=== PATIENT | female | born 1940 | race Caucasian/White ===

== ENCOUNTER → 2016-12-01 | Outpatient (CLI) | payer OTHER ==
[~2016-12-01] MED LIST: AMAN100T PO; ASPI81TA28 PO; CALC600T; CALCTAB5 PO; CARB25TA12 PO; CLON2TAB3 PO; DTR5 PO; ENTA200T PO; GABA-113 PO; MIRT30TA5 PO; OXYB5TAB74 PO; QUET1TAB30 PO; SENNTAB23 PO; ZNTT/150 PO; [UNRECOGNIZED DRUG - CODE] TOP
--- NOTE | 2016-12-01 10:13 | DIAGNOSTIC IMAGING REPORT ---
(BARIUM SWALLOW) ESOPHAGUS CLINICAL HISTORY: G20 Parkinson's [id number] Dysphagia COMPARISON STUDY: None FLUOROSCOPY TIME: 4.1 minutes. FINDINGS: Somewhat diminished oral motility. Trace penetration with no evidence for laith aspiration. Generalized esophageal dysmotility throughout. Moderate generalized esophageal spasm and is mid to distal aspect. Mild gastroesophageal reflux. IMPRESSION: Generalized esophageal dysmotility with spasm of the mid to distal aspect of the esophagus. Mild gastroesophageal reflux. Trace penetration with no evidence for laith aspiration Electronically signed by: Poncho Silverman M.D. 12/01/2016 10:12 AM Dictated Date/Time: 12/01/2016 10:10 AM
== END | disposition home or self-care (01) ==
LOC: C.RAD 09:28
PROVIDERS: ATTEND Nurse Practitioner
DX: R13.10 Dysphagia, unspecified (principal); G20 Parkinson's disease; K22.4 Dyskinesia of esophagus; K21.9 Gastro-esophageal reflux disease without esophagitis

== ENCOUNTER 2017-02-12 10:39 | Inpatient (IN) | payer OTHER ==
[~2017-02-12] VITALS: Ht 160 cm; Wt 57.3 kg
[~2017-02-12 10:39] MED LIST changes: -CALC600T; -OXYB5TAB74 PO; -ZNTT/150 PO
--- NOTE | 2017-02-12 11:00 | EMERGENCY ROOM VISIT NOTE ---
History Report prepared by Logan: Barbara Ortiz Under the Supervision of: Dr. Ubaldo Collins M.D. First contact with patient: 10:50 Chief Complaint: WEAKNESS Stated Complaint: WEAK, HEAD AND LEGS FEEL HEAVY, NO SPEAKING CORREC History of Present Illness The patient is a 76 year old female who presents to the Emergency Room with complaints of a sudden change in mental status that occurred this morning. Per the patient's daughter, the patient has a history of Parkinson's disease. She states that the patient was increasingly confused today. The patient's daughter notes that the patient was weak today as well. She states that is abnormal for the patient, stating that she is typically able to care for herself. The patient's daughter notes that the patient fell the other day and bumped her nose, but denies being evaluated after the fall. She states that the patient has had a normal appetite. The patient's daughter denies the patient having any recent medication change. She denies the patient having any significant history of UTIs. Source of History: family (daughter) Onset: this morning Position: other (global) Quality: other (change in mental status) Timing: other (sudden) Associated Symptoms: + weakness Note: Associated Symptoms: increasingly confused Review of Systems See HPI for pertinent positives & negatives. A total of 10 systems reviewed and were otherwise negative. Past Medical & Surgical Medical Problems: (1) Constipation (2) Parkinson's disease Surgical Problems: (1) Hx of appendectomy (2) Hx of cholecystectomy Family History Patient reports no known family medical history. Social History Smoking Status: Never Smoker Alcohol Use: none Drug Use: none Marital Status: Housing Status: lives with family Occupation Status: disabled Current/Historical Medications Scheduled Amantadine Hcl (Symmetrel), 1 TAB PO BID Aspirin (Aspirin Ec), 81 MG PO DAILY Carbidopa/Levodopa (Sinemet 25MG/100MG), 1 TAB PO QID Clonazepam (Klonopin), 2 MG PO HS Entacapone (Comtan), 200 MG PO QID Gabapentin (Neurontin), 300 MG PO BID Mirtazapine (Mirtazapine Odt), 30 MG PO HS Oxybutynin Chloride (Ditropan), 1 TAB PO BID Quetiapine Fumarate (Seroquel), 25 MG PO HS Ranitidine (Zantac), 1 TAB PO BID Rotigotine (Neupro), 1 MG TOP Q24H Sennosides-Docusate Sodium (Stool Softener), 1 TAB PO QD Miscellaneous Medications Calcium Carbonate (Calcium 600) Allergies Coded Allergies: Flu Virus Vaccine (Unverified Allergy, Mild, UNSURE, 02/12/17) Physical Exam Vital Signs Date Time Temp Pulse Resp B/P Pulse Ox O2 Delivery O2 Flow Rate FiO2 02/12/17 12:45 94 Room Air 02/12/17 12:19 36.5 67 16 98/61 94 Room Air 02/12/17 10:44 36.3 84 20 117/68 96 Room Air Physical Exam GENERAL: Patient is chronically unwell appearing, altered, making nonspecific movements of arms periodically, moves legs periodically, moans, nonverbal. HEENT: No acute trauma, normocephalic atraumatic, mucous membranes moist, no nasal congestion, no scleral icterus. NECK: No stridor, no adenopathy, no meningismus, trachea is midline. LUNGS: No dyspnea. Clear to auscultation and equal bilaterally. No wheeze, no rhonchi. HEART: Regular rate and rhythm. No murmurs, rubs, gallops appreciated. ABDOMEN: Vague suprapubic tenderness to palpation. Soft, bowel sounds positive , no masses appreciated, no peritonitis. BACK: No midline tenderness, no CVA tenderness EXTREMITIES: Normal motion all extremities, no cyanosis, no edema. NEUROLOGIC: Altered, moans, nonverbal, moves arms an legs periodically. SKIN: No rash, no jaundice, no diaphoresis. Medical Decision & Procedures ER Provider Diagnostic Interpretation: Radiology results and stated below per my review and radiologist interpretation: HEAD CT NONCONTRAST CT DOSE: 1326.81 mGy.cm HISTORY: Mental status change AMS TECHNIQUE: Multiaxial CT images of the head were performed without the use of intravenous contrast. Comparison: 09/17/2015 Findings: The paranasal sinuses and mastoid air cells are clear. The calvarium and skull base are intact. The ventricles and sulci are within normal limits. There is no mass, hematoma, midline shift, or acute infarct. Small left-sided subdural hygroma unaltered from the prior exam. No midline shift. Impression: Chronic and age-related change. No acute process. Electronically signed by: Poncho Silverman M.D. 02/12/2017 11:18 AM Dictated Date/Time: 02/12/2017 11:15 AM CHEST ONE VIEW PORTABLE CLINICAL HISTORY: Acute change in mental status. Difficulty speaking. COMPARISON STUDY: No previous studies for comparison. FINDINGS: The heart is normal in size. There is a suboptimal inspiration. There are increased basilar markings, likely on a hypoventilatory basis. There is no lobar consolidation. There is no overt failure. There are no pleural effusions.[ IMPRESSION: Increased basilar markings, likely on a hypoventilatory basis. No evidence of lobar consolidation Electronically signed by: Patrick Herrera M.D. 02/12/2017 11:16 AM Dictated Date/Time: 02/12/2017 11:15 AM Laboratory Results 02/12/17 11:00 Red Blood Count 4.91, Mean Corpuscular Volume 90.4, Mean Corpuscular Hemoglobin 31.4, Mean Corpuscular Hemoglobin Concent 34.7, Mean Platelet Volume 9.4, Neutrophils (%) (Auto) 84.6, Lymphocytes (%) (Auto) 10.6, Monocytes (%) (Auto) 4.1, Eosinophils (%) (Auto) 0.3, Basophils (%) (Auto) 0.3, Neutrophils # (Auto) 6.32, Lymphocytes # (Auto) 0.79, Monocytes # (Auto) 0.31, Eosinophils # (Auto) 0.02, Basophils # (Auto) 0.02 02/12/17 11:00 Test 02/12/17 10:55 02/12/17 11:00 02/12/17 11:15 Bedside Glucose 111 mg/dl (70-90) White Blood Count 7.47 K/uL (4.8-10.8) Red Blood Count 4.91 M/uL (4.2-5.4) Hemoglobin 15.4 g/dL (12.0-16.0) Hematocrit 44.4 % (37-47) Mean Corpuscular Volume 90.4 fL (80-100) Mean Corpuscular Hemoglobin 31.4 pg (25-34) Mean Corpuscular Hemoglobin Concent 34.7 g/dl (32-36) Platelet Count 210 K/uL (130-400) Mean Platelet Volume 9.4 fL (7.4-10.4) Neutrophils (%) (Auto) 84.6 % Lymphocytes (%) (Auto) 10.6 % Monocytes (%) (Auto) 4.1 % Eosinophils (%) (Auto) 0.3 % Basophils (%) (Auto) 0.3 % Neutrophils # (Auto) 6.32 K/uL (1.4-6.5) Lymphocytes # (Auto) 0.79 K/uL (1.2-3.4) Monocytes # (Auto) 0.31 K/uL (0.11-0.59) Eosinophils # (Auto) 0.02 K/uL (0-0.5) Basophils # (Auto) 0.02 K/uL (0-0.2) RDW Standard Deviation 43.4 fL (36.4-46.3) RDW Coefficient of Variation 13.2 % (11.5-14.5) Immature Granulocyte % (Auto) 0.1 % Immature Granulocyte # (Auto) 0.01 K/uL (0.00-0.02) Prothrombin Time 10.9 SECONDS (9.0-12.0) Prothromb Time International Ratio 1.0 (0.9-1.1) Activated Partial Thromboplast Time 29.2 SECONDS (21.0-31.0) Partial Thromboplastin Ratio 1.1 Anion Gap 4.0 mmol/L (3-11) Estimated GFR () 79.4 Estimated GFR (Non- 68.5 BUN/Creatinine Ratio 24.6 (10-20) Calcium Level 8.5 mg/dl (8.5-10.1) Total Bilirubin 0.8 mg/dl (0.2-1) Direct Bilirubin 0.2 mg/dl (0-0.2) Aspartate Amino Transf (AST/SGOT) 9 U/L (15-37) Alanine Aminotransferase (ALT/SGPT) 9 U/L (12-78) Alkaline Phosphatase 119 U/L (45-117) Troponin I < 0.015 ng/ml (0-0.045) Total Protein 6.8 gm/dl (6.4-8.2) Albumin 4.1 gm/dl (3.4-5.0) Urine Color ORANGE Urine Appearance C (CLEAR) Urine pH (4.5-7.5) Urine Specific [place] (1.000-1.030) Urine Protein NEG (NEG) Urine Glucose (UA) (NEG) Urine Ketones (NEG) Urine Occult Blood (NEG) Urine Nitrite (NEG) Urine Bilirubin (NEG) Urine Urobilinogen (NEG) Urine Leukocyte Esterase (NEG) Urine RBC 10-30 /hpf (0-4) Urine WBC >30 /hpf (0-5) Urine Epithelial Cells 0-5 /lpf (0-5) Urine Bacteria 1+ (NEG) Laboratory results as reviewed by me. Medications Administered Medications (Trade) Dose Ordered Sig/Shreyas Route Start Time Stop Time Status Last Admin Dose Admin Ceftriaxone Sodium (Rocephin Inj) 1 gm NOW STAT IV 02/12/17 12:21 02/12/17 12:22 DC 02/12/17 12:27 1 GM ECG Indication: altered mental status Rate (beats per minute): 69 Rhythm: normal sinus Findings: PVC, no acute ischemic change, other (no STEMI) ED Course 1050: The patient was evaluated in room C9. A complete history and physical exam was performed. 1221: Ordered Rocephin Inj 1 gm IV. 1225: I reevaluated the patient and she is stable. I discussed the exam findings with her and her family and I discussed the treatment plan. They verbalized complete understanding and agreement. The patient will be evaluated for further treatment. 1229: I discussed the patients case with SHANE Vieyra. He is going to evaluate the patient for further treatment. Medical Decision Differential: Toxicological, Infectious, Stroke, SAH, Trauma, Electrolyte Abnormality, Hypoglycemia, Alcohol Intoxication, Drug Intoxication, Cardiac Abnormality, Sepsis, Meningitis/Encephalitis, Trauma, Excited Delirium, Serotonin Syndrome, Psychiatric, amongst other pathologies entertained. 76 yr old female with parkinson's disease who arrives for worsening mental status over last 24 hours with confusion. She is not at her baseline per family. She has urine with possible UTI. She does not appear meningitic. No other clear evidence of infection. Suspect UTI causing AMS. Will give rocephin and bring in as family notes they are unable to care for her like this. Not septic appearing. Consults Time Called: 1225 Consulting Physician: SHANE Vieyra Returned Call: 1229 I discussed the patients case with SHANE Vieyra. He is going to evaluate the patient for further treatment. Impression Primary Impression: UTI (urinary tract infection) Additional Impression: Altered mental status Scribe Attestation The scribe's documentation has been prepared under my direction and personally reviewed by me in its entirety. I confirm that the note above accurately reflects all work, treatment, procedures, and medical decision making performed by me. Departure Information Dispostion Being Evaluated By Hospitalist Christine Christianson C.R.N.P. (PCP) Problem Qualifiers Primary Impression: UTI (urinary tract infection) Urinary tract infection type: acute cystitis Hematuria presence: without hematuria Qualified Codes: N30.00 - Acute cystitis without hematuria Additional Impression: Altered mental status Altered mental status type: disorientation Qualified Codes: R41.0 - Disorientation, unspecified
[2017-02-12 11:14] LABS: BASO % 0.3 %; BASO ABS # 0.02 K/uL (0-0.2); COMPLETE YES; EOS % 0.3 %; HEMATOCRIT 44.4 % (37-47); IG% 0.1 %; LYMPH % 10.6 %; LYMPH ABS # 0.79 K/uL (1.2-3.4); MEAN CELL VOLUME 90.4 fL (80-100); MEAN CORPUSCULAR HEMOGLOBIN 31.4 pg (25-34); MEAN CORPUSCULAR HGB CONC 34.7 g/dl (32-36); MEAN PLATELET VOLUME 9.4 fL (7.4-10.4); MONO % 4.1 %; NEUT % 84.6 %; PLATELET COUNT 210 K/uL (130-400); RED BLOOD COUNT 4.91 M/uL (4.2-5.4); WHITE BLOOD COUNT 7.47 K/uL (4.8-10.8)
--- NOTE | 2017-02-12 11:18 | DIAGNOSTIC IMAGING REPORT ---
CHEST ONE VIEW PORTABLE CLINICAL HISTORY: Acute change in mental status. Difficulty speaking. COMPARISON STUDY: No previous studies for comparison. FINDINGS: The heart is normal in size. There is a suboptimal inspiration. There are increased basilar markings, likely on a hypoventilatory basis. There is no lobar consolidation. There is no overt failure. There are no pleural effusions.[ IMPRESSION: Increased basilar markings, likely on a hypoventilatory basis. No evidence of lobar consolidation Electronically signed by: Patrick Herrera M.D. 02/12/2017 11:16 AM Dictated Date/Time: 02/12/2017 11:15 AM
--- NOTE | 2017-02-12 11:20 | DIAGNOSTIC IMAGING REPORT ---
HEAD CT NONCONTRAST CT DOSE: 1326.81 mGy.cm HISTORY: Mental status change AMS TECHNIQUE: Multiaxial CT images of the head were performed without the use of intravenous contrast. Comparison: 09/17/2015 Findings: The paranasal sinuses and mastoid air cells are clear. The calvarium and skull base are intact. The ventricles and sulci are within normal limits. There is no mass, hematoma, midline shift, or acute infarct. Small left-sided subdural hygroma unaltered from the prior exam. No midline shift. Impression: Chronic and age-related change. No acute process. Electronically signed by: Poncho Silverman M.D. 02/12/2017 11:18 AM Dictated Date/Time: 02/12/2017 11:15 AM
[2017-02-12 11:23] LABS: PARTIAL THROMBOPLASTIN RATIO 1.1; PROTHROMBIN TIME (PATIENT) 10.9 SECONDS (9.0-12.0)
[2017-02-12 11:28] LABS: ALT/SGPT 9 U/L (12-78); BLOOD UREA NITROGEN 20 mg/dl (7-18); BUN/CREATININE RATIO 24.6 (10-20); CALCIUM 8.5 mg/dl (8.5-10.1); CARBON DIOXIDE 29 mmol/L (21-32); CHLORIDE 112 mmol/L (98-107); CREATININE 0.82 mg/dl (0.60-1.20); GLUCOSE 113 mg/dl (70-99); POTASSIUM 3.7 mmol/L (3.5-5.1); SODIUM 145 mmol/L (136-145)
[2017-02-12 11:30] LABS: MANUAL MICROSCOPIC REQUIRED? YES; REVIEW REQ? NO; URINE APPEARANCE C (CLEAR); URINE COLOR ORANGE
[2017-02-12 11:34] LABS: ALKALINE PHOSPHATASE 119 U/L (45-117); AST/SGOT 9 U/L (15-37)
[2017-02-12 11:35] LABS: SULFASALICYLIC ACID NEG (NEG)
[2017-02-12 11:50] LABS: URINE WBC >30 /hpf (0-5)
[2017-02-12 11:58] LABS: ZZURINE CULT IF INDIC CATH YES
[2017-02-12 11:59] LABS: URINE BACTERIA 1+ (NEG)
[2017-02-12] MEDS ORDERED: DTR/5 PO (12:12)
[2017-02-12] MEDS ORDERED: ZNTT/150 PO (12:12)
[2017-02-12] MEDS ORDERED: CALC600T PO (12:12)
[2017-02-12] MEDS ORDERED: CEFTRIAXONE SOD INJ 1 GM ADDVIAL IV STA (12:21)
[2017-02-12 12:45] VITALS: O2SAT 94
[2017-02-12] MEDS ORDERED: ONDANSETRON INJ 2 MG/ML 2 ML VIAL IV PRN (13:15)
--- NOTE | 2017-02-12 13:31 | History and Physical ---
History & Physical Date & Time of Service: Feb 12, 2017 at 13:09 Chief Complaint: Weak, Head And Legs Feel Heavy, No Speaking [facility] Primary Care Physician: Christine Her C.R.N.P. 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 The patient is present with her [id number]. The patient has akathisia throughout the exam, but is overall able to tell me history. She has some difficulty saying what she wants to say, and speaks in a very soft tone. Pt reports dysuria and increased urinary frequency x 2-3 days. It has been discolored, orange, but has been like this for a long time. She denies gross hematuria. Today she developed lethargy, difficulty with ambulation, and weakness. She denies headache, slurred speech, or unilateral motor changes or weakness. She normally is able to dress and feed herself, but this morning required assistance. Pt has been able to eat and drink without difficulty although was recently seen for episode of dysphagia a few months ago. Her last BM was yesterday and was soft and brown. She lives at home with her son, the daughter in law who is present, and grandson who help care for her. She does not require supplemental O2, and typically ambulates without assistance. In the ED the pt UA appears dirty, with +RBCs, >30 WBC and 1+ bacteruria, nitrate and esterase were not able to be evaulated in the lab. Her labs are essentially unremarkable without leukocytosis. VSS. CT head obtained and is negative for acute findings. CXR is clear. Past Medical/Surgical History Medical Problems: (1) Constipation Status: Resolved (2) Parkinson's disease Status: Chronic Family History Patient reports no known family medical history. Social History Smoking Status: Never Smoker Smokeless Tobacco Use: No Alcohol Use: none Drug Use: none Marital Status: Housing status: lives with family Occupational Status: disabled Multi-Drug Resistant Organisms History of MDRO: No Allergies Coded Allergies: Flu Virus Vaccine (Unverified Allergy, Mild, UNSURE, 02/12/17) Home Medications Scheduled Amantadine Hcl (Symmetrel), 1 TAB PO BID Aspirin (Aspirin Ec), 81 MG PO DAILY Carbidopa/Levodopa (Sinemet 25MG/100MG), 1 TAB PO QID Clonazepam (Klonopin), 2 MG PO HS Entacapone (Comtan), 200 MG PO QID Gabapentin (Neurontin), 300 MG PO BID Mirtazapine (Mirtazapine Odt), 30 MG PO HS Oxybutynin Chloride (Ditropan), 1 TAB PO BID Quetiapine Fumarate (Seroquel), 25 MG PO HS Ranitidine (Zantac), 1 TAB PO BID Rotigotine (Neupro), 1 MG TOP Q24H Sennosides-Docusate Sodium (Stool Softener), 1 TAB PO QD Miscellaneous Medications Calcium Carbonate (Calcium 600) Review of Systems Constitutional: + fatigue, + weakness, No chills, No fever, No sweats Eyes: No diplopia, No worsening of vision ENT: No sore throat, No trouble swallowing Respiratory: No cough, No shortness of breath, No wheezing Cardiovascular: No chest pain, No palpitations Abdomen: No constipation, No diarrhea, No nausea, No pain, No vomiting Musculoskeletal: No calf pain, No joint pain, No swelling Genitourinary - Female: + dysuria, + urinary frequency, No hematuria Neurologic: + problem reported (Parkinsons disease with akathesia), No numbness /tingling Endocrine: + fatigue Integumentary: No itch, No rash Physical Exam Vital Signs Date Time Temp Pulse Resp B/P Pulse Ox O2 Delivery O2 Flow Rate FiO2 02/12/17 12:45 94 Room Air 02/12/17 12:19 36.5 67 16 98/61 94 Room Air 02/12/17 10:44 36.3 84 20 117/68 96 Room Air General Appearance: WD/WN, + mild distress, + pertinent finding (continuous akathesia during interview and exam, does not appear uncomfortable) Head: normocephalic, atraumatic Eyes: PERRL, EOMI ENT: hearing grossly normal, pharynx normal, + pertinent finding (upper dentures) Neck: supple, no JVD Respiratory/Chest: lungs clear, normal breath sounds, no respiratory distress, no accessory muscle use Cardiovascular: regular rate, rhythm, no JVD, no murmur, normal peripheral pulses Abdomen/GI: normal bowel sounds, non tender, soft Extremities/Musculoskelatal: normal inspection, no calf tenderness, no pedal edema Neurologic/Psych: alert, oriented x 3, + pertinent finding (+akasthesia involving upper extremities, tongue, and facial grimacing. ) Skin: normal color, warm/dry Diagnostics Laboratory Results Results Past 24 Hours Test 02/12/17 10:55 02/12/17 11:00 02/12/17 11:15 Range/Units Bedside Glucose 111 70-90 mg/dl White Blood Count 7.47 4.8-10.8 K/uL Red Blood Count 4.91 4.2-5.4 M/uL Hemoglobin 15.4 12.0-16.0 g/dL Hematocrit 44.4 37-47 % Mean Corpuscular Volume 90.4 80-100 fL Mean Corpuscular Hemoglobin 31.4 25-34 pg Mean Corpuscular Hemoglobin Concent 34.7 32-36 g/dl Platelet Count 210 130-400 K/uL Mean Platelet Volume 9.4 7.4-10.4 fL Neutrophils (%) (Auto) 84.6 % Lymphocytes (%) (Auto) 10.6 % Monocytes (%) (Auto) 4.1 % Eosinophils (%) (Auto) 0.3 % Basophils (%) (Auto) 0.3 % Neutrophils # (Auto) 6.32 1.4-6.5 K/uL Lymphocytes # (Auto) 0.79 1.2-3.4 K/uL Monocytes # (Auto) 0.31 0.11-0.59 K/uL Eosinophils # (Auto) 0.02 0-0.5 K/uL Basophils # (Auto) 0.02 0-0.2 K/uL RDW Standard Deviation 43.4 36.4-46.3 fL RDW Coefficient of Variation 13.2 11.5-14.5 % Immature Granulocyte % (Auto) 0.1 % Immature Granulocyte # (Auto) 0.01 0.00-0.02 K/uL Prothrombin Time 10.9 9.0-12.0 SECONDS Prothromb Time International Ratio 1.0 0.9-1.1 Activated Partial Thromboplast Time 29.2 21.0-31.0 SECONDS Partial Thromboplastin Ratio 1.1 Sodium Level 145 136-145 mmol/L Potassium Level 3.7 3.5-5.1 mmol/L Chloride Level 112 98-107 mmol/L Carbon Dioxide Level 29 21-32 mmol/L Anion Gap 4.0 3-11 mmol/L Blood Urea Nitrogen 20 7-18 mg/dl Creatinine 0.82 0.60-1.20 mg/dl Estimated GFR () 79.4 Estimated GFR (Non- 68.5 BUN/Creatinine Ratio 24.6 10-20 Random Glucose 113 70-99 mg/dl Calcium Level 8.5 8.5-10.1 mg/dl Total Bilirubin 0.8 0.2-1 mg/dl Direct Bilirubin 0.2 0-0.2 mg/dl Aspartate Amino Transf (AST/SGOT) 9 15-37 U/L Alanine Aminotransferase (ALT/SGPT) 9 12-78 U/L Alkaline Phosphatase 119 45-117 U/L Troponin I < 0.015 0-0.045 ng/ml Total Protein 6.8 6.4-8.2 gm/dl Albumin 4.1 3.4-5.0 gm/dl Urine Color ORANGE Urine Appearance C CLEAR Urine pH 4.5-7.5 Urine Specific [place] 1.000-1.030 Urine Protein NEG NEG Urine Glucose (UA) NEG Urine Ketones NEG Urine Occult Blood NEG Urine Nitrite NEG Urine Bilirubin NEG Urine Urobilinogen NEG Urine Leukocyte Esterase NEG Urine RBC 10-30 0-4 /hpf Urine WBC >30 0-5 /hpf Urine Epithelial Cells 0-5 0-5 /lpf Urine Bacteria 1+ NEG Microbiology Results 02/12/17 Urine Culture, Received Pending Diagnostic Radiology HEAD CT NONCONTRAST CT DOSE: 1326.81 mGy.cm HISTORY: Mental status change AMS TECHNIQUE: Multiaxial CT images of the head were performed without the use of intravenous contrast. Comparison: 09/17/2015 Findings: The paranasal sinuses and mastoid air cells are clear. The calvarium and skull base are intact. The ventricles and sulci are within normal limits. There is no mass, hematoma, midline shift, or acute infarct. Small left-sided subdural hygroma unaltered from the prior exam. No midline shift. Impression: Chronic and age-related change. No acute process. Electronically signed by: Poncho Silverman M.D. 02/12/2017 11:18 AM Dictated Date/Time: 02/12/2017 11:15 AM The status of this report is Signed. CHEST ONE VIEW PORTABLE CLINICAL HISTORY: Acute change in mental status. Difficulty speaking. COMPARISON STUDY: No previous studies for comparison. FINDINGS: The heart is normal in size. There is a suboptimal inspiration. There are increased basilar markings, likely on a hypoventilatory basis. There is no lobar consolidation. There is no overt failure. There are no pleural effusions.[ IMPRESSION: Increased basilar markings, likely on a hypoventilatory basis. No evidence of lobar consolidation Electronically signed by: Patrick Herrera M.D. 02/12/2017 11:16 AM Dictated Date/Time: 02/12/2017 11:15 AM The status of this report is Signed. CXR normal EKG Vent. rate 69 BPM TX interval 150 ms QRS duration 82 ms QT/QTc 390/417 ms P-R-T axes 39 -2 0 NSR. T wave inversion in the inferior leads. 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 UTI - Admit to med surg - UA appears dirty, with +RBCs, >30 WBC and 1+ bacteruria, nitrate and esterase were not able to be evaulated in the lab. - Started on ceftriaxone IV in the ED, will continue - UA appears dirty, follow UCx results and sensitivities - Other infectious sources ruled out, CXR appears clear. No leukocytosis, afebrile. - CBC and PRP QOD. - Cont oxybutinin for now - Will order pyridium for pain for now - PT/OT Parkinsons disease - CT head obtained to rule out acute infarct, no new or acute changes seen. - Will continue the patient on her [employer] meds including: Sinemet 50-200 mg five times daily, Neurpro transdermal patch 2mg daily, and entacpone 200 mg five times daily with Sinemet. Insomnia - Will continue seroquel 25 mg QHS - Hold mirtazapine as pt daughter reports she has not been using this at home due to worsening visual hallucinations with mirtazapine and seroquel together. She states visual hallucinations have not been present since eliminating mirtazapine. Do not continue this on discharge. GERD - Cont ranitidine 150 mg daily DVT ppx: lovenox sq, teds, scds CODE STATUS: FULL CODE; discussion help with [id number] and son, Jayy, over the phone. Pt stated she would not want be a full code, and was stating no CPR/ventilation. Due to mental status being off from baseline, will order Full code as son is POA and this is his wish. I have asked them to discuss this in detail w/ pt when her status has improved. Disposition: From home, PT/OT evals, discharge when medically stable Level of Care Med/Surg Advanced Directives Existing Living Will: Yes Existing Power of Trim Setter Helper: Yes (JAYY SON ) Resuscitation Status FULL RESUSCITATION VTE Prophylaxis VTE Risk Assessment Done? Y/N: Yes Risk Level: Low Given or contraindicated: Enoxaparin (Lovenox)SQ, T.E.D. Stockings, SCD's
[2017-02-12] MEDS ORDERED: POLYETHYLENE (MIRALAX) 17 GM PACK PO PRN (14:00)
[2017-02-12 14:31] VITALS: BP 127/81; TEMP 36.4; O2SAT 95
[2017-02-12 16:00] VITALS: O2SAT 95
[2017-02-12 16:18] VITALS: PULSE 56; TEMP 36.3; O2SAT 92
[2017-02-12] MEDS: CARBIDOPA/LEVODOPA 25/100MG TAB PO SCH ×2 (16:37→20:00)
[2017-02-12] MEDS: ENTACAPONE 200 MG TAB PO SCH ×2 (16:37→20:00)
[2017-02-12] MEDS ORDERED: ENTACAPONE 200 MG TAB PO SCH (17:00)
[2017-02-12 17:12] VITALS: BP 141/84
[2017-02-12] MEDS: PATIENT'S HEIGHT AND/OR WEIGHT NEEDED SCH ×2 (17:36→18:11)
[2017-02-12] MEDS: ACETAMINOPHEN 325 MG TAB PO PRN (17:40)
[2017-02-12 18:10] VITALS: Ht 160 cm; Wt 57.3 kg
[2017-02-12] MEDS: PHENAZOPYRIDINE HCL 100 MG TAB PO SCH (20:00)
[2017-02-12] MEDS: RANITIDINE HCL 150 MG TAB PO SCH (20:00)
[2017-02-12] MEDS: OXYBUTYNIN CHLORIDE 5 MG TAB PO SCH (20:00)
[2017-02-12] MEDS: AMANTADINE HCL 100 MG CAP PO SCH (20:00)
[2017-02-12] MEDS: GABAPENTIN 300 MG CAP PO SCH (20:00)
[2017-02-12] MEDS: ENOXAPARIN 30 MG/0.3 ML SYR SQ SCH (20:44)
[2017-02-12] MEDS: CLONAZEPAM 1 MG TAB PO SCH (21:00)
[2017-02-12] MEDS: QUETIAPINE FUMARATE 25 MG TAB PO SCH (21:00)
[2017-02-13 00:26] VITALS: BP 150/75; PULSE 79; TEMP 36.8; O2SAT 94
[2017-02-13 08:00] VITALS: O2SAT 94
[2017-02-13] MEDS: RANITIDINE HCL 150 MG TAB PO SCH ×2 (08:57→21:43)
[2017-02-13] MEDS: AMANTADINE HCL 100 MG CAP PO SCH ×2 (08:57→21:43)
[2017-02-13] MEDS: DOCUSATE SODIUM/SENNA 50/8.6MG TAB PO SCH (08:57)
[2017-02-13] MEDS: PHENAZOPYRIDINE HCL 100 MG TAB PO SCH ×3 (08:57→21:43)
[2017-02-13] MEDS: ENTACAPONE 200 MG TAB PO SCH ×4 (08:57→21:42)
[2017-02-13] MEDS: GABAPENTIN 300 MG CAP PO SCH ×2 (08:58→21:43)
[2017-02-13] MEDS: OXYBUTYNIN CHLORIDE 5 MG TAB PO SCH ×2 (08:58→21:43)
[2017-02-13] MEDS: ASPIRIN 81 MG ECTAB PO SCH (08:58)
[2017-02-13] MEDS: CARBIDOPA/LEVODOPA 25/100MG TAB PO SCH ×4 (08:58→21:43)
[2017-02-13] MEDS: ENOXAPARIN 30 MG/0.3 ML SYR SQ SCH ×3 (08:59→21:44)
--- NOTE | 2017-02-13 10:38 | Hospitalist Progress Note ---
Hospitalist Progress Note Date of Service Feb 13, 2017. (Naty Lim ., ROSY) Subjective Pt evaluation today including: conversation w/ patient, conversation w/ family ([id number] ), physical exam, chart review, lab review, review of studies, review of inpatient medication list ROS limited to mental status; patient denies any CP, SOB, abdominal pain, urinary symptoms, or significant pain. Daughter-in -law present- patient still appears confused with no improvement in her symptoms. At baseline, patient is usually talkative, ambulates on her own, and cares for herself. (Naty Lim ., SANDERC) Medications Current Inpatient Medications Medications (Trade) Dose Ordered Sig/Shreyas Route Start Time Stop Time Status Last Admin Dose Admin Enoxaparin Sodium (Lovenox Inj) 30 mg Q12 SQ 02/12/17 21:00 03/14/17 20:59 02/13/17 08:59 30 MG Acetaminophen (Tylenol Tab) 650 mg Q4H PRN PO 02/12/17 13:15 03/14/17 13:14 02/12/17 17:40 650 MG Polyethylene (Miralax Powder Packet) 17 gm DAILY PRN PO 02/12/17 14:00 03/14/17 13:59 Ondansetron HCl (Zofran Inj) 4 mg Q6H PRN IV 02/12/17 13:15 03/14/17 13:14 Amantadine HCl (Symmetrel Cap) 100 mg BID PO 02/12/17 20:00 03/14/17 20:59 02/13/17 08:57 100 MG Aspirin (Ecotrin Tab) 81 mg DAILY PO 02/13/17 08:00 03/15/17 08:59 02/13/17 08:58 81 MG Carbidopa/Levodopa (Sinemet 25/ 100MG Tab) 1 tab QID PO 02/12/17 17:00 03/14/17 16:59 02/13/17 08:58 1 TAB Clonazepam (Klonopin Tab) 2 mg HS PO 02/12/17 21:00 03/14/17 20:59 Gabapentin (Neurontin Cap) 300 mg BID PO 02/12/17 20:00 03/14/17 20:59 02/13/17 08:58 300 MG Oxybutynin Chloride (Ditropan Tab) 5 mg BID PO 02/12/17 20:00 03/14/17 20:59 02/13/17 08:58 5 MG Quetiapine Fumarate (seroQUEL TAB) 25 mg HS PO 02/12/17 21:00 03/14/17 20:59 Ranitidine HCl (zANTac TAB) 150 mg BID PO 02/12/17 20:00 03/14/17 20:59 02/13/17 08:57 150 MG Senna/Docusate Sodium (Senokot S Tab) 1 tab DAILY PO 02/13/17 08:00 03/15/17 07:59 02/13/17 08:57 1 TAB Miscellaneous Information 1 ea 1 ea QS N/A 02/12/17 16:00 03/14/17 15:59 Ceftriaxone Sodium/Dextrose (Rocephin Inj/ Dextrose Add-[place] 50ML) 50 ml @ 100 mls/hr DAILY@1200 IV 02/13/17 12:00 02/22/17 11:59 Phenazopyridine HCl (Pyridium Tab) 100 mg TID PO 02/12/17 20:00 03/14/17 19:59 02/13/17 08:57 100 MG Entacapone (Comtan) 200 mg QID PO 02/12/17 17:00 03/14/17 16:59 02/13/17 08:57 200 MG (Naty Lim, PA-C) Objective Vital Signs Date Time Temp Pulse Resp B/P Pulse Ox O2 Delivery O2 Flow Rate FiO2 02/13/17 08:00 94 Room Air 02/13/17 00:26 36.8 79 16 150/75 94 Room Air 02/12/17 23:30 Room Air 02/12/17 17:12 141/84 02/12/17 16:18 36.3 56 18 92 Room Air 02/12/17 16:00 95 Room Air 02/12/17 14:31 36.4 16 127/81 95 Room Air 02/12/17 14:05 36.5 60 16 103/62 93 02/12/17 13:37 60 16 103/62 93 Room Air 02/12/17 12:45 94 Room Air 02/12/17 12:19 36.5 67 16 98/61 94 Room Air 02/12/17 10:44 36.3 84 20 117/68 96 Room Air (Naty Lim, PA-C) Physical Exam General Appearance: no apparent distress Eyes: normal inspection, PERRL ENT: hearing grossly normal Neck: supple Respiratory/Chest: lungs clear, no respiratory distress, no accessory muscle use Cardiovascular: regular rate, rhythm Abdomen: normal bowel sounds, non tender, soft Extremities: no pedal edema, no calf tenderness Neurologic/Psychiatric: alert, + motor weakness (bilateral upper/lower extremities ), + disoriented Skin: normal color, warm/dry, no rash (Naty Lim, KODI-C) Laboratory Results Last 24 Hours Test 02/12/17 10:55 02/12/17 11:00 02/12/17 11:15 Bedside Glucose 111 mg/dl White Blood Count 7.47 K/uL Red Blood Count 4.91 M/uL Hemoglobin 15.4 g/dL Hematocrit 44.4 % Mean Corpuscular Volume 90.4 fL Mean Corpuscular Hemoglobin 31.4 pg Mean Corpuscular Hemoglobin Concent 34.7 g/dl Platelet Count 210 K/uL Mean Platelet Volume 9.4 fL Neutrophils (%) (Auto) 84.6 % Lymphocytes (%) (Auto) 10.6 % Monocytes (%) (Auto) 4.1 % Eosinophils (%) (Auto) 0.3 % Basophils (%) (Auto) 0.3 % Neutrophils # (Auto) 6.32 K/uL Lymphocytes # (Auto) 0.79 K/uL Monocytes # (Auto) 0.31 K/uL Eosinophils # (Auto) 0.02 K/uL Basophils # (Auto) 0.02 K/uL RDW Standard Deviation 43.4 fL RDW Coefficient of Variation 13.2 % Immature Granulocyte % (Auto) 0.1 % Immature Granulocyte # (Auto) 0.01 K/uL Prothrombin Time 10.9 SECONDS Prothromb Time International Ratio 1.0 Activated Partial Thromboplast Time 29.2 SECONDS Partial Thromboplastin Ratio 1.1 Sodium Level 145 mmol/L Potassium Level 3.7 mmol/L Chloride Level 112 mmol/L Carbon Dioxide Level 29 mmol/L Anion Gap 4.0 mmol/L Blood Urea Nitrogen 20 mg/dl Creatinine 0.82 mg/dl Estimated GFR () 79.4 Estimated GFR (Non- 68.5 BUN/Creatinine Ratio 24.6 Random Glucose 113 mg/dl Calcium Level 8.5 mg/dl Total Bilirubin 0.8 mg/dl Direct Bilirubin 0.2 mg/dl Aspartate Amino Transf (AST/SGOT) 9 U/L Alanine Aminotransferase (ALT/SGPT) 9 U/L Alkaline Phosphatase 119 U/L Troponin I < 0.015 ng/ml Total Protein 6.8 gm/dl Albumin 4.1 gm/dl Urine Color ORANGE Urine Appearance C Urine pH Urine Specific [place] Urine Protein NEG Urine Glucose (UA) Urine Ketones Urine Occult Blood Urine Nitrite Urine Bilirubin Urine Urobilinogen Urine Leukocyte Esterase Urine RBC 10-30 /hpf Urine WBC >30 /hpf Urine Epithelial Cells 0-5 /lpf Urine Bacteria 1+ (Naty Lim, PA-C) Assessment and Plan This is a 76 yo F with PMHx of 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 UTI: - Admit to med surg - UA dirty, UCx pending - Continue Ceftriaxone IV pending UCx - Cont Oxybutinin BID - Pyridium for pain control - PT/OT Parkinson's disease: - CT head obtained to rule out acute infarct, no new or acute changes seen - Continue Sinemet 50-200 mg five times daily, Neurpro transdermal patch 2mg daily, and Entacpone 200 mg five times daily with Sinemet. Insomnia: - Will continue Seroquel 25 mg QHS - Hold mirtazapine as pt daughter reports she has not been using this at home due to worsening visual hallucinations with mirtazapine and seroquel together. She states visual hallucinations have not been present since eliminating mirtazapine. Do not continue this on discharge. GERD: Continue Ranitidine 150 mg daily GI Prophylaxis: Zantac, IV Zofran PRN, MiraLAX DVT ppx: lovenox sq, teds, scds CODE STATUS: LEVEL I, FULL CODE; discussion help with [id number] and son, Jayy, over the phone. -- Pt stated she would not want be a full code, and was stating no CPR/ ventilation. Due to mental status being off from baseline, will order full code as son is POA and this is his wish. Re-discuss w// pt when her mental status has improved. Disposition: From home, PT/OT evals, discharge when medically stable (Naty Lim ., PA-C) PA Physician Supervision Note: I interviewed and examined the patient. Discussed with Naty COLLINS and agree with findings and plan as documented in the note. 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 Metabolic encephalopathy, uti poa, Ceftriaxone IV pending UCx - Oxybutinin BID - Pyridium for pain control Parkinson's disease:- CT head no acute infarct, no new or acute changes seen - Continue Sinemet 50-200 mg five times daily, Neurpro transdermal patch 2mg daily, and Entacpone 200 mg five times daily with Sinemet. despite office notes my concern is some underlying parkinsons dementia Insomnia:Seroquel 25 mg QHS - Hold mirtazapine as pt daughter reports pt experienced visual hallucinations with mirtazapine resolving after stopping med DVT ppx: lovenox sq, teds, scds CODE STATUS: LEVEL I, FULL CODE; as son is POA and this is his wish. Documented By: Antonio Rosas (Antonio Rosas M.D.)
[2017-02-13] MEDS: CEFTRIAXONE SOD INJ 1 GM in DEXTROSE 5% ADD-VANTAGE 50ML 50 ML IV SCH (11:54)
[2017-02-13] MEDS: ACETAMINOPHEN 325 MG TAB PO PRN (14:06)
[2017-02-13 16:00] VITALS: O2SAT 95
[2017-02-13 16:07] VITALS: BP 167/90; PULSE 78; TEMP 36.5; O2SAT 94
[2017-02-13 16:31] VITALS: BP 157/80
[2017-02-13] MEDS ORDERED: HALOPERIDOL LACTATE 5 MG/ML 1 ML VIAL IM ONE (19:45)
[2017-02-13] MEDS ORDERED: HALOPERIDOL LACTATE 5 MG/ML 1 ML VIAL IV ONE (19:45)
[2017-02-13] MEDS ORDERED: NURSING VERBAL MED ORDER ONE (19:45)
[2017-02-13] MEDS: QUETIAPINE FUMARATE 25 MG TAB PO SCH (21:44)
[2017-02-13] MEDS: CLONAZEPAM 1 MG TAB PO SCH (21:44)
[2017-02-13 22:38] VITALS: BP 137/70; PULSE 74; TEMP 36.5; O2SAT 96
[2017-02-14 08:03] LABS: BASO % 0.3 %; BASO ABS # 0.03 K/uL (0-0.2); COMPLETE YES; EOS % 0.6 %; HEMATOCRIT 45.8 % (37-47); IG% 0.2 %; LYMPH % 12.6 %; MEAN CELL VOLUME 90.3 fL (80-100); MEAN CORPUSCULAR HEMOGLOBIN 31.6 pg (25-34); MEAN CORPUSCULAR HGB CONC 34.9 g/dl (32-36); MEAN PLATELET VOLUME 9.6 fL (7.4-10.4); MONO % 7.4 %; NEUT % 78.9 %; PLATELET COUNT 206 K/uL (130-400); RED BLOOD COUNT 5.07 M/uL (4.2-5.4); WHITE BLOOD COUNT 8.74 K/uL (4.8-10.8)
[2017-02-14 08:10] VITALS: BP 134/80; PULSE 72; TEMP 36.8; O2SAT 94
[2017-02-14 08:50] VITALS: O2SAT 94
[2017-02-14] MEDS: OXYBUTYNIN CHLORIDE 5 MG TAB PO SCH (10:57)
[2017-02-14] MEDS: GABAPENTIN 300 MG CAP PO SCH ×2 (10:57→18:05)
[2017-02-14] MEDS: PHENAZOPYRIDINE HCL 100 MG TAB PO SCH ×2 (10:57→13:36)
[2017-02-14] MEDS: RANITIDINE HCL 150 MG TAB PO SCH ×2 (10:58→18:05)
[2017-02-14] MEDS: CARBIDOPA/LEVODOPA 25/100MG TAB PO SCH ×4 (10:58→21:09)
[2017-02-14] MEDS: AMANTADINE HCL 100 MG CAP PO SCH ×2 (10:58→18:05)
[2017-02-14] MEDS: ENTACAPONE 200 MG TAB PO SCH ×4 (10:58→21:09)
[2017-02-14] MEDS: DOCUSATE SODIUM/SENNA 50/8.6MG TAB PO SCH (10:59)
[2017-02-14] MEDS: ASPIRIN 81 MG ECTAB PO SCH (11:00)
[2017-02-14] MEDS: ENOXAPARIN 30 MG/0.3 ML SYR SQ SCH ×2 (11:01→21:07)
[2017-02-14] MEDS: CEFTRIAXONE SOD INJ 1 GM in DEXTROSE 5% ADD-VANTAGE 50ML 50 ML IV SCH (11:48)
[2017-02-14 14:14] LABS: BLOOD UREA NITROGEN 17 mg/dl (7-18); BUN/CREATININE RATIO 19.1 (10-20); CALCIUM 8.1 mg/dl (8.5-10.1); CARBON DIOXIDE 21 mmol/L (21-32); CHLORIDE 111 mmol/L (98-107); CREATININE 0.88 mg/dl (0.60-1.20); GLUCOSE 211 mg/dl (70-99); SODIUM 143 mmol/L (136-145)
[2017-02-14 14:55] VITALS: BP 117/73; PULSE 66; TEMP 36.6; O2SAT 95
--- NOTE | 2017-02-14 15:39 | Progress Note ---
Subjective Date of Service: Feb 14, 2017. Problem List Medical Problems: (1) Altered mental status Status: Acute (2) Right rib fracture Status: Acute (3) UTI (urinary tract infection) Status: Acute Objective Vital Signs Date Time Temp Pulse Resp B/P Pulse Ox O2 Delivery O2 Flow Rate FiO2 02/14/17 14:55 36.6 66 18 117/73 95 Room Air 02/14/17 08:50 94 Room Air 02/14/17 08:10 36.8 72 18 134/80 94 Room Air 02/14/17 00:03 Room Air 02/13/17 22:38 36.5 74 16 137/70 96 Room Air 02/13/17 20:45 Room Air 02/13/17 16:31 157/80 02/13/17 16:07 36.5 78 17 167/90 94 Room Air 02/13/17 16:00 95 Room Air Laboratory Results Last 24 Hours Test 02/14/17 07:34 02/14/17 13:22 02/14/17 14:22 White Blood Count 8.74 K/uL Red Blood Count 5.07 M/uL Hemoglobin 16.0 g/dL Hematocrit 45.8 % Mean Corpuscular Volume 90.3 fL Mean Corpuscular Hemoglobin 31.6 pg Mean Corpuscular Hemoglobin Concent 34.9 g/dl Platelet Count 206 K/uL Mean Platelet Volume 9.6 fL Neutrophils (%) (Auto) 78.9 % Lymphocytes (%) (Auto) 12.6 % Monocytes (%) (Auto) 7.4 % Eosinophils (%) (Auto) 0.6 % Basophils (%) (Auto) 0.3 % Neutrophils # (Auto) 6.89 K/uL Lymphocytes # (Auto) 1.10 K/uL Monocytes # (Auto) 0.65 K/uL Eosinophils # (Auto) 0.05 K/uL Basophils # (Auto) 0.03 K/uL RDW Standard Deviation 44.9 fL RDW Coefficient of Variation 13.6 % Immature Granulocyte % (Auto) 0.2 % Immature Granulocyte # (Auto) 0.02 K/uL Sodium Level 143 mmol/L Potassium Level mmol/L 3.6 mmol/L Chloride Level 111 mmol/L Carbon Dioxide Level 21 mmol/L Anion Gap 11.0 mmol/L Blood Urea Nitrogen 17 mg/dl Creatinine 0.88 mg/dl Est Creatinine Clear Calc Drug Dose 43.6 ml/min Estimated GFR () 72.9 Estimated GFR (Non- 62.9 BUN/Creatinine Ratio 19.1 Random Glucose 211 mg/dl Calcium Level 8.1 mg/dl Assessment and Plan This is a 76 yo F with PMHx of 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 INitially thought may have UTI but culture does not support this will have MRI and likely neurology eval to discuss is the is progression of disease or medication affects encephalopathy not uti by culture, will perform MRI and hold Oxybutinin Parkinson's disease:- CT head no acute infarct, no new or acute changes seen, pending mri - Continue Sinemet 50-200 mg five times daily, Neurpro transdermal patch 2mg daily, and Entacpone 200 mg five times daily with Sinemet. neurology consult once MRI resulted Insomnia:Seroquel 25 mg QHS - Hold mirtazapine as pt daughter reports pt experienced visual hallucinations with mirtazapine resolving after stopping med DVT ppx: lovenox sq, teds, scds CODE STATUS: LEVEL I, FULL CODE; as son is POA and this is his wish. Documented By: Antonio Rosas
[2017-02-14] MEDS ORDERED: LORAZEPAM 2 MG/ML 1 ML VIAL IV PRN (15:45)
[2017-02-14] MEDS ORDERED: NURSING VERBAL MED ORDER ONE (16:30)
--- NOTE | 2017-02-14 17:48 | DIAGNOSTIC IMAGING REPORT ---
MRI OF THE BRAIN WITHOUT CONTRAST CLINICAL HISTORY: Persistent delirium. Trauma. COMPARISON STUDY: Head CT dated 02/12/2017, 09/17/2015 FINDINGS: Sagittal T1, axial diffusion, proton density and T2 weighted axial, coronal FLAIR, and axial T1-weighted images were acquired. No intra or extra-axial mass lesions are visualized Axial diffusion-weighted images reveal no evidence of acute or subacute infarction. There is no evidence of ventricular dilatation. Proton density T2-weighted and FLAIR images reveal no significant intraparenchymal signal abnormalities. There is asymmetric CSF along the left convexity, unchanged from the head CT performed in 2014 There are no abnormal flow voids. There is mild hyperostosis involving the left right calvarium IMPRESSION: 1. No acute intracranial findings 2. No evidence of intracranial mass 3. No evidence of acute or subacute infarction Electronically signed by: Patrick Herrera M.D. 02/14/2017 5:46 PM Dictated Date/Time: 02/14/2017 5:43 PM
[2017-02-14] MEDS: CLONAZEPAM 1 MG TAB PO SCH (18:05)
[2017-02-14] MEDS: QUETIAPINE FUMARATE 25 MG TAB PO SCH (18:06)
[2017-02-15 07:52] VITALS: BP 156/84; PULSE 67; TEMP 36.7; O2SAT 97
[2017-02-15] MEDS: ENTACAPONE 200 MG TAB PO SCH ×4 (09:04→21:40)
[2017-02-15] MEDS: ASPIRIN 81 MG ECTAB PO SCH (09:04)
[2017-02-15] MEDS: GABAPENTIN 300 MG CAP PO SCH ×2 (09:05→21:40)
[2017-02-15] MEDS: CARBIDOPA/LEVODOPA 25/100MG TAB PO SCH ×4 (09:06→21:40)
[2017-02-15] MEDS: DOCUSATE SODIUM/SENNA 50/8.6MG TAB PO SCH (09:06)
[2017-02-15] MEDS: RANITIDINE HCL 150 MG TAB PO SCH ×2 (09:07→21:41)
[2017-02-15] MEDS: AMANTADINE HCL 100 MG CAP PO SCH ×2 (09:07→21:41)
[2017-02-15] MEDS: ENOXAPARIN 30 MG/0.3 ML SYR SQ SCH ×2 (09:08→21:47)
[2017-02-15] MEDS: NEUPRO 2 MG/24 HR EXT SCH (09:23)
--- NOTE | 2017-02-15 10:31 | Neurology Consultation ---
Neurology Consultation Date of Consultation: Feb 15, 2017. Attending Physician: Antonio Rosas M.D. Primary Care Physician: Christine Her C.R.N.P. Reason for Consultation: Patient is a 76-year-old, who was asked to see at the request of Dr. Rosas, for neurologic consultation regarding acute mental status change and Parkinson' s disease. History of Present Illness Source: patient, family, caregiver, clinic records, hospital records This patient has had Parkinson's disease for at least 10 years. I can find records back to [address] Escobar who has been seeing her for most of the time she has had Parkinson's to area he last saw her in December 2016. She was having visual hallucinations and mirtazapine was discontinued. This helped or visual hallucinations considerably. According to her [id number], who is present in the room, the patient had been showering, dressing, walking with a walker, and taking care of herself fairly well prior to admission. Prior to admission she was on amantadine 100 mg twice a day, Sinemet 25/100, 14 times a day taken with Comtan 200 mg each time, also 4 times a day. She is on Neupro patch 2 mg a day. She also takes oxybutynin twice a day as well as Seroquel 25 mg at bedtime, clonazepam 2 mg at bedtime, gabapentin 300 mg twice a day. She has a history of lumbar radiculopathy and chronic pain. Her usual Sinemet/ Comtan doses are 6 AM, 10 AM, 2 PM, and 6 PM. Apparently, on February 12, she had the onset of confusion and generalized weakness. She fell once. She arrived at the emergency room at 1044 hours on February 12 with a temperature 36.3, pulse 84 and regular, respiratory rate 20 and comfortable, blood pressure 117/68, and O2 saturation 96%. CT scan of the head was unremarkable. Chest x-ray was unremarkable. She was found to have a urinary tract infection was treated with antibiotics. CBC and chem profile were otherwise unremarkable. An MRI of the brain was obtained and showed no acute stroke. There was some mild old small vessel ischemic changes. Today the patient is very slow and stiff with some generalized feeling of weakness. She has no pain or headache, dizziness, new vision problems, or numbness. She has no significant depression. Past Medical/Surgical History Medical Problems: (1) Altered mental status Status: Acute (2) Right rib fracture Status: Acute (3) UTI (urinary tract infection) Status: Acute Parkinson's disease Lumbar radiculopathy Post appendectomy, cholecystectomy, tubal ligation Family History Father age 76 with competitions of diabetes. Mother age 94 and had heart issues Social History Patient has never smoked cigarettes and only rarely had a drink of alcohol in the past. 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 Smoking Status: Never smoker Smokeless Tobacco Use: No Alcohol Use: none Drug Use: none Marital Status: Housing Status: lives with family Occupation Status: disabled Allergies Coded Allergies: Flu Virus Vaccine (Unverified Allergy, Mild, UNSURE, 02/12/17) Current Inpatient Medications Current Inpatient Medications Medications (Trade) Dose Ordered Sig/Shreyas Route Start Time Stop Time Status Last Admin Dose Admin Enoxaparin Sodium (Lovenox Inj) 30 mg Q12 SQ 02/12/17 21:00 03/14/17 20:59 02/15/17 09:08 30 MG Acetaminophen (Tylenol Tab) 650 mg Q4H PRN PO 02/12/17 13:15 03/14/17 13:14 02/13/17 14:06 650 MG Polyethylene (Miralax Powder Packet) 17 gm DAILY PRN PO 02/12/17 14:00 03/14/17 13:59 Ondansetron HCl (Zofran Inj) 4 mg Q6H PRN IV 02/12/17 13:15 03/14/17 13:14 Amantadine HCl (Symmetrel Cap) 100 mg BID PO 02/12/17 20:00 03/14/17 20:59 02/15/17 09:07 100 MG Aspirin (Ecotrin Tab) 81 mg DAILY PO 02/13/17 08:00 03/15/17 08:59 02/15/17 09:04 81 MG Carbidopa/Levodopa (Sinemet 25/ 100MG Tab) 1 tab QID PO 02/12/17 17:00 03/14/17 16:59 02/15/17 09:06 1 TAB Clonazepam (Klonopin Tab) 2 mg HS PO 02/12/17 21:00 03/14/17 20:59 02/14/17 18:05 2 MG Gabapentin (Neurontin Cap) 300 mg BID PO 02/12/17 20:00 03/14/17 20:59 02/15/17 09:05 300 MG Quetiapine Fumarate (seroQUEL TAB) 25 mg HS PO 02/12/17 21:00 03/14/17 20:59 02/14/17 18:06 25 MG Ranitidine HCl (zANTac TAB) 150 mg BID PO 02/12/17 20:00 03/14/17 20:59 02/15/17 09:07 150 MG Senna/Docusate Sodium 1 tab 1 tab DAILY PO 02/13/17 08:00 03/15/17 07:59 02/15/17 09:06 1 TAB Ceftriaxone Sodium/Dextrose (Rocephin Inj/ Dextrose Add-[place] 50ML) 50 ml @ 100 mls/hr DAILY@1200 IV 02/13/17 12:00 02/22/17 11:59 02/14/17 11:48 100 MLS/HR Entacapone (Comtan) 200 mg QID PO 02/12/17 17:00 03/14/17 16:59 02/15/17 09:04 200 MG Non-Formulary Medication (Non-Formulary Patient'S Own Med) 1 ea DAILY EXT 02/15/17 08:00 03/17/17 07:59 02/15/17 09:23 1 EA Review of Systems Constitutional: + fatigue, + weakness Eyes: No diplopia, No worsening of vision ENT: No tinnitus, No trouble swallowing Respiratory: No cough, No shortness of breath Cardiovascular: No chest pain, No palpitations Abdomen: No nausea, No pain Musculoskeletal: No joint pain, No muscle pain Genitourinary - Female: No dysuria, No urinary incontinence Neurologic: + balance problems, + weakness, No memory loss, No numbness/ tingling, No vertigo Psychiatric: No anxiety, No depression symptoms Endocrine: + fatigue Hematologic / Lymphatic: No abnormal bleeding/bruising Integumentary: No rash Allergic / Immunologic: No hives Physical Exam Vital Signs (Past 24 Hrs): Date Time Temp Pulse Resp B/P Pulse Ox O2 Delivery O2 Flow Rate FiO2 02/15/17 07:52 36.7 67 18 156/84 97 Room Air 02/15/17 00:10 Room Air 02/14/17 16:00 Room Air 02/14/17 14:55 36.6 66 18 117/73 95 Room Air Patient is right-handed. The patient is awake and alert. Speech is very soft and mumbles. She does not have any obvious aphasia. Mentation and thought processes are slow but she tends to be fairly intact without significant dementia present. Mood is reasonable and affect is flat but she has a masklike face with decreased blink rate and considerable generalized bradykinesia. The discs are sharp with positive venous pulsations. There are no exudates, hemorrhages, or blood vessel changes seen. Pupils are 3mm bilaterally and reactive to light. Extraocular eye muscles are intact without nystagmus. Visual acuity and visual gutierrez seem normal grossly to confrontation. There are no deficits to sensation of the face bilaterally. Corneal reflexes are positive bilaterally. Facial strength and symmetry is normal bilaterally. Hearing seems intact grossly to voice and finger rub. Palate moves well without asymmetry. There is normal sternocleidomastoid and trapezius strength bilaterally. Tongue is midline with good strength bilaterally. Neck has a reasonable range of motion without discomfort. There are no cervical bruits. There are no cranial or ocular bruits. Heart is without murmur. Cervical, thoracic, and lumbar spine are nontender to palpation. Gait is narrow based and slow/deliberate. She shuffles with turns and turns en bloc. She has decreased arm swing and some left greater than right resting tremor. With outstretched arms there is no drift. There are no postural or action tremors. She does have mild bilateral resting tremor intermittently. There is no ataxia with [id number] testing. There is decreased facility in the hands. There are no abnormal involuntary movements noted. Motor strength is 5/5 diffusely in the arms bilaterally including deltoids, biceps, brachioradialis, wrist flexors and extensors, leg breaker, and intrinsic hand muscles. Motor strength is 5/5 diffusely in the legs bilaterally including hip flexors, quadriceps, hamstring, gastrocnemius, tibialis anterior, tibialis posterior, and peroneii muscles bilaterally. Toe extensors are normal and there is good bulk in the extensor digitorum brevis muscle bilaterally. The limbs have mild to moderate rigidity in the legs and mild rigidity the arms. Sensory examination is intact to pin and touch throughout all four limbs. Reflexes are 1/4 in the biceps, triceps, brachioradialis, quadriceps, and Achilles tendons bilaterally. Toes are downgoing with plantar stimulation bilaterally. Peripheral pulses are present and of normal quality distally in all four limbs. There is no peripheral edema noted. Laboratory Results Past 24 Hours: 02/14/17 13:22 02/14/17 14:22 Test 02/14/17 13:22 Anion Gap 11.0 mmol/L (3-11) Est Creatinine Clear Calc Drug Dose 43.6 ml/min Estimated GFR () 72.9 Estimated GFR (Non- 62.9 BUN/Creatinine Ratio 19.1 (10-20) Calcium Level 8.1 mg/dl (8.5-10.1) Imaging MRI OF THE BRAIN WITHOUT CONTRAST CLINICAL HISTORY: Persistent delirium. Trauma. COMPARISON STUDY: Head CT dated 02/12/2017, 09/17/2015 FINDINGS: Sagittal T1, axial diffusion, proton density and T2 weighted axial, coronal FLAIR, and axial T1-weighted images were acquired. No intra or extra-axial mass lesions are visualized Axial diffusion-weighted images reveal no evidence of acute or subacute infarction. There is no evidence of ventricular dilatation. Proton density T2-weighted and FLAIR images reveal no significant intraparenchymal signal abnormalities. There is asymmetric CSF along the left convexity, unchanged from the head CT performed in 2014 There are no abnormal flow voids. There is mild hyperostosis involving the left right calvarium IMPRESSION: 1. No acute intracranial findings 2. No evidence of intracranial mass 3. No evidence of acute or subacute infarction Electronically signed by: Patrick Herrera M.D. 02/14/2017 5:46 PM Impression 1. Advanced Parkinson's disease She has significant bradykinesia, [id number]-[id number] rigidity, mild resting tremor , and gait instability. She is on multiple medications. She did have some visual hallucinations which could be due to Parkinson medications but they actually cleared when she stopped mirtazapine recently. 2. Acute encephalopathy. This seems to be largely cleared although I cannot exclude a very mild underlying dementia. She is following commands well and does not appear overly confused. 3. History of depression. She denies significant depression currently. Plan 1. I would recommend increasing carbidopa/levodopa to 1-1/2 tablets 4 times a day 2. Increase Neupro patch to 4 mg daily 3. Increase activity with physical and occupational therapy, as well as speech therapy. Consider inpatient stay at [facility] once medically stable. In addition, she would be an excellent candidate for the "[facility]" outpatient Parkinson's program at [facility]. I spoke with Dr. Rosas regarding this case, including treatment options and differential diagnosis. The patient should follow-up with Dr. Escobar as an outpatient once stable.
[2017-02-15 10:40] VITALS: O2SAT 97
[2017-02-15] MEDS: CEFTRIAXONE SOD INJ 1 GM in DEXTROSE 5% ADD-VANTAGE 50ML 50 ML IV SCH (12:15)
--- NOTE | 2017-02-15 15:34 | Progress Note ---
Subjective Date of Service: Feb 15, 2017. Subjective pt is more alert and oriented today, still not herself according to family Problem List Medical Problems: (1) Altered mental status Status: Acute (2) Right rib fracture Status: Acute (3) UTI (urinary tract infection) Status: Acute Review of Systems Constitutional: No chills, No fever Respiratory: No cough, No sputum Cardiac: No chest pain, No orthopnea Abdomen: No nausea, No pain Neurologic: + balance problems, + memory loss, + weakness Psychiatric: + depression symptoms Objective Vital Signs Date Time Temp Pulse Resp B/P Pulse Ox O2 Delivery O2 Flow Rate FiO2 02/15/17 10:40 97 Room Air 02/15/17 07:52 36.7 67 18 156/84 97 Room Air 02/15/17 00:10 Room Air 02/14/17 16:00 Room Air Physical Exam General Appearance: + mild distress, + thin Eyes: PERRL, EOMI Respiratory/Chest: chest non-tender, lungs clear, normal breath sounds Cardiovascular: regular rate, rhythm, no murmur Abdomen: normal bowel sounds, non tender, soft Extremities: no pedal edema Neurologic/Psychiatric: 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 Documented By: Antonio Rosas
[2017-02-15] MEDS ORDERED: LORAZEPAM 2 MG/ML 1 ML VIAL IV PRN (15:45)
[2017-02-15 16:03] VITALS: BP 120/73; PULSE 67; TEMP 36.9; O2SAT 95
[2017-02-15] MEDS ORDERED: LORAZEPAM INJ 0.5 MG in SYRINGE 0.75 ML IV PRN (16:30)
[2017-02-15] MEDS: CLONAZEPAM 1 MG TAB PO SCH (21:41)
[2017-02-15 22:41] VITALS: BP 145/80; PULSE 65; TEMP 36.6; O2SAT 94
[2017-02-16 07:35] VITALS: BP 159/84; PULSE 65; TEMP 36.6; O2SAT 97
[2017-02-16] MEDS: NEUPRO 2 MG/24 HR EXT SCH (08:08)
[2017-02-16] MEDS: ENTACAPONE 200 MG TAB PO SCH ×4 (08:09→20:09)
[2017-02-16] MEDS: GABAPENTIN 300 MG CAP PO SCH ×2 (08:09→20:09)
[2017-02-16] MEDS: ASPIRIN 81 MG ECTAB PO SCH (08:09)
[2017-02-16] MEDS: DOCUSATE SODIUM/SENNA 50/8.6MG TAB PO SCH (08:10)
[2017-02-16] MEDS: CARBIDOPA/LEVODOPA 25/100MG TAB PO SCH ×4 (08:10→20:09)
[2017-02-16] MEDS: RANITIDINE HCL 150 MG TAB PO SCH ×2 (08:11→20:08)
[2017-02-16] MEDS: AMANTADINE HCL 100 MG CAP PO SCH ×2 (08:11→20:09)
[2017-02-16] MEDS: ENOXAPARIN 30 MG/0.3 ML SYR SQ SCH ×2 (08:12→20:10)
[2017-02-16] MEDS: CEFTRIAXONE SOD INJ 1 GM in DEXTROSE 5% ADD-VANTAGE 50ML 50 ML IV SCH (11:45)
[2017-02-16 15:45] VITALS: BP 117/70; PULSE 64; TEMP 36.4; O2SAT 96
--- NOTE | 2017-02-16 19:44 | Hospitalist Progress Note ---
Hospitalist Progress Note Date of Service Feb 16, 2017. Subjective Pt evaluation today including: conversation w/ patient, conversation w/ family , physical exam, chart review Family feel pt is not at baseline. Less interactive today. Request changing Sinemet back to 1 tab qid. Medications Medications (Trade) Dose Ordered Sig/Shreyas Route Start Time Stop Time Status Last Admin Dose Admin Carbidopa/Levodopa (Sinemet 25/ 100MG Tab) 1 tab QID PO 02/16/17 17:00 03/18/17 16:59 02/16/17 17:37 1 TAB Objective Vital Signs Date Time Temp Pulse Resp B/P Pulse Ox O2 Delivery O2 Flow Rate FiO2 02/16/17 15:45 36.4 64 16 117/70 96 Room Air 02/16/17 15:26 Room Air 02/16/17 08:00 Room Air 02/16/17 07:35 36.6 65 18 159/84 97 Room Air 02/16/17 00:10 Room Air 02/15/17 22:41 36.6 65 18 145/80 94 Room Air Physical Exam General Appearance: WD/WN, no apparent distress, + pertinent finding (non verbal) Eyes: normal inspection Neck: supple Respiratory/Chest: chest non-tender, lungs clear Cardiovascular: regular rate, rhythm, no edema, no murmur Abdomen: normal bowel sounds, non tender, soft Neurologic/Psychiatric: alert Laboratory Results 02/14/17 07:34 Red Blood Count 5.07, Mean Corpuscular Volume 90.3, Mean Corpuscular Hemoglobin 31.6, Mean Corpuscular Hemoglobin Concent 34.9, Mean Platelet Volume 9.6, Neutrophils (%) (Auto) 78.9, Lymphocytes (%) (Auto) 12.6, Monocytes (%) (Auto) 7.4, Eosinophils (%) (Auto) 0.6, Basophils (%) (Auto) 0.3, Neutrophils # (Auto) 6.89, Lymphocytes # (Auto) 1.10, Monocytes # (Auto) 0.65, Eosinophils # (Auto) 0.05, Basophils # (Auto) 0.03 02/14/17 13:22 02/14/17 14:22 Test 02/12/17 10:55 02/12/17 11:00 02/12/17 11:15 02/14/17 07:34 Bedside Glucose 111 mg/dl (70-90) Prothrombin Time 10.9 SECONDS (9.0-12.0) Prothromb Time International Ratio 1.0 (0.9-1.1) Activated Partial Thromboplast Time 29.2 SECONDS (21.0-31.0) Partial Thromboplastin Ratio 1.1 Total Bilirubin 0.8 mg/dl (0.2-1) Direct Bilirubin 0.2 mg/dl (0-0.2) Aspartate Amino Transf (AST/SGOT) 9 U/L (15-37) Alanine Aminotransferase (ALT/SGPT) 9 U/L (12-78) Alkaline Phosphatase 119 U/L (45-117) Troponin I < 0.015 ng/ml (0-0.045) Total Protein 6.8 gm/dl (6.4-8.2) Albumin 4.1 gm/dl (3.4-5.0) Urine Color ORANGE Urine Appearance C (CLEAR) Urine pH (4.5-7.5) Urine Specific [place] (1.000-1.030) Urine Protein NEG (NEG) Urine Glucose (UA) (NEG) Urine Ketones (NEG) Urine Occult Blood (NEG) Urine Nitrite (NEG) Urine Bilirubin (NEG) Urine Urobilinogen (NEG) Urine Leukocyte Esterase (NEG) Urine RBC 10-30 /hpf (0-4) Urine WBC >30 /hpf (0-5) Urine Epithelial Cells 0-5 /lpf (0-5) Urine Bacteria 1+ (NEG) White Blood Count 8.74 K/uL (4.8-10.8) Red Blood Count 5.07 M/uL (4.2-5.4) Hemoglobin 16.0 g/dL (12.0-16.0) Hematocrit 45.8 % (37-47) Mean Corpuscular Volume 90.3 fL (80-100) Mean Corpuscular Hemoglobin 31.6 pg (25-34) Mean Corpuscular Hemoglobin Concent 34.9 g/dl (32-36) Platelet Count 206 K/uL (130-400) Mean Platelet Volume 9.6 fL (7.4-10.4) Neutrophils (%) (Auto) 78.9 % Lymphocytes (%) (Auto) 12.6 % Monocytes (%) (Auto) 7.4 % Eosinophils (%) (Auto) 0.6 % Basophils (%) (Auto) 0.3 % Neutrophils # (Auto) 6.89 K/uL (1.4-6.5) Lymphocytes # (Auto) 1.10 K/uL (1.2-3.4) Monocytes # (Auto) 0.65 K/uL (0.11-0.59) Eosinophils # (Auto) 0.05 K/uL (0-0.5) Basophils # (Auto) 0.03 K/uL (0-0.2) RDW Standard Deviation 44.9 fL (36.4-46.3) RDW Coefficient of Variation 13.6 % (11.5-14.5) Immature Granulocyte % (Auto) 0.2 % Immature Granulocyte # (Auto) 0.02 K/uL (0.00-0.02) Test 02/14/17 13:22 Anion Gap 11.0 mmol/L (3-11) Est Creatinine Clear Calc Drug Dose 43.6 ml/min Estimated GFR () 72.9 Estimated GFR (Non- 62.9 BUN/Creatinine Ratio 19.1 (10-20) Calcium Level 8.1 mg/dl (8.5-10.1) Date/Time Source Procedure Growth Status 02/12/17 11:15 Urine,Catheterized Urine Culture - Final Alpha Strep. Not Enterococcus Complete Assessment and Plan This is a 76 yo F with PMHx of 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 Parkinson's disease:- CT head no acute infarct, no new or acute changes seen, normal mri - Recent increase Sinemet 50-200 mg to 1.5 tabs each dose - will scale back to one tab qid since family feel that this recent increase in dosing could be contributing to her decline on cognitive function., continue Neurpro transdermal patch at 2 mg daily, and contine Entacpone 200 mg, neurology will follow for affect and recommend rehab evaluation Insomnia:stop Seroquel 25 mg per neuroolgy and use benzodiazepine if needed DVT ppx: lovenox sq, teds, scds CODE STATUS: LEVEL I, FULL CODE; as son is POA and this is his wish.
[2017-02-16] MEDS: CLONAZEPAM 1 MG TAB PO SCH (20:09)
[2017-02-16] MEDS ORDERED: NON-FORMULARY MEDICATION EXT SCH (20:45)
[2017-02-16 22:58] VITALS: BP 132/76; PULSE 78; TEMP 36.3; O2SAT 94
[2017-02-17 06:25] LABS: HEMATOCRIT 44.6 % (37-47); MEAN CORPUSCULAR HEMOGLOBIN 30.5 pg (25-34); MEAN CORPUSCULAR HGB CONC 33.2 g/dl (32-36); MEAN PLATELET VOLUME 9.3 fL (7.4-10.4); PLATELET COUNT 218 K/uL (130-400); RED BLOOD COUNT 4.85 M/uL (4.2-5.4); WHITE BLOOD COUNT 7.45 K/uL (4.8-10.8)
[2017-02-17 07:02] LABS: CREATININE 0.62 mg/dl (0.60-1.20)
[2017-02-17 07:21] VITALS: BP 151/72; PULSE 71; TEMP 36.4; O2SAT 96
[2017-02-17] MEDS: ENTACAPONE 200 MG TAB PO SCH ×3 (08:54→17:14)
[2017-02-17] MEDS: ASPIRIN 81 MG ECTAB PO SCH (08:54)
[2017-02-17] MEDS: RANITIDINE HCL 150 MG TAB PO SCH (08:55)
[2017-02-17] MEDS: CARBIDOPA/LEVODOPA 25/100MG TAB PO SCH ×3 (08:55→17:14)
[2017-02-17] MEDS: DOCUSATE SODIUM/SENNA 50/8.6MG TAB PO SCH (08:55)
[2017-02-17] MEDS: AMANTADINE HCL 100 MG CAP PO SCH (08:55)
[2017-02-17] MEDS: GABAPENTIN 300 MG CAP PO SCH (08:55)
[2017-02-17] MEDS: ENOXAPARIN 30 MG/0.3 ML SYR SQ SCH (08:55)
--- NOTE | 2017-02-17 12:35 | Hospitalist Progress Note ---
Hospitalist Progress Note Date of Service Feb 17, 2017. Subjective Pt evaluation today including: conversation w/ patient, physical exam, chart review improved oral intake. Medications Medications (Trade) Dose Ordered Sig/Shreyas Route Start Time Stop Time Status Last Admin Dose Admin Carbidopa/Levodopa (Sinemet 25/ 100MG Tab) 1 tab QID PO 02/16/17 17:00 03/18/17 16:59 02/17/17 08:55 1 TAB Objective Vital Signs Date Time Temp Pulse Resp B/P Pulse Ox O2 Delivery O2 Flow Rate FiO2 02/17/17 11:24 Room Air 02/17/17 07:21 36.4 71 20 151/72 96 Room Air 02/16/17 23:30 Room Air 02/16/17 22:58 36.3 78 18 132/76 94 Room Air 02/16/17 20:15 Room Air 02/16/17 15:45 36.4 64 16 117/70 96 Room Air 02/16/17 15:26 Room Air Physical Exam General Appearance: + pertinent finding (seated in chair, having breakfast) Neck: supple Respiratory/Chest: chest non-tender, lungs clear Cardiovascular: regular rate, rhythm, no murmur Abdomen: normal bowel sounds, non tender, soft Extremities: normal range of motion Neurologic/Psychiatric: alert, normal mood/affect Skin: normal color Laboratory Results Last 24 Hours Test 02/17/17 06:00 White Blood Count 7.45 K/uL Red Blood Count 4.85 M/uL Hemoglobin 14.8 g/dL Hematocrit 44.6 % Mean Corpuscular Volume 92.0 fL Mean Corpuscular Hemoglobin 30.5 pg Mean Corpuscular Hemoglobin Concent 33.2 g/dl RDW Standard Deviation 45.9 fL RDW Coefficient of Variation 13.6 % Platelet Count 218 K/uL Mean Platelet Volume 9.3 fL Creatinine 0.62 mg/dl Est Creatinine Clear Calc Drug Dose 61.9 ml/min Estimated GFR () 100.1 Estimated GFR (Non- 86.4 Assessment and Plan This is a 76 yo F with PMHx of 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 Has received IV Rocephin for 4 days. Will dc tomorrow. Parkinson's disease:- CT head no acute infarct, no new or acute changes seen, normal mri - Recent increase Sinemet 50-200 mg to 1.5 tabs each dose - will scale back to one tab qid since family feel that this recent increase in dosing could be contributing to her decline on cognitive function., continue Neurpro transdermal patch at 2 mg daily, and contine Entacpone 200 mg.Will liase with SW reg. disposition Insomnia:stop Seroquel 25 mg per neuroolgy and use benzodiazepine if needed DVT ppx: lovenox sq, teds, scds CODE STATUS: LEVEL I, FULL CODE; as son is POA and this is his wish.
[2017-02-17] MEDS: CEFTRIAXONE SOD INJ 1 GM in DEXTROSE 5% ADD-VANTAGE 50ML 50 ML IV SCH (13:11)
[2017-02-17 14:47] VITALS: BP 105/68; PULSE 63; TEMP 36.6; O2SAT 97
--- NOTE | 2017-02-17 17:05 | Discharge Instructions ---
Discharge Instructions Date of Service Feb 17, 2017. Admission Reason for Admission: UTI Discharge Discharge Diagnosis / Problem: Parkinson's disease. Discharge Goals Goal(s): Improve function Activity Recommendations Activity Limitations: resume your previous activity Lifting Limitations: gradually increase as tolerated Exercise/Sports Limitations: as tolerated Shower/Bathe: no limitations Driving or Machine Use: . Instructions / Follow-Up Instructions / Follow-Up PCP in one to two weeks Current Hospital Diet Patient's current hospital diet: Regular Diet Discharge Diet Recommended Diet: AHA Diet (Heart Healthy) Pending Studies Studies pending at discharge: no Laboratory Results 02/17/17 06:00 02/14/17 13:22 02/14/17 14:22 02/17/17 06:00 Test 02/12/17 10:55 02/12/17 11:00 02/12/17 11:15 02/14/17 07:34 Bedside Glucose 111 mg/dl (70-90) Prothrombin Time 10.9 SECONDS (9.0-12.0) Prothromb Time International Ratio 1.0 (0.9-1.1) Activated Partial Thromboplast Time 29.2 SECONDS (21.0-31.0) Partial Thromboplastin Ratio 1.1 Total Bilirubin 0.8 mg/dl (0.2-1) Direct Bilirubin 0.2 mg/dl (0-0.2) Aspartate Amino Transf (AST/SGOT) 9 U/L (15-37) Alanine Aminotransferase (ALT/SGPT) 9 U/L (12-78) Alkaline Phosphatase 119 U/L (45-117) Troponin I < 0.015 ng/ml (0-0.045) Total Protein 6.8 gm/dl (6.4-8.2) Albumin 4.1 gm/dl (3.4-5.0) Urine Color ORANGE Urine Appearance C (CLEAR) Urine pH (4.5-7.5) Urine Specific [place] (1.000-1.030) Urine Protein NEG (NEG) Urine Glucose (UA) (NEG) Urine Ketones (NEG) Urine Occult Blood (NEG) Urine Nitrite (NEG) Urine Bilirubin (NEG) Urine Urobilinogen (NEG) Urine Leukocyte Esterase (NEG) Urine RBC 10-30 /hpf (0-4) Urine WBC >30 /hpf (0-5) Urine Epithelial Cells 0-5 /lpf (0-5) Urine Bacteria 1+ (NEG) Immature Granulocyte % (Auto) 0.2 % White Blood Count 8.74 K/uL (4.8-10.8) Red Blood Count 5.07 M/uL (4.2-5.4) Hemoglobin 16.0 g/dL (12.0-16.0) Hematocrit 45.8 % (37-47) Mean Corpuscular Volume 90.3 fL (80-100) Mean Corpuscular Hemoglobin 31.6 pg (25-34) Mean Corpuscular Hemoglobin Concent 34.9 g/dl (32-36) Platelet Count 206 K/uL (130-400) Mean Platelet Volume 9.6 fL (7.4-10.4) Neutrophils (%) (Auto) 78.9 % Lymphocytes (%) (Auto) 12.6 % Monocytes (%) (Auto) 7.4 % Eosinophils (%) (Auto) 0.6 % Basophils (%) (Auto) 0.3 % Neutrophils # (Auto) 6.89 K/uL (1.4-6.5) Lymphocytes # (Auto) 1.10 K/uL (1.2-3.4) Monocytes # (Auto) 0.65 K/uL (0.11-0.59) Eosinophils # (Auto) 0.05 K/uL (0-0.5) Basophils # (Auto) 0.03 K/uL (0-0.2) Immature Granulocyte # (Auto) 0.02 K/uL (0.00-0.02) Test 02/14/17 13:22 02/17/17 06:00 Anion Gap 11.0 mmol/L (3-11) BUN/Creatinine Ratio 19.1 (10-20) Calcium Level 8.1 mg/dl (8.5-10.1) Red Blood Count 4.85 M/uL (4.2-5.4) Mean Corpuscular Volume 92.0 fL (80-100) Mean Corpuscular Hemoglobin 30.5 pg (25-34) Mean Corpuscular Hemoglobin Concent 33.2 g/dl (32-36) RDW Standard Deviation 45.9 fL (36.4-46.3) RDW Coefficient of Variation 13.6 % (11.5-14.5) Mean Platelet Volume 9.3 fL (7.4-10.4) Est Creatinine Clear Calc Drug Dose 61.9 ml/min Estimated GFR () 100.1 Estimated GFR (Non- 86.4 Date/Time Source Procedure Growth Status 02/12/17 11:15 Urine,Catheterized Urine Culture - Final Alpha Strep. Not Enterococcus Complete Medical Emergencies . Who to Call and When: Medical Emergencies: If at any time you feel your situation is an emergency, please call 911 immediately. . Non-Emergent Contact Non-Emergency issues call your: Primary Care Provider . Past History Medical & Surgical History: (1) Parkinson's disease (2) Altered mental status . "Provider Documentation" section prepared by Jarod Gonzalez. . VTE Core Measure Inpt VTE Proph given/why not?: Enoxaparin (Lovenox)LEONARDA, T.E.D. Carly, SCD's
--- NOTE | 2017-02-17 17:13 | Discharge Summary ---
Discharge Summary Date of Service Feb 17, 2017. Discharge Summary Admission Date: Feb 12, 2017 at 13:09 Discharge Date: Feb 17, 2017 Discharge Disposition: Home Principal Diagnosis: Parkinson's disease. Medication Reconciliation Continued Medications: Amantadine Hcl (Symmetrel) 100 Mg Tab 1 TAB PO BID for 30 Days, #30 TAB 1 Refill Aspirin (Aspirin Ec) 81 Mg Tab 81 MG PO DAILY Calcium Carbonate (Calcium 600) 600 Mg Tab Carbidopa/Levodopa (Sinemet 25MG/100MG) Tab 1 TAB PO QID, 0 Refills Clonazepam (Klonopin) 2 Mg Tab 2 MG PO HS, TAB Entacapone (Comtan) 200 Mg Tab 200 MG PO QID, TAB Gabapentin (Neurontin) 300 Mg Cap 300 MG PO BID, CAP PT TAKE ONE TABLET AT 0600 AND ONE TABLET AT 2200 Mirtazapine (Mirtazapine Odt) 30 Mg Tab 30 MG PO HS Oxybutynin Chloride (Ditropan) 5 Mg Tab 1 TAB PO BID for 30 Days, #60 TAB 11 Refills Quetiapine Fumarate (Seroquel) 25 Mg Tab 25 MG PO HS, TAB Ranitidine (Zantac) 150 Mg Tab 1 TAB PO BID for 30 Days, #60 TAB 3 Refills Rotigotine (Neupro) 1 Mg/24 Hr Dis 1 MG TOP Q24H Sennosides-Docusate Sodium (Stool Softener) 1 Tab Tab 1 TAB PO QD Discharge Exam Physical Exam: General Appearance: no apparent distress Eyes: normal inspection Neck: no adenopathy, no JVD Respiratory/Chest: chest non-tender, lungs clear Cardiovascular: regular rate, rhythm, no edema Abdomen / GI: normal bowel sounds, soft, no organomegaly Extremities: normal inspection Neurologic/Psychiatric: alert, + pertinent finding (parkinsonian tremor) Skin: normal color Hospital Course This is a 76 yo F with PMHx of 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 Received IV Rocephin for 5 days. Urine culture were negative. Parkinson's disease:- CT head no acute infarct, no new or acute changes seen, normal mri - Recent increase Sinemet 50-200 mg to 1.5 tabs each dose - will scale back to one tab qid since family feel that this recent increase in dosing could be contributing to her decline on cognitive function., continue Neurpro transdermal patch at 2 mg daily, and contine Entacpone 200 mg. Insomnia:Resolved. DVT ppx: lovenox sq, teds, scds CODE STATUS: LEVEL I, FULL CODE; as son is POA and this is his wish. Total Time Spent: Greater than 30 minutes This includes examination of the patient, discharge planning, medication reconciliation, and communication with other providers. Discharge Instructions Please refer to the electronic Patient Visit Report (Discharge Instructions) for additional information. Follow-Up PCP in one to two weeks
[2017-02-17 17:24] VITALS: BP 105/68; PULSE 63; TEMP 36.6; O2SAT 97
[2017-02-18] MEDS ORDERED: NEUPRO 2 MG/24 HR EXT SCH (08:00)
[2017-09-25] MEDS ORDERED: PIMA17TA PO (13:07)
[2017-09-25] MEDS ORDERED: DIPH1TAB87 PO (13:07)
== END 2017-02-17 18:30 | disposition home or self-care (01) | DRG 689 ==
LOC: ENRESERVDT → CANRESERV → ENRESERVTM → C.EDB 10:41 → C.4E 13:09 → EDBEDREQ 13:41 → C.4E 14:15
PROVIDERS: ADMIT Internal Medicine; ATTEND Internal Medicine
DX: N39.0 Urinary tract infection, site not specified (principal); G93.41 Metabolic encephalopathy; G20 Parkinson's disease; K21.9 Gastro-esophageal reflux disease without esophagitis; G47.00 Insomnia, unspecified; M41.9 Scoliosis, unspecified; M85.80 Other specified disorders of bone density and structure, unspecified site; R30.0 Dysuria; R35.0 Frequency of micturition; Z88.7 Allergy status to serum and vaccine; Z79.82 Long term (current) use of aspirin; Z79.899 Other long term (current) drug therapy; Z90.49 Acquired absence of other specified parts of digestive tract; Z98.51 Tubal ligation status; M54.16 Radiculopathy, lumbar region; Z83.3 Family history of diabetes mellitus; Z82.49 Family history of ischemic heart disease and other diseases of the circulatory system; F32.9 Major depressive disorder, single episode, unspecified

== ENCOUNTER → 2017-05-11 | Outpatient (CLI) | payer OTHER ==
[~2017-05-11] MED LIST changes: +CALC600T; -CALCTAB5 PO; -DTR5 PO; +OXYB5TAB74 PO; +ZNTT/150 PO
[2017-05-11 12:31] LABS: URINE APPEARANCE CLOUDY (CLEAR); URINE COLOR DK YELLOW; URINE EPITHELIAL CELL AUTO >30 /lpf (0-5); URINE NITRITE NEG (NEG); URINE PH 5.5 (4.5-7.5); URINE SPECIFIC GRAVITY 1.026 (1.000-1.030); UROBILINOGEN NEG (NEG)
[2017-05-11 12:42] LABS: MANUAL MICROSCOPIC REQUIRED? NO; REVIEW REQ? YES; URINE BILIRUBIN NEG (NEG)
== END | disposition home or self-care (01) ==
LOC: C.LABBFT 10:24
PROVIDERS: ATTEND Physician Assistant Medical
DX: N39.0 Urinary tract infection, site not specified (principal)

== ENCOUNTER → 2017-09-16 | Outpatient (CLI) | payer OTHER ==
[~2017-09-16] MED LIST changes: +DTR/5 PO; -OXYB5TAB74 PO
[2017-09-16 16:45] LABS: MANUAL MICROSCOPIC REQUIRED? YES; REVIEW REQ? NO; URINE APPEARANCE CLEAR (CLEAR); URINE COLOR ORANGE; URINE SPECIFIC GRAVITY 1.024 (1.000-1.030)
[2017-09-16 16:54] LABS: SULFASALICYLIC ACID NEG (NEG)
[2017-09-16 16:57] LABS: URINE BACTERIA 1+ (NEG); URINE RBC 0-4 /hpf (0-4)
== END | disposition home or self-care (01) ==
LOC: C.LABSPEC 15:41
PROVIDERS: ATTEND Physician Assistant Medical
DX: N39.0 Urinary tract infection, site not specified (principal)

== ENCOUNTER 2018-01-06 20:58 | Inpatient (IN) | payer OTHER ==
[~2018-01-06] VITALS: Ht 162.6 cm; Wt 60.0 kg
[~2018-01-06 20:58] MED LIST changes: -CALC600T; +CALC600T PO; +DIPH1TAB87 PO; -MIRT30TA5 PO; +PIMA17TA PO; -ZNTT/150 PO
[2018-01-06 21:23] LABS: BASO % 0.3 %; BASO ABS # 0.02 K/uL (0-0.2); EOS % 1.6 %; EOS ABS # 0.12 K/uL (0-0.5); HEMOGLOBIN 15.1 g/dL (12.0-16.0); IG# 0.01 K/uL (0.00-0.02); LYMPH % 13.5 %; LYMPH ABS # 1.01 K/uL (1.2-3.4); MEAN CELL VOLUME 88.1 fL (80-100); MEAN CORPUSCULAR HEMOGLOBIN 30.9 pg (25-34); MEAN CORPUSCULAR HGB CONC 35.1 g/dl (32-36); MEAN PLATELET VOLUME 9.6 fL (7.4-10.4); MONO % 8.7 %; MONO ABS # 0.65 K/uL (0.11-0.59); NEUT % 75.8 %; NEUT ABS # 5.68 K/uL (1.4-6.5); PLATELET COUNT 220 K/uL (130-400); RED CELL DISTRIBUTION WIDTH CV 13.8 % (11.5-14.5); RED CELL DISTRIBUTION WIDTH SD 44.4 fL (36.4-46.3); WHITE BLOOD COUNT 7.49 K/uL (4.8-10.8)
[2018-01-06 21:41] LABS: ALT/SGPT 8 U/L (12-78); BLOOD UREA NITROGEN 26 mg/dl (7-18); CALCIUM 8.8 mg/dl (8.5-10.1); CARBON DIOXIDE 23 mmol/L (21-32); CREATININE 0.86 mg/dl (0.60-1.20); GLUCOSE 97 mg/dl (70-99); POTASSIUM 4.1 mmol/L (3.5-5.1); SODIUM 141 mmol/L (136-145)
--- NOTE | 2018-01-06 21:41 | DIAGNOSTIC IMAGING REPORT ---
CT SCAN OF THE BRAIN WITHOUT IV CONTRAST CLINICAL HISTORY: Change in mental status. COMPARISON STUDY: CT of the brain dated 02/12/2017. TECHNIQUE: Unenhanced axial CT scan of the brain is performed from the vertex to the skull base. A dose lowering technique was utilized adhering to the principles of ALARA. CT DOSE: 537.48 mGy.cm FINDINGS: Brain parenchyma: There are age-related involutional changes noting minimal subcortical and periventricular microangiopathic change. There is no hemorrhage, mass effect, or evidence of acute territorial ischemia by CT criteria. Graves-white matter is preserved. No extra-axial fluid collection is seen. Ventricles, sulci, cisterns: Prominent secondary to involutional change. Intracranial vasculature: There is minimal atherosclerotic calcification of the cavernous carotid arteries. Calvarium: Unremarkable. Sinuses and mastoids: The visualized paranasal sinuses are clear. The mastoid air cells are well pneumatized. Orbits: The bony orbits are grossly intact. There are bilateral ocular lens implants. IMPRESSION: There is no hemorrhage, mass effect, or evidence of acute territorial ischemia by CT criteria. Electronically signed by: Jam Siu M.D. 01/06/2018 9:39 PM Dictated Date/Time: 01/06/2018 9:38 PM
[2018-01-06 21:46] LABS: ALKALINE PHOSPHATASE 92 U/L (45-117); AST/SGOT 13 U/L (15-37); PTT PATIENT 27.1 SECONDS (21.0-31.0); TOTAL PROTEIN 7.1 gm/dl (6.4-8.2)
--- NOTE | 2018-01-06 21:53 | DIAGNOSTIC IMAGING REPORT ---
SINGLE VIEW CHEST CLINICAL HISTORY: Change in mental status. FINDINGS: An AP, portable, upright chest radiograph is compared to study dated 09/25/2017. The examination is degraded by portable technique and patient rotation. The heart is mildly enlarged and there is atherosclerotic calcification of the thoracic aorta. The pulmonary vasculature is noncongested. Chronic interstitial thickening and mild elevation of right hemidiaphragm are similar to previous. No airspace consolidation or large pleural effusion is identified. No pneumothorax is seen. The skeletal structures are osteopenic. Degenerative change and scoliosis are noted in the thoracic spine. IMPRESSION: No acute cardiopulmonary abnormality. Electronically signed by: Jam Siu M.D. 01/06/2018 9:52 PM Dictated Date/Time: 01/06/2018 9:51 PM
[2018-01-06] MEDS ORDERED: ALUMINUM/MAGNESIUM/SIMETH (MAALOX MAX) 30 ML UDC PO PRN (23:30)
[2018-01-06] MEDS ORDERED: ACETAMINOPHEN 325 MG TAB PO PRN (23:30)
[2018-01-06] MEDS ORDERED: ONDANSETRON INJ 2 MG/ML 2 ML VIAL IV PRN (23:30)
[2018-01-06] MEDS ORDERED: PHARMACIST DISCHARGE MED REC CONSULT PRN (23:30)
--- NOTE | 2018-01-06 23:30 | History and Physical ---
History & Physical Date & Time of Service: Jan 06, 2018 at 23:28 Chief Complaint: Neuro Symptoms Primary Care Physician: Christine Her C.R.NPerry History of Present Illness Source: patient 77-year-old female with a past medical history of Parkinson's disease presents to the ER with complaints of strokelike symptoms started around 8 PM. Per the patient's family, the patient had taken a nap at 3 PM and woke up around 730 and was found to be confused, nonverbal and had right-sided facial droop. He also noticed she did not have a lot of tremor which he has at baseline. At baseline , the patient is verbal and walks with help of a walker. Currently, she has difficulty with speech but denies any issues with vision, sensation or motor weakness. Denies any chest pain, headaches, palpitations. Right-sided facial droop is now resolved. Denies any past medical history of hypertension or diabetes or stroke Past Medical/Surgical History Parkinson's Family History Patient reports no known family medical history. Social History Smoking Status: Never Smoker Drug Use: none Marital Status: Housing status: lives with family Occupational Status: disabled Allergies Coded Allergies: Flu Virus Vaccine (Unverified Allergy, Mild, UNSURE, 09/25/17) Home Medications Scheduled Amantadine Hcl (Symmetrel), 1 TAB PO Q12 Aspirin (Aspirin Ec), 81 MG PO 0600 Carbidopa/Levodopa (Sinemet 25MG/100MG), 1 TAB PO QID Clonazepam (Klonopin), 2 MG PO HS Diphenhydramine Hcl (Benadryl Allergy), 50 MG PO HS Entacapone (Comtan), 200 MG PO QID Gabapentin (Neurontin), 300 MG PO BID Oxybutynin Chloride (Ditropan), 1 TAB PO TID Pimavanserin Tartrate (Nuplazid), 17 MG PO BID Quetiapine Fumarate (Seroquel), 50 MG PO HS Rotigotine (Neupro), 1 MG TOP DAILY Sennosides-Docusate Sodium (Stool Softener), 2 TAB PO 1000 Review of Systems Constitutional: No fever, No chills Eyes: No worsening of vision, No diplopia ENT: No hearing loss, No unusual epistaxis Respiratory: No cough, No sputum, No shortness of breath Cardiovascular: No chest pain, No palpitations Abdomen: No pain, No nausea, No vomiting Musculoskeletal: No joint pain Genitourinary - Female: No dysuria Neurologic: + balance problems (Right sided facial droop now resolved, dysarthria), No memory loss, No paralysis, No weakness Psychiatric: No depression symptoms Endocrine: No fatigue, No excessive thirst Hematologic / Lymphatic: No abnormal bleeding/bruising Allergic / Immunologic: No environmental allergies Physical Exam Vital Signs Date Time Temp Pulse Resp B/P (MAP) Pulse Ox O2 Delivery O2 Flow Rate FiO2 01/06/18 23:03 65 18 105/83 97 Room Air 01/06/18 22:31 112/73 01/06/18 22:28 68 20 98 Room Air 01/06/18 22:16 130/68 01/06/18 22:01 159/75 01/06/18 21:58 73 20 97 Room Air 01/06/18 21:46 160/78 01/06/18 21:39 179/95 01/06/18 21:29 175/85 01/06/18 21:28 75 20 97 Room Air 01/06/18 21:27 96 Room Air 01/06/18 21:16 80 01/06/18 21:06 37.0 77 16 186/86 97 Room Air 01/06/18 21:02 186/86 General Appearance: WD/WN Head: normocephalic Eyes: normal inspection ENT: hearing grossly normal Neck: supple Respiratory/Chest: lungs clear, normal breath sounds, no respiratory distress Cardiovascular: regular rate, rhythm Abdomen/GI: normal bowel sounds, non tender, soft Extremities/Musculoskelatal: no calf tenderness, no pedal edema Neurologic/Psych: no motor/sensory deficits, alert, normal mood/affect, oriented x 3 Diagnostics Laboratory Results Results Past 24 Hours Test 01/06/18 21:00 01/06/18 21:05 01/06/18 21:15 Range/Units White Blood Count 7.49 4.8-10.8 K/uL Red Blood Count 4.88 4.2-5.4 M/uL Hemoglobin 15.1 12.0-16.0 g/dL Hematocrit 43.0 37-47 % Mean Corpuscular Volume 88.1 80-100 fL Mean Corpuscular Hemoglobin 30.9 25-34 pg Mean Corpuscular Hemoglobin Concent 35.1 32-36 g/dl Platelet Count 220 130-400 K/uL Mean Platelet Volume 9.6 7.4-10.4 fL Neutrophils (%) (Auto) 75.8 % Lymphocytes (%) (Auto) 13.5 % Monocytes (%) (Auto) 8.7 % Eosinophils (%) (Auto) 1.6 % Basophils (%) (Auto) 0.3 % Neutrophils # (Auto) 5.68 1.4-6.5 K/uL Lymphocytes # (Auto) 1.01 1.2-3.4 K/uL Monocytes # (Auto) 0.65 0.11-0.59 K/uL Eosinophils # (Auto) 0.12 0-0.5 K/uL Basophils # (Auto) 0.02 0-0.2 K/uL RDW Standard Deviation 44.4 36.4-46.3 fL RDW Coefficient of Variation 13.8 11.5-14.5 % Immature Granulocyte % (Auto) 0.1 % Immature Granulocyte # (Auto) 0.01 0.00-0.02 K/uL Prothrombin Time 10.9 9.0-12.0 SECONDS Prothromb Time International Ratio 1.0 0.9-1.1 Activated Partial Thromboplast Time 27.1 21.0-31.0 SECONDS Partial Thromboplastin Ratio 1.0 Sodium Level 141 136-145 mmol/L Potassium Level 4.1 3.5-5.1 mmol/L Chloride Level 110 98-107 mmol/L Carbon Dioxide Level 23 21-32 mmol/L Anion Gap 8.0 3-11 mmol/L Blood Urea Nitrogen 26 7-18 mg/dl Creatinine 0.86 0.60-1.20 mg/dl Est Creatinine Clear Calc Drug Dose 43.9 ml/min Estimated GFR () 74.5 Estimated GFR (Non- 64.3 BUN/Creatinine Ratio 30.0 10-20 Random Glucose 97 70-99 mg/dl Calcium Level 8.8 8.5-10.1 mg/dl Total Bilirubin 0.6 0.2-1 mg/dl Direct Bilirubin 0.1 0-0.2 mg/dl Aspartate Amino Transf (AST/SGOT) 13 15-37 U/L Alanine Aminotransferase (ALT/SGPT) 8 12-78 U/L Alkaline Phosphatase 92 45-117 U/L Troponin I < 0.015 0-0.045 ng/ml Total Protein 7.1 6.4-8.2 gm/dl Albumin 4.0 3.4-5.0 gm/dl Bedside Prothrombin Time INR 1.1 0.9-1.1 Urine Color DK YELLOW Urine Appearance CLEAR CLEAR Urine pH 5.0 4.5-7.5 Urine Specific [place] 1.028 1.000-1.030 Urine Protein NEG NEG Urine Glucose (UA) NEG NEG Urine Ketones 1+ NEG Urine Occult Blood NEG NEG Urine Nitrite NEG NEG Urine Bilirubin NEG NEG Urine Urobilinogen NEG NEG Urine Leukocyte Esterase TRACE NEG Urine WBC (Auto) 1-5 0-5 /hpf Urine RBC (Auto) 5-10 0-4 /hpf Urine Hyaline Casts (Auto) 1-5 0-5 /lpf Urine Epithelial Cells (Auto) >30 0-5 /lpf Urine Bacteria (Auto) 1+ NEG Urine Renal Epithelial Cells 0-5 /lpf Urine Crystals CALCIUM OXALATE NONE PRSENT Urine Mucus PRESENT NONE PRSENT Microbiology Results 01/06/18 Urine Culture, Received Pending Diagnostic Radiology CT SCAN OF THE BRAIN WITHOUT IV CONTRAST CLINICAL HISTORY: Change in mental status. COMPARISON STUDY: CT of the brain dated 02/12/2017. TECHNIQUE: Unenhanced axial CT scan of the brain is performed from the vertex to the skull base. A dose lowering technique was utilized adhering to the principles of ALARA. CT DOSE: 537.48 mGy.cm FINDINGS: Brain parenchyma: There are age-related involutional changes noting minimal subcortical and periventricular microangiopathic change. There is no hemorrhage, mass effect, or evidence of acute territorial ischemia by CT criteria. Graves-white matter is preserved. No extra-axial fluid collection is seen. Ventricles, sulci, cisterns: Prominent secondary to involutional change. Intracranial vasculature: There is minimal atherosclerotic calcification of the cavernous carotid arteries. Calvarium: Unremarkable. Sinuses and mastoids: The visualized paranasal sinuses are clear. The mastoid air cells are well pneumatized. Orbits: The bony orbits are grossly intact. There are bilateral ocular lens implants. IMPRESSION: There is no hemorrhage, mass effect, or evidence of acute territorial ischemia by CT criteria. Electronically signed by: Jam Siu M.D. 01/06/2018 9:39 PM Dictated Date/Time: 01/06/2018 9:38 PM [~ rep ct add3]] SINGLE VIEW CHEST CLINICAL HISTORY: Change in mental status. FINDINGS: An AP, portable, upright chest radiograph is compared to study dated 09/25/2017. The examination is degraded by portable technique and patient rotation. The heart is mildly enlarged and there is atherosclerotic calcification of the thoracic aorta. The pulmonary vasculature is noncongested. Chronic interstitial thickening and mild elevation of right hemidiaphragm are similar to previous. No airspace consolidation or large pleural effusion is identified. No pneumothorax is seen. The skeletal structures are osteopenic. Degenerative change and scoliosis are noted in the thoracic spine. IMPRESSION: No acute cardiopulmonary abnormality. Electronically signed by: Jam Siu M.D. 01/06/2018 9:52 PM Dictated Date/Time: 01/06/2018 9:51 PM Impression Assessment and Plan 77-year-old female with a past medical history of Parkinson's disease presents to the ER with complaints of strokelike symptoms started around 8 PM. Per the patient's family, the patient had taken a nap at 3 PM and woke up around 730 and was found to be confused, nonverbal and had right-sided facial droop. -Patient presented with right-sided facial droop, confusion and dysarthria, right-sided facial droop appears to have resolved and she is alert and oriented but still appears to have dysarthria. Transient ischemic attack: -Initial head CT negative for intracranial bleed -MRI brain, MRA head and neck ordered -Lipid panel and hemoglobin A1c ordered -Continue aspirin 81 mg -Lipitor 40 mg daily started -Echo ordered -Neurology consult Parkinson's disease-stable -Continue home medications DVT prophylaxis: SCDs Full code Disposition: Admitted to telemetryResident Physician Supervision Note: Pt evaluated independently - family at bedside. I discussed the case with the resident and agree with the findings and plan as documented in the note. Any exceptions or clarifications are listed here: 77 y/o F Hx Parkinson presented following acute onset of R facial droop and aphasia. She is ataxic at baseline with speech difficulty although, per family , her speech had returned to baseline. OE AAO x 2 S1,2 R CTAB NT, ND No CCE Neuro: Pt answers questions appropriately - may have some difficulty initiating speech at baseline, no facial asymmetry, no pronator drift present, strength is maintained in upper and lower extrems. Chronic tremor and titubation are present P: Pt assigned to telemetry with CVA protocol Results of MRI/MRA pending - she apparently could not tolerate the exam to complete imaging so if results are nondiagnostic, would consider a CTA AM She takes daily ASA and will therefore be placed on Plavix and a Statin Will continue Parkinson reg as prescribed - neuro consult is pending BP is elevated - she denies a history of HTN - her pressure should likely be treated upon DC - would advise on a cuff and home measurements to determine if long-term treatment is merited Resuscitation Status VTE Prophylaxis Will order VTE Prophylaxis: Yes Resident Tracking Resident Involvement: Resident Care Provided Care Provided: Adult Hospital Medicine
[2018-01-07] MEDS ORDERED: LORAZEPAM 2 MG/ML 1 ML VIAL IV STA (00:10)
[2018-01-07 01:45] VITALS: BP 174/77; PULSE 72; TEMP 36.5; O2SAT 96
--- NOTE | 2018-01-07 01:45 | EMERGENCY ROOM VISIT NOTE ---
History Report prepared by Logan: Bobby Parisi Under the Supervision of: Dr. Washington Canchola D.O. First contact with patient: 20:46 Chief Complaint: NEURO SYMPTOMS Stated Complaint: NEURO SYMPTOMS History of Present Illness The patient is a 77 year old female who presents to the Emergency Room with complaints of constant neuro symptoms starting around 2000 tonight. Per the nursing staff, the patient went to bed at 1500, and then she woke up around 2000 and was non-verbal. The patient walks and talks at her baseline. She has a history of Parkinson's. Per the patient's son, the patient is usually awake, alert, and walking around and talking. She usually feeds herself and takes care of herself. The patient went to take a nap on the couch around 1500, and when she woke up she was non-verbal, walking around confused, and he noticed a facial droop. The patient is a full code. History limited due to patient's mentation. Source of History: family, nursing staff Onset: 1999 Position: other (global) Quality: other (neuro symptoms) Timing: constant Note: Associated symptoms: Non-verbal, confused, facial droop Review of Systems See HPI for pertinent positives & negatives. A total of 10 systems reviewed and were otherwise negative. Past Medical & Surgical Medical Problems: (1) Constipation (2) Dysarthria (3) Parkinson's disease (4) TIA (transient ischemic attack) Surgical Problems: (1) Hx of appendectomy (2) Hx of cholecystectomy Family History Patient reports no known family medical history. Social History Smoking Status: Never Smoker Alcohol Use: none Drug Use: none Marital Status: Housing Status: lives with family Occupation Status: disabled Current/Historical Medications Scheduled Amantadine Hcl (Symmetrel), 1 TAB PO Q12 Aspirin (Aspirin Ec), 81 MG PO 0600 Carbidopa/Levodopa (Sinemet 25MG/100MG), 1 TAB PO QID Clonazepam (Klonopin), 2 MG PO HS Diphenhydramine Hcl (Benadryl Allergy), 50 MG PO HS Entacapone (Comtan), 200 MG PO QID Gabapentin (Neurontin), 300 MG PO BID Oxybutynin Chloride (Ditropan), 1 TAB PO TID Pimavanserin Tartrate (Nuplazid), 17 MG PO BID Quetiapine Fumarate (Seroquel), 50 MG PO HS Rotigotine (Neupro), 1 MG TOP DAILY Sennosides-Docusate Sodium (Stool Softener), 2 TAB PO 1000 Allergies Coded Allergies: Flu Virus Vaccine (Unverified Allergy, Mild, UNSURE, 09/25/17) Physical Exam Vital Signs Date Time Temp Pulse Resp B/P (MAP) Pulse Ox O2 Delivery O2 Flow Rate FiO2 01/06/18 23:03 65 18 105/83 97 Room Air 01/06/18 22:31 112/73 01/06/18 22:28 68 20 98 Room Air 01/06/18 22:16 130/68 01/06/18 22:01 159/75 01/06/18 21:58 73 20 97 Room Air 01/06/18 21:46 160/78 01/06/18 21:39 179/95 01/06/18 21:29 175/85 01/06/18 21:28 75 20 97 Room Air 01/06/18 21:27 96 Room Air 01/06/18 21:16 80 01/06/18 21:06 37.0 77 16 186/86 97 Room Air 01/06/18 21:02 186/86 Physical Exam GENERAL: Sitting up in bed, eyes open, attempting to mumble EYE EXAM: normal conjunctiva. PERRL and EOM's grossly intact. OROPHARYNX: no exudate, no erythema, lips, buccal mucosa, and tongue normal and mucous membranes are dry NECK: supple, no nuchal rigidity, no adenopathy, non-tender LUNGS: Clear to auscultation. Normal chest wall mechanics HEART: no murmurs, S1 normal and S2 normal ABDOMEN: abdomen soft, non-tender, normo-active bowel sounds, no masses, no rebound or guarding. BACK: Back is symmetrical on inspection and there is no deformity, no midline tenderness, no CVA tenderness. SKIN: no rashes and no bruising UPPER EXTREMITIES: upper extremities are grossly normal. LOWER EXTREMITIES: No pitting edema. NEURO EXAM: Eyes are open. Nonverbal but attempting to mumble. eyes move around. Wiggles bilateral fingers and toes slightly to commands. Able to move head up and down. Medical Decision & Procedures ER Provider Diagnostic Interpretation: Radiology results as stated below per my review and the radiologist's interpretation: CT SCAN OF THE BRAIN WITHOUT IV CONTRAST CLINICAL HISTORY: Change in mental status. COMPARISON STUDY: CT of the brain dated 02/12/2017. TECHNIQUE: Unenhanced axial CT scan of the brain is performed from the vertex to the skull base. A dose lowering technique was utilized adhering to the principles of ALARA. CT DOSE: 537.48 mGy.cm FINDINGS: Brain parenchyma: There are age-related involutional changes noting minimal subcortical and periventricular microangiopathic change. There is no hemorrhage, mass effect, or evidence of acute territorial ischemia by CT criteria. Graves-white matter is preserved. No extra-axial fluid collection is seen. Ventricles, sulci, cisterns: Prominent secondary to involutional change. Intracranial vasculature: There is minimal atherosclerotic calcification of the cavernous carotid arteries. Calvarium: Unremarkable. Sinuses and mastoids: The visualized paranasal sinuses are clear. The mastoid air cells are well pneumatized. Orbits: The bony orbits are grossly intact. There are bilateral ocular lens implants. IMPRESSION: There is no hemorrhage, mass effect, or evidence of acute territorial ischemia by CT criteria. Electronically signed by: Jam Siu M.D. 01/06/2018 9:39 PM Dictated Date/Time: 01/06/2018 9:38 PM SINGLE VIEW CHEST CLINICAL HISTORY: Change in mental status. FINDINGS: An AP, portable, upright chest radiograph is compared to study dated 09/25/2017. The examination is degraded by portable technique and patient rotation. The heart is mildly enlarged and there is atherosclerotic calcification of the thoracic aorta. The pulmonary vasculature is noncongested. Chronic interstitial thickening and mild elevation of right hemidiaphragm are similar to previous. No airspace consolidation or large pleural effusion is identified. No pneumothorax is seen. The skeletal structures are osteopenic. Degenerative change and scoliosis are noted in the thoracic spine. IMPRESSION: No acute cardiopulmonary abnormality. Electronically signed by: Jam Siu M.D. 01/06/2018 9:52 PM Dictated Date/Time: 01/06/2018 9:51 PM Laboratory Results 01/06/18 21:00 Red Blood Count 4.88, Mean Corpuscular Volume 88.1, Mean Corpuscular Hemoglobin 30.9, Mean Corpuscular Hemoglobin Concent 35.1, Mean Platelet Volume 9.6, Neutrophils (%) (Auto) 75.8, Lymphocytes (%) (Auto) 13.5, Monocytes (%) (Auto) 8.7, Eosinophils (%) (Auto) 1.6, Basophils (%) (Auto) 0.3, Neutrophils # (Auto) 5.68, Lymphocytes # (Auto) 1.01, Monocytes # (Auto) 0.65, Eosinophils # (Auto) 0.12, Basophils # (Auto) 0.02 01/06/18 21:00 Test 01/06/18 21:00 01/06/18 21:05 01/06/18 21:15 White Blood Count 7.49 K/uL (4.8-10.8) Red Blood Count 4.88 M/uL (4.2-5.4) Hemoglobin 15.1 g/dL (12.0-16.0) Hematocrit 43.0 % (37-47) Mean Corpuscular Volume 88.1 fL (80-100) Mean Corpuscular Hemoglobin 30.9 pg (25-34) Mean Corpuscular Hemoglobin Concent 35.1 g/dl (32-36) Platelet Count 220 K/uL (130-400) Mean Platelet Volume 9.6 fL (7.4-10.4) Neutrophils (%) (Auto) 75.8 % Lymphocytes (%) (Auto) 13.5 % Monocytes (%) (Auto) 8.7 % Eosinophils (%) (Auto) 1.6 % Basophils (%) (Auto) 0.3 % Neutrophils # (Auto) 5.68 K/uL (1.4-6.5) Lymphocytes # (Auto) 1.01 K/uL (1.2-3.4) Monocytes # (Auto) 0.65 K/uL (0.11-0.59) Eosinophils # (Auto) 0.12 K/uL (0-0.5) Basophils # (Auto) 0.02 K/uL (0-0.2) RDW Standard Deviation 44.4 fL (36.4-46.3) RDW Coefficient of Variation 13.8 % (11.5-14.5) Immature Granulocyte % (Auto) 0.1 % Immature Granulocyte # (Auto) 0.01 K/uL (0.00-0.02) Prothrombin Time 10.9 SECONDS (9.0-12.0) Prothromb Time International Ratio 1.0 (0.9-1.1) Activated Partial Thromboplast Time 27.1 SECONDS (21.0-31.0) Partial Thromboplastin Ratio 1.0 Anion Gap 8.0 mmol/L (3-11) Est Creatinine Clear Calc Drug Dose 43.9 ml/min Estimated GFR () 74.5 Estimated GFR (Non- 64.3 BUN/Creatinine Ratio 30.0 (10-20) Calcium Level 8.8 mg/dl (8.5-10.1) Total Bilirubin 0.6 mg/dl (0.2-1) Direct Bilirubin 0.1 mg/dl (0-0.2) Aspartate Amino Transf (AST/SGOT) 13 U/L (15-37) Alanine Aminotransferase (ALT/SGPT) 8 U/L (12-78) Alkaline Phosphatase 92 U/L (45-117) Troponin I < 0.015 ng/ml (0-0.045) Total Protein 7.1 gm/dl (6.4-8.2) Albumin 4.0 gm/dl (3.4-5.0) Bedside Prothrombin Time INR 1.1 (0.9-1.1) Bedside Glucose 118 mg/dl (70-90) Urine Color DK YELLOW Urine Appearance CLEAR (CLEAR) Urine pH 5.0 (4.5-7.5) Urine Specific [place] 1.028 (1.000-1.030) Urine Protein NEG (NEG) Urine Glucose (UA) NEG (NEG) Urine Ketones 1+ (NEG) Urine Occult Blood NEG (NEG) Urine Nitrite NEG (NEG) Urine Bilirubin NEG (NEG) Urine Urobilinogen NEG (NEG) Urine Leukocyte Esterase TRACE (NEG) Urine WBC (Auto) 1-5 /hpf (0-5) Urine RBC (Auto) 5-10 /hpf (0-4) Urine Hyaline Casts (Auto) 1-5 /lpf (0-5) Urine Epithelial Cells (Auto) >30 /lpf (0-5) Urine Bacteria (Auto) 1+ (NEG) Urine Renal Epithelial Cells /lpf (0-5) Urine Crystals CALCIUM OXALATE (NONE Urine Mucus PRESENT (NONE PRSENT) Laboratory results per my review. Medications Administered ED Course ED COURSE: Vital signs were reviewed and showed hypertension The patients medical record was reviewed The above diagnostic studies were performed and reviewed. ED treatments and interventions as stated above. 2056: The patient was evaluated in room A1. A complete history and physical examination was performed. 2213: Upon reevaluation, the patient is stable.I discussed my findings with the patient's family and they understand and agree with the treatment plan. Based on the patients age, coexisting illnesses, exam and lab findings the decision to treat as an inpatient was made. The patient remained stable while under my care. The patient will be evaluated for further management. 2217: I reviewed the patient's case with Dr Valentin LYNN Hospitalist. He will evaluate the patient for further management. Medical Decision Differential diagnoses includes but is not limited to toxic, metabolic, infectious, traumatic, cardiac, neurologic, hematologic, psychiatric and inflammatory etiologies. Patient is a 77-year-old female who presents the ER for altered mental status. She took a nap around 3 PM and then when she woke up she was completely altered. She was unable to talk. She was staring off. She was walking at that time. This has never happened before. Her neurologic exam is extremely difficult and she does not follow commands. CBC along with BMP, LFTs, bilirubin and troponin were negative. INR was unremarkable. UA was contaminated with multiple epithelial cells. CT head showed no acute pathology. Chest x-ray is unremarkable as well. Family was updated at bedside. She was out of the stroke window as when she presented this is greater than 7 hours out. Patient was given some fluids. She was admitted to internal medicine for altered mental status without a clear cause. Medication Reconcilliation Current Medication List: was personally reviewed by me Blood Pressure Screening Patient's blood pressure: Elevated blood pressure Monitored by the hospitalist. Consults Time Called: 2213 Consulting Physician: Dr. Valentin LYNN Hospitalist Returned Call: [phone] I reviewed the patient's case with Dr. Valentin Richist. He will evaluate the patient for further management. Impression Primary Impression: Altered mental status Scribe Attestation The scribe's documentation has been prepared under my direction and personally reviewed by me in its entirety. I confirm that the note above accurately reflects all work, treatment, procedures, and medical decision making performed by me. Departure Information Dispostion Being Evaluated By Hospitalist Referrals Christine Her, C.R.N.P. (PCP) Patient Instructions My [facility] Problem Qualifiers Primary Impression: Altered mental status Altered mental status type: unspecified Qualified Codes: R41.82 - Altered mental status, unspecified
[2018-01-07 02:13] VITALS: BP 174/77; PULSE 72; TEMP 36.5; O2SAT 96; Ht 162.6 cm; Wt 60.0 kg
[2018-01-07] MEDS ORDERED: CLOPIDOGREL BISULFATE 75 MG TAB PO ONE (03:45)
[2018-01-07] MEDS ORDERED: CLONAZEPAM 1 MG TAB PO ONE (05:30)
[2018-01-07] MEDS ORDERED: QUETIAPINE FUMARATE 25 MG TAB PO ONE (05:30)
[2018-01-07] MEDS ORDERED: NURSING VERBAL MED ORDER ONE (05:30)
[2018-01-07] MEDS ORDERED: ASPIRIN 81 MG ECTAB PO SCH (06:00)
[2018-01-07] MEDS: GABAPENTIN 300 MG CAP PO SCH ×2 (06:00→20:46)
[2018-01-07] MEDS: OXYBUTYNIN CHLORIDE 5 MG TAB PO SCH ×3 (06:00→18:38)
[2018-01-07] MEDS: HEPARIN SOD 5000 UNIT/0.5 ML CARP SQ SCH ×3 (06:00→20:56)
[2018-01-07] MEDS: ENTACAPONE 200 MG TAB PO SCH ×4 (06:00→18:39)
[2018-01-07] MEDS ORDERED: CARBIDOPA/LEVODOPA 25/100MG TAB PO SCH ×2 (06:00→09:00)
[2018-01-07] MEDS ORDERED: LORAZEPAM INJ 0.5 MG in SYRINGE 0.75 ML IV ONE (06:15)
[2018-01-07 06:46] LABS: HEMOGLOBIN A1C 5.2 % (4.5-5.6)
[2018-01-07 07:18] VITALS: BP 143/51; PULSE 74; O2SAT 94
--- NOTE | 2018-01-07 07:24 | DIAGNOSTIC IMAGING REPORT ---
MRA OF THE INTRACRANIAL CIRCULATION WITHOUT CONTRAST CLINICAL HISTORY: Stroke-like symptoms. Weakness. Facial droop. COMPARISON STUDY: Head CT January 06, 2018. TECHNIQUE: Utilizing a 1.5 Michelle magnet and 3-D [id number] technique, unenhanced MRA of the intracranial circulation was obtained. FINDINGS: Exam is mildly compromised by motion artifact. The right A1 segment is diminutive but patent. There is no abrupt cut off within the anterior intracranial circulation. The distal portion of the right vertebral artery is not well visualized on this exam and may be diminutive or occluded. This finding is age indeterminate. The left vertebral artery and basilar artery are patent. There is persistence of the right posterior cerebral artery. There is multifocal vascular irregularity due to atherosclerosis. IMPRESSION: 1. No flow related artifact within the distal right vertebral artery which may be diminutive or occluded. This finding is age indeterminate. 2. Study mildly compromised by motion artifact. 3. No abrupt vessel cut off within the anterior intracranial circulation. Electronically signed by: Jorge Juares M.D. 01/07/2018 7:23 AM Dictated Date/Time: 01/07/2018 7:19 AM
[2018-01-07 07:43] LABS: BASO % 0.4 %; BASO ABS # 0.03 K/uL (0-0.2); EOS % 1.1 %; EOS ABS # 0.08 K/uL (0-0.5); HEMATOCRIT 43.6 % (37-47); HEMOGLOBIN 15.2 g/dL (12.0-16.0); IG# 0.02 K/uL (0.00-0.02); LYMPH % 9.7 %; LYMPH ABS # 0.73 K/uL (1.2-3.4); MEAN CELL VOLUME 88.8 fL (80-100); MEAN CORPUSCULAR HGB CONC 34.9 g/dl (32-36); MEAN PLATELET VOLUME 10.2 fL (7.4-10.4); NEUT % 80.5 %; NEUT ABS # 6.08 K/uL (1.4-6.5); PLATELET COUNT 218 K/uL (130-400); RED CELL DISTRIBUTION WIDTH CV 13.5 % (11.5-14.5); WHITE BLOOD COUNT 7.54 K/uL (4.8-10.8)
[2018-01-07 08:17] LABS: CALCIUM 8.4 mg/dl (8.5-10.1); CREATININE 0.84 mg/dl (0.60-1.20); POTASSIUM 3.6 mmol/L (3.5-5.1)
[2018-01-07 08:30] VITALS: O2SAT 94
[2018-01-07] MEDS: AMANTADINE HCL 100 MG CAP PO SCH ×2 (08:50→20:45)
[2018-01-07] MEDS: ATORVASTATIN 40 MG TAB PO SCH (08:50)
[2018-01-07] MEDS ORDERED: ENTACAPONE 200 MG TAB PO SCH (09:00)
[2018-01-07] MEDS ORDERED: OXYBUTYNIN CHLORIDE 5 MG TAB PO SCH (09:00)
[2018-01-07] MEDS ORDERED: LORAZEPAM INJ 0.5 MG in SYRINGE 0.25 ML IV PRN (09:15)
--- NOTE | 2018-01-07 09:35 | Neurology Consultation ---
Neurology Consultation Date of Consultation: Jan 07, 2018. Attending Physician: Werner Hanson M.D. Primary Care Physician: Christine Her C.R.N.P. Reason for Consultation: TIA/dysarthria History of Present Illness Source: patient, clinic records, hospital records The patient is a 77-year-old female who is known to me. She has a history of advanced Parkinson's disease complicated by dyskinesias and visual hallucinations. She was last seen in Neurology Clinic 1 week ago. Her dosage of Seroquel was increased to address worsening insomnia. She is also prescribed Nuplazid to address fairly persistent, non distressing, visual hallucinations. Her Parkinson's disease medication regimen is complex. She takes Sinemet 25/100 milligram tablets, 2 tablets 4 times per day, Comtan 200 milligrams 4 times per day, amantadine 100 milligrams 2 times per day, and the Neupro patch, 2 milligrams per 24 hours. She also has a prescription for clonazepam 2 milligrams at bedtime. She has typically not tolerated reducing the dosage of her levodopa due to worsening off time. On the other hand, previous levodopa increases tend to result in dyskinesias for this patient. She has usually preferred to be a little dyskinetic. The patient awoke from a nap yesterday evening, around 8 p.m. in a reportedly altered fashion. She was apparently nonverbal and seemed to be confused yet she was able to walk around. These symptoms were felt to be atypical for the patient and she was taken to the emergency department for further evaluation. She is currently verbal and speaks in her typical hypophonic voice. She is resting comfortably in bed on one-to-one observation. She is generally not agitated and not dyskinetic appearing at this time. She has apparently been having some mild visual hallucinations in the hospital room including seeing individuals outside the window. No auditory hallucinations. The patient has refused her levodopa and other Parkinson's disease medications. A CT of the head reveals atrophy and microangiopathic disease. No hemorrhage or acute process. I reviewed the images as well as a radiologist's interpretation of this test. An MRA of the head is unremarkable although there is no distal flow for the right vertebral artery. An EKG reveals a normal sinus rhythm, 77 beats per minute. Past Medical/Surgical History Medical Problems: (1) Altered mental status Status: Acute (2) Altered mental status Status: Acute (3) Right rib fracture Status: Acute (4) UTI (urinary tract infection) Status: Acute Family History Noncontributory given patient's advanced age Social History Smoking Status: Never smoker Drug Use: none Marital Status: Housing Status: lives with family Occupation Status: disabled Allergies Coded Allergies: Flu Virus Vaccine (Unverified Allergy, Mild, UNSURE, 09/25/17) Current Inpatient Medications Current Inpatient Medications Medications (Trade) Dose Ordered Sig/Sheryas Route Start Time Stop Time Status Last Admin Dose Admin Heparin Sodium (Porcine) (Heparin Sq 5000 Unit/0.5ml) 5,000 unit Q8 SQ 01/07/18 06:00 02/06/18 05:59 Acetaminophen (Tylenol Tab) 650 mg Q4H PRN PO 01/06/18 23:30 02/05/18 23:29 Al Hydrox/Mg Hydrox/Simethicone (Maalox Max Susp) 15 ml Q4H PRN PO 01/06/18 23:30 02/05/18 23:29 Ondansetron HCl (Zofran Inj) 4 mg Q6H PRN IV 01/06/18 23:30 02/05/18 23:29 Atorvastatin Calcium (Lipitor Tab) 40 mg QAM PO 01/07/18 09:00 02/06/18 08:59 01/07/18 08:50 40 MG Miscellaneous Information (Pharmacist Discharge Med Rec Consult) 1 ea UD PRN N/A 01/06/18 23:30 02/05/18 23:29 Amantadine HCl (Symmetrel Cap) 100 mg Q12 PO 01/07/18 09:00 02/06/18 08:59 01/07/18 08:50 100 MG Clonazepam (Klonopin Tab) 2 mg HS PO 01/07/18 21:00 02/06/18 20:59 Gabapentin (Neurontin Cap) 300 mg BID@0600,2200 PO 01/07/18 06:00 02/06/18 05:59 Quetiapine Fumarate (seroQUEL TAB) 50 mg HS PO 01/07/18 21:00 02/06/18 20:59 Senna/Docusate Sodium (Senokot S Tab) 2 tab 1000 PO 01/07/18 10:00 02/06/18 09:59 Diphenhydramine HCl (Benadryl Cap) 50 mg HS PO 01/07/18 21:00 02/06/18 20:59 Miscellaneous Information (Order Awaiting Action) 1 ea QS N/A 01/07/18 08:00 02/06/18 07:59 Miscellaneous Information (Order Awaiting Action) 1 ea QS N/A 01/07/18 08:00 02/06/18 07:59 Carbidopa/Levodopa (Sinemet 25/ 100MG Tab) 1 tab QID@0600,1000,1400,1800 PO 01/07/18 06:00 02/06/18 05:59 Oxybutynin Chloride (Ditropan Tab) 5 mg TID@0600,1400,1800 PO 01/07/18 06:00 02/06/18 05:59 Entacapone (Comtan) 200 mg QID@0600,1000,1400,1800 PO 01/07/18 06:00 02/06/18 05:59 Clopidogrel Bisulfate (plAVix TAB) 75 mg QAM PO 01/08/18 09:00 02/07/18 08:59 Review of Systems Constitutional: No fever chills Eyes: No vision loss or diplopia ENT: No vertigo or hearing loss Cardiovascular: No chest pain or palpitations Respiratory: No coughing wheezing or shortness of breath Neurological: As per history of present illness Psychiatric: Insomnia and hallucinations as per history of present illness A full 10 point review of systems was obtained from this patient with pertinent positives and negatives described in the history of present illness and otherwise listed above. All remaining systems were reviewed and are negative. Physical Exam Vital Signs (Past 24 Hrs): Date Time Temp Pulse Resp B/P (MAP) Pulse Ox O2 Delivery O2 Flow Rate FiO2 01/07/18 07:18 74 18 143/51 (81) 94 01/07/18 04:00 Room Air 01/07/18 02:13 36.5 72 19 174/77 96 Room Air 01/07/18 01:45 36.5 72 19 174/77 (109) 96 Room Air 01/07/18 00:27 64 16 156/78 97 Room Air 01/06/18 23:03 65 18 105/83 97 Room Air 3/14/18 22:31 112/73 01/06/18 22:28 68 20 98 Room Air 01/06/18 22:16 130/68 01/06/18 22:01 159/75 01/06/18 21:58 73 20 97 Room Air 01/06/18 21:46 160/78 01/06/18 21:39 179/95 01/06/18 21:29 175/85 01/06/18 21:28 75 20 97 Room Air 01/06/18 21:27 96 Room Air 01/06/18 21:16 80 01/06/18 21:06 37.0 77 16 186/86 97 Room Air 01/06/18 21:02 186/86 The patient is a thin elderly female. She is lying comfortably in bed. She is alert and oriented to person and [facility]. She misses the exact day of the week and is not oriented to date. Attention and concentration normal. Her speech is hypophonic. She is able to name objects and repeat phrases. She exhibits an age-appropriate fund of knowledge a normal vocabulary. Visual gutierrez full to confrontation. Visual acuity normal. Pupils equal round react to light and accommodation. Eye movements normal. Facial sensation intact and symmetric. There is no facial droop or weakness. Hearing intact to finger rub bilaterally. Palate elevates to midline. Shoulder shrug intact. Tongue protrudes to midline. Sensation intact to light touch, temperature, vibration, and proprioception for all 4 limbs. Deep tendon reflexes are intact and symmetrical. Plantar response downgoing bilaterally. There is no dysdiadochokinesia or dysmetria with [id number] or heel to saavedra bilaterally. Ophthalmoscopic examination reveals normal-appearing optic discs and posterior segments. No papilledema or hemorrhages. Carotid pulses normal bilaterally, no bruits to auscultation. Gait station not tested due to safety concerns. Muscle strength normal for the arms and legs bilaterally. Muscle tone is generally increased. There is no atrophy. There are no obvious dyskinesias at this time. The patient does not exhibit a resting tremor at this time. Laboratory Results Past 24 Hours: 01/07/18 06:25 Red Blood Count 4.91, Mean Corpuscular Volume 88.8, Mean Corpuscular Hemoglobin 31.0, Mean Corpuscular Hemoglobin Concent 34.9, Mean Platelet Volume 10.2, Neutrophils (%) (Auto) 80.5, Lymphocytes (%) (Auto) 9.7, Monocytes (%) (Auto) 8.0, Eosinophils (%) (Auto) 1.1, Basophils (%) (Auto) 0.4, Neutrophils # (Auto) 6.08, Lymphocytes # (Auto) 0.73, Monocytes # (Auto) 0.60, Eosinophils # (Auto) 0.08, Basophils # (Auto) 0.03 01/07/18 06:25 Test 01/06/18 21:00 01/06/18 21:05 01/06/18 21:15 01/07/18 06:25 Prothrombin Time 10.9 SECONDS (9.0-12.0) Prothromb Time International Ratio 1.0 (0.9-1.1) Activated Partial Thromboplast Time 27.1 SECONDS (21.0-31.0) Partial Thromboplastin Ratio 1.0 Estimated Average Glucose 103 mg/dl Hemoglobin A1c 5.2 % (4.5-5.6) Total Bilirubin 0.6 mg/dl (0.2-1) Direct Bilirubin 0.1 mg/dl (0-0.2) Aspartate Amino Transf (AST/SGOT) 13 U/L (15-37) Alanine Aminotransferase (ALT/SGPT) 8 U/L (12-78) Alkaline Phosphatase 92 U/L (45-117) Troponin I < 0.015 ng/ml (0-0.045) Total Protein 7.1 gm/dl (6.4-8.2) Albumin 4.0 gm/dl (3.4-5.0) Bedside Prothrombin Time INR 1.1 (0.9-1.1) Bedside Glucose 118 mg/dl (70-90) Urine Color DK YELLOW Urine Appearance CLEAR (CLEAR) Urine pH 5.0 (4.5-7.5) Urine Specific [place] 1.028 (1.000-1.030) Urine Protein NEG (NEG) Urine Glucose (UA) NEG (NEG) Urine Ketones 1+ (NEG) Urine Occult Blood NEG (NEG) Urine Nitrite NEG (NEG) Urine Bilirubin NEG (NEG) Urine Urobilinogen NEG (NEG) Urine Leukocyte Esterase TRACE (NEG) Urine WBC (Auto) 1-5 /hpf (0-5) Urine RBC (Auto) 5-10 /hpf (0-4) Urine Hyaline Casts (Auto) 1-5 /lpf (0-5) Urine Epithelial Cells (Auto) >30 /lpf (0-5) Urine Bacteria (Auto) 1+ (NEG) Urine Renal Epithelial Cells /lpf (0-5) Urine Crystals CALCIUM OXALATE (NONE Urine Mucus PRESENT (NONE PRSENT) White Blood Count 7.54 K/uL (4.8-10.8) Red Blood Count 4.91 M/uL (4.2-5.4) Hemoglobin 15.2 g/dL (12.0-16.0) Hematocrit 43.6 % (37-47) Mean Corpuscular Volume 88.8 fL (80-100) Mean Corpuscular Hemoglobin 31.0 pg (25-34) Mean Corpuscular Hemoglobin Concent 34.9 g/dl (32-36) Platelet Count 218 K/uL (130-400) Mean Platelet Volume 10.2 fL (7.4-10.4) Neutrophils (%) (Auto) 80.5 % Lymphocytes (%) (Auto) 9.7 % Monocytes (%) (Auto) 8.0 % Eosinophils (%) (Auto) 1.1 % Basophils (%) (Auto) 0.4 % Neutrophils # (Auto) 6.08 K/uL (1.4-6.5) Lymphocytes # (Auto) 0.73 K/uL (1.2-3.4) Monocytes # (Auto) 0.60 K/uL (0.11-0.59) Eosinophils # (Auto) 0.08 K/uL (0-0.5) Basophils # (Auto) 0.03 K/uL (0-0.2) RDW Standard Deviation 44.0 fL (36.4-46.3) RDW Coefficient of Variation 13.5 % (11.5-14.5) Immature Granulocyte % (Auto) 0.3 % Immature Granulocyte # (Auto) 0.02 K/uL (0.00-0.02) Anion Gap 6.0 mmol/L (3-11) Est Creatinine Clear Calc Drug Dose 46.9 ml/min Estimated GFR () 76.6 Estimated GFR (Non- 66.1 BUN/Creatinine Ratio 29.1 (10-20) Calcium Level 8.4 mg/dl (8.5-10.1) Triglycerides Level 93 mg/dl (0-150) Cholesterol Level 153 mg/dl (0-200) HDL Cholesterol 39 mg/dl LDL Cholesterol, Calculated 95 mg/dl VLDL Cholesterol, Calculated 19 mg/dl Cholesterol/HDL Ratio 3.9 Impression This is a 77-year-old female with a history of advanced Parkinson's disease complicated by motor fluctuations including dyskinesias and off time. Her disease is further complicated by visual hallucinations and insomnia. She reportedly awoke from a nap yesterday evening behaving in an altered fashion. She was essentially nonverbal and confused appearing. A right facial droop had also been reported. Her presenting symptoms have resolved. She currently appears to be at her neurological baseline. Yet, she has been refusing her levodopa and she thus appears much less dyskinetic than is more typical for her. Although her presentation may be consistent with a TIA possibly localized to the left cerebral hemisphere, the observed nonverbal episode may also have been related to A Parkinson's associated motor fluctuation. Plan Follow-up with results of brain MRI when available. Given the possibility of TIA occurring on low-dose aspirin in this patient, I think switching from aspirin to Plavix is reasonable. Follow-up with MRA of the neck when available. If this test is nondiagnostic it may be necessary to follow up with a carotid ultrasound or CT angiogram. Outpatient records indicate this patient should be taking Sinemet 25/100 milligram, 2 tablets, 4 times per day. Please adjust patient's Sinemet dosage accordingly. Patient should continue with Nuplazid to address Parkinson's disease associated visual hallucinations Reduce dosage of Seroquel to 25 milligrams at bedtime as it is possible the recent Seroquel dosage increase may have contributed to her presentation. Continue amantadine to address Parkinson's associated dyskinesias. Continue Comtan and Neupro patch. Follow-up with results of transthoracic echocardiogram when available.
[2018-01-07] MEDS: CARBIDOPA/LEVODOPA 25/100MG TAB PO SCH ×3 (10:52→18:38)
[2018-01-07] MEDS: DOCUSATE SODIUM/SENNA 50/8.6MG TAB PO SCH (10:52)
[2018-01-07] MEDS ORDERED: PERFLUTREN LIPID MICROSPHERE (DEFINITY) IV ONE (11:14)
--- NOTE | 2018-01-07 13:16 | ECHOCARDIOGRAM REPORT ---
*NOTICE TO RECEIVING CONSTITUTION PARTY AGENCY This information is strictly Confidential and protected under [place] law. [place] law prohibits you from making any further disclosure of this information unless further disclosure is expressly permitted by the written consent of the person to whom it pertains or is authorized by law. A general authorization for the release of medical or other information is not sufficient for this purpose. Hospital accepts no responsibility if the information is made available to any other person, INCLUDING THE PATIENT. Interpretation Summary * Name: CHASITY TOTH Study Date: 01/07/2018 10:36 AM BP: 174/77 mmHg * Patient Location: [facility]\S\[id number] HR: 80 * : 1940 (M/d/yy) Gender: Female Height: 63 in * Age: 77 yrs Ethnicity: CA Weight: 132 lb * Ordering Physician: Betty Meyer * Referring Physician: Self, Referred * Performed By: Clarisa Parekh [facility] * * Reason For Study: TIA * BSA: 1.6 m2 * -- Conclusions -- * The study was technically difficult. * Image quality was suboptimal * There is borderline concentric left ventricular hypertrophy. * Left ventricular systolic function is normal. * Grade I diastolic dysfunction, (abnormal relaxation pattern). * The left atrium is mildly dilated. * Right ventricular systolic pressure is elevated at 30-40mmHg. Procedure Details * A complete two-dimensional transthoracic echocardiogram was performed (2D, M-mode, Doppler and color flow Doppler). * The study was technically difficult. * A saline contrast injection was performed to assess for cardiac shunting. * The injection was performed through an intravenous line in the right arm. * The attending nurse who injected the saline contrast was DANILO HUYNH, RN. * A total of 10 cc of agitated saline was given. * A contrast injection of Definity was performed to improve assessment of LV function. * Contrast was injected into an intravenous site in the right arm. * One vial of Definity ultrasound contrast was diluted in normal saline to a total volume of 10 ml. A total of '2' ml of solution was administered during imaging. * Lot # [id number] of Definity utilized for procedure. * Expiration date 1 FEB 19. * The attending nurse who injected the contrast agent was IDALIA Jackson PCU, RN. Left Ventricle * The left ventricle is grossly normal size. * There is borderline concentric left ventricular hypertrophy. * Left ventricular systolic function is normal. * Ejection Fraction = 55-60%. * Grade I diastolic dysfunction, (abnormal relaxation pattern). * The left ventricular wall motion is normal. Right Ventricle * The right ventricle is grossly normal size. * The right ventricular systolic function is normal. Atria * The left atrium is mildly dilated. * Right atrial size is normal. Mitral Valve * The mitral valve anatomy is normal. * Significant mitral regurgitation is absent. Tricuspid Valve * The tricuspid valve is not well visualized. * There is mild tricuspid regurgitation. * Right ventricular systolic pressure is elevated at 30-40mmHg. Aortic Valve * The aortic valve is normal in structure and function. * No hemodynamically significant valvular aortic stenosis. * There is no significant aortic regurgitation. Pericardium/Pleural * There is no pericardial effusion. Great Vessels * Normal inferior vena cava diameter and respiratory variation suggests normal central venous pressure. MMode 2D Measurements and Calculations LVAd ap4 23.1 cm\S\2 LVLd ap4 6.9 cm EDV(MOD-sp4) 63.3 ml EDV(sp4-el) 65.9 ml LVAs ap4 16.2 cm\S\2 LVLs ap4 6.1 cm ESV(MOD-sp4) 36.0 ml ESV(sp4-el) 36.8 ml EF(MOD-sp4) 43.1 % EF(sp4-el) 44.2 % LVAd ap2 22.9 cm\S\2 LVLd ap2 7.0 cm EDV(MOD-sp2) 61.2 ml EDV(sp2-el) 63.7 ml LVAs ap2 16.6 cm\S\2 LVLs ap2 6.2 cm ESV(MOD-sp2) 37.9 ml ESV(sp2-el) 37.6 ml EF(MOD-sp2) 38.2 % EF(sp2-el) 41.0 % LVLd %diff 1.5 % EDV(MOD-bp) 62.2 ml LVLs %diff 2.9 % ESV(MOD-bp) 37.0 ml EF(MOD-bp) 40.5 % SV(MOD-sp4) 27.3 ml SI(MOD-sp4) 16.8 ml/m\S\2 SV(MOD-sp2) 23.4 ml SI(MOD-sp2) 14.4 ml/m\S\2 SV(MOD-bp) 25.2 ml SI(MOD-bp) 15.5 ml/m\S\2 SV(sp4-el) 29.2 ml SI(sp4-el) 18.0 ml/m\S\2 SV(sp2-el) 26.1 ml SI(sp2-el) 16.1 ml/m\S\2 Doppler Measurements and Calculations Ao V2 max 126.7 cm/sec Ao max PG 6.4 mmHg Ao max PG (full) 3.1 mmHg LV V1 max PG 3.3 mmHg LV V1 max 91.2 cm/sec TR max lawson 251.1 cm/sec
[2018-01-07 15:11] VITALS: BP_SYST 101; BP_SYST 168; BP_DIAS 111; BP_DIAS 56; PULSE 82; TEMP 36.4; O2SAT 95
--- NOTE | 2018-01-07 17:41 | Family Medicine Progress Note ---
Progress Note Date of Service Jan 07, 2018. Subjective Spoke with pt at bedside, pt is very soft spoken but able to articulate and is oriented. Pt states that she does not want to do the MRI of the brain until she speaks with her son Jayy. Tried to call son Jayy at bedside but no answer on the phone. Then later son was at bedside, and we discussed going ahead with MRI if she is able to have ativan. Son agreeable. Denies chest pain or shortness of breath or new weakness. Reports her facial droop has resolved. Pt had two bouts of emesis per nurse this afternoon. Unsure of cause. Reports constipation, last BM was 13Mar. ROS See HPI for pertinent positives and negatives. Medications Current Inpatient Medications Medications (Trade) Dose Ordered Sig/Shreyas Route Start Time Stop Time Status Last Admin Dose Admin Heparin Sodium (Porcine) (Heparin Sq 5000 Unit/0.5ml) 5,000 unit Q8 SQ 01/07/18 06:00 02/06/18 05:59 01/07/18 14:21 5,000 UNIT Acetaminophen (Tylenol Tab) 650 mg Q4H PRN PO 01/06/18 23:30 02/05/18 23:29 Al Hydrox/Mg Hydrox/Simethicone (Maalox Max Susp) 15 ml Q4H PRN PO 01/06/18 23:30 02/05/18 23:29 Ondansetron HCl (Zofran Inj) 4 mg Q6H PRN IV 01/06/18 23:30 02/05/18 23:29 01/07/18 15:02 4 MG Atorvastatin Calcium (Lipitor Tab) 40 mg QAM PO 01/07/18 09:00 02/06/18 08:59 01/07/18 08:50 40 MG Miscellaneous Information (Pharmacist Discharge Med Rec Consult) 1 ea UD PRN N/A 01/06/18 23:30 02/05/18 23:29 Amantadine HCl (Symmetrel Cap) 100 mg Q12 PO 01/07/18 09:00 02/06/18 08:59 01/07/18 08:50 100 MG Clonazepam (Klonopin Tab) 2 mg HS PO 01/07/18 21:00 02/06/18 20:59 Gabapentin (Neurontin Cap) 300 mg BID@0600,2200 PO 01/07/18 06:00 4/14/18 05:59 Senna/Docusate Sodium (Senokot S Tab) 2 tab 1000 PO 01/07/18 10:00 02/06/18 09:59 01/07/18 10:52 2 TAB Diphenhydramine HCl (Benadryl Cap) 50 mg HS PO 01/07/18 21:00 02/06/18 20:59 Miscellaneous Information (Order Awaiting Action) 1 ea QS N/A 01/07/18 08:00 02/06/18 07:59 Miscellaneous Information (Order Awaiting Action) 1 ea QS N/A 01/07/18 08:00 02/06/18 07:59 Oxybutynin Chloride (Ditropan Tab) 5 mg TID@0600,1400,1800 PO 01/07/18 06:00 02/06/18 05:59 01/07/18 14:15 5 MG Entacapone (Comtan) 200 mg QID@0600,1000,1400,1800 PO 01/07/18 06:00 02/06/18 05:59 01/07/18 14:15 200 MG Clopidogrel Bisulfate (plAVix TAB) 75 mg QAM PO 01/08/18 09:00 02/07/18 08:59 Lorazepam 0.5 mg/ Syringe 0.5 ml @ 0.5 mls/min ONE PRN IV 01/07/18 09:15 02/06/18 09:14 Carbidopa/Levodopa (Sinemet 25/ 100MG Tab) 2 tab QID@0600,1000,1400,1800 PO 01/07/18 10:00 02/06/18 05:59 01/07/18 14:16 2 TAB Quetiapine Fumarate (seroQUEL TAB) 25 mg HS PO 01/07/18 21:00 02/06/18 20:59 Non-Formulary Medication (Non-Formulary Patient'S Own Med) 1 ea DAILY EXT 01/08/18 09:00 02/07/18 08:59 Objective Vital Signs Date Time Temp Pulse Resp B/P (MAP) Pulse Ox O2 Delivery O2 Flow Rate FiO2 01/07/18 15:11 36.4 82 18 101/56 (71) 95 01/07/18 12:30 Room Air 01/07/18 08:30 Room Air 01/07/18 08:30 94 Room Air 01/07/18 07:18 74 18 143/51 (81) 94 01/07/18 04:00 Room Air 01/07/18 02:13 36.5 72 19 174/77 96 Room Air 01/07/18 01:45 36.5 72 19 174/77 (109) 96 Room Air 01/07/18 00:27 64 16 156/78 97 Room Air 01/06/18 23:03 65 18 105/83 97 Room Air 01/06/18 22:31 112/73 01/06/18 22:28 68 20 98 Room Air 01/06/18 22:16 130/68 01/06/18 22:01 159/75 01/06/18 21:58 73 20 97 Room Air 01/06/18 21:46 160/78 01/06/18 21:39 179/95 01/06/18 21:29 175/85 01/06/18 21:28 75 20 97 Room Air 01/06/18 21:27 96 Room Air 01/06/18 21:16 80 01/06/18 21:06 37.0 77 16 186/86 97 Room Air 01/06/18 21:02 186/86 Physical Exam Notes: GENERAL: Awake, alert, in no distress. HENT: Normocephalic, atraumatic. Oropharynx unremarkable. EYES: Normal conjunctiva. Sclera non-icteric. RESPIRATORY: Clear to auscultation. CARDIAC: Regular rate, normal rhythm. Extremities warm and well perfused. Pulses equal. ABDOMEN: Soft, non-distended. No tenderness to palpation. No rebound or guarding. No masses. LOWER EXTREMITIES: Calves are equal size bilaterally and non-tender. No edema. No discoloration. NEURO: Normal sensorium. No sensory or strength asymmetry noted, although pt is weak at baseline. Dyskinesia present. SKIN: No rash or jaundice noted. Laboratory Results 01/07/18 06:25 Red Blood Count 4.91, Mean Corpuscular Volume 88.8, Mean Corpuscular Hemoglobin 31.0, Mean Corpuscular Hemoglobin Concent 34.9, Mean Platelet Volume 10.2, Neutrophils (%) (Auto) 80.5, Lymphocytes (%) (Auto) 9.7, Monocytes (%) (Auto) 8.0, Eosinophils (%) (Auto) 1.1, Basophils (%) (Auto) 0.4, Neutrophils # (Auto) 6.08, Lymphocytes # (Auto) 0.73, Monocytes # (Auto) 0.60, Eosinophils # (Auto) 0.08, Basophils # (Auto) 0.03 01/07/18 06:25 Test 01/06/18 21:00 01/06/18 21:05 01/06/18 21:15 01/07/18 06:25 Prothrombin Time 10.9 SECONDS (9.0-12.0) Prothromb Time International Ratio 1.0 (0.9-1.1) Activated Partial Thromboplast Time 27.1 SECONDS (21.0-31.0) Partial Thromboplastin Ratio 1.0 Estimated Average Glucose 103 mg/dl Hemoglobin A1c 5.2 % (4.5-5.6) Total Bilirubin 0.6 mg/dl (0.2-1) Direct Bilirubin 0.1 mg/dl (0-0.2) Aspartate Amino Transf (AST/SGOT) 13 U/L (15-37) Alanine Aminotransferase (ALT/SGPT) 8 U/L (12-78) Alkaline Phosphatase 92 U/L (45-117) Troponin I < 0.015 ng/ml (0-0.045) Total Protein 7.1 gm/dl (6.4-8.2) Albumin 4.0 gm/dl (3.4-5.0) Bedside Prothrombin Time INR 1.1 (0.9-1.1) Bedside Glucose 118 mg/dl (70-90) Urine Color DK YELLOW Urine Appearance CLEAR (CLEAR) Urine pH 5.0 (4.5-7.5) Urine Specific [place] 1.028 (1.000-1.030) Urine Protein NEG (NEG) Urine Glucose (UA) NEG (NEG) Urine Ketones 1+ (NEG) Urine Occult Blood NEG (NEG) Urine Nitrite NEG (NEG) Urine Bilirubin NEG (NEG) Urine Urobilinogen NEG (NEG) Urine Leukocyte Esterase TRACE (NEG) Urine WBC (Auto) 1-5 /hpf (0-5) Urine RBC (Auto) 5-10 /hpf (0-4) Urine Hyaline Casts (Auto) 1-5 /lpf (0-5) Urine Epithelial Cells (Auto) >30 /lpf (0-5) Urine Bacteria (Auto) 1+ (NEG) Urine Renal Epithelial Cells /lpf (0-5) Urine Crystals CALCIUM OXALATE (NONE Urine Mucus PRESENT (NONE PRSENT) White Blood Count 7.54 K/uL (4.8-10.8) Red Blood Count 4.91 M/uL (4.2-5.4) Hemoglobin 15.2 g/dL (12.0-16.0) Hematocrit 43.6 % (37-47) Mean Corpuscular Volume 88.8 fL (80-100) Mean Corpuscular Hemoglobin 31.0 pg (25-34) Mean Corpuscular Hemoglobin Concent 34.9 g/dl (32-36) Platelet Count 218 K/uL (130-400) Mean Platelet Volume 10.2 fL (7.4-10.4) Neutrophils (%) (Auto) 80.5 % Lymphocytes (%) (Auto) 9.7 % Monocytes (%) (Auto) 8.0 % Eosinophils (%) (Auto) 1.1 % Basophils (%) (Auto) 0.4 % Neutrophils # (Auto) 6.08 K/uL (1.4-6.5) Lymphocytes # (Auto) 0.73 K/uL (1.2-3.4) Monocytes # (Auto) 0.60 K/uL (0.11-0.59) Eosinophils # (Auto) 0.08 K/uL (0-0.5) Basophils # (Auto) 0.03 K/uL (0-0.2) RDW Standard Deviation 44.0 fL (36.4-46.3) RDW Coefficient of Variation 13.5 % (11.5-14.5) Immature Granulocyte % (Auto) 0.3 % Immature Granulocyte # (Auto) 0.02 K/uL (0.00-0.02) Anion Gap 6.0 mmol/L (3-11) Est Creatinine Clear Calc Drug Dose 46.9 ml/min Estimated GFR () 76.6 Estimated GFR (Non- 66.1 BUN/Creatinine Ratio 29.1 (10-20) Calcium Level 8.4 mg/dl (8.5-10.1) Triglycerides Level 93 mg/dl (0-150) Cholesterol Level 153 mg/dl (0-200) HDL Cholesterol 39 mg/dl LDL Cholesterol, Calculated 95 mg/dl VLDL Cholesterol, Calculated 19 mg/dl Cholesterol/HDL Ratio 3.9 Assessment and Plan 77F presents to the ER with complaints of strokelike symptoms PMH: Advanced Parkinson's disease Stroke like symptoms -- 2/2 transient ischemic attack vs medication induced vs Parkinson's associated motor fluctuation - Right-sided facial droop and dysarthria appears to have resolved and she is alert and oriented. A CT of the head: atrophy and microangiopathic disease. No hemorrhage or acute process. MRA of the head: unremarkable although there is no distal flow for the right vertebral artery. An EKG reveals a normal sinus rhythm, 77 beats per minute. - MRI brain - pending, MRA neck - pending. *Carotid ultrasound ordered in the meantime. MRA head shows no flow related artifact within the distal right vertebral artery, normal anterior intracranial circulation. Echo shows normal EF 55-60%, grade I diastolic dysfunction. - Lipid panel and hemoglobin A1c normal. - Switched to plavix for possibility of TIA. ASA dc'ed. - Lipitor 40 mg daily started - Neurology consult appreciate medication reconciliation and recommendations. - If pt is able to tolerate resulting MRA with ativan ordered, and if normal, discharge home tomorrow likely. Parkinson's disease-stable - Per her neurologist, Dr. Escobar, "She was last seen in Neurology Clinic 1 week ago. Her dosage of Seroquel was increased to address worsening insomnia. She is also prescribed Nuplazid to address fairly persistent, non distressing, visual hallucinations. Her Parkinson's disease medication regimen is complex. She takes Sinemet 25/100 milligram tablets, 2 tablets 4 times per day, Comtan 200 milligrams 4 times per day, amantadine 100 milligrams 2 times per day, and the Neupro patch, 2 milligrams per 24 hours." DVT prophylaxis: Heparin 5000units Full code Continued [facility] stay due to: other Discharge planning: home Resident Tracking Resident Involvement: Resident Care Provided Care Provided: Adult Hospital Medicine Reviewed: Pt Seen/Exam by Me History restless in bed. hasn't moved bowels in 3 days. was nauseous earlier and was given zofran. Constitutional: denies: fever General Appearance: other (restless in chair) Respiratory: no respiratory distress Neurologic/Psychiatric: alert, other (No focal weakness) Skin Characteristics: warm/dry Assessment/Plan Resident Physician Supervision Note: I independently interviewed and examined the patient and verified the mcqueen history and physical, reviewed labs and image studies, discussed the case with the resident Dr. Best and agree with the findings and care plan.
[2018-01-07] MEDS ORDERED: DOCUSATE SODIUM 100 MG CAP PO ONE (18:00)
[2018-01-07] MEDS ORDERED: POLYETHYLENE (MIRALAX) 17 GM PACK PO PRN (18:00)
[2018-01-07] MEDS ORDERED: CLONAZEPAM 1 MG TAB PO SCH (21:00)
[2018-01-07] MEDS ORDERED: QUETIAPINE FUMARATE 25 MG TAB PO SCH ×2 (21:00)
[2018-01-07 21:29] VITALS: BP 128/63; PULSE 77; TEMP 36.5; O2SAT 90
[2018-01-07] MEDS ORDERED: GADAVIST IV PRN (22:00)
--- NOTE | 2018-01-07 22:59 | DIAGNOSTIC IMAGING REPORT ---
BRAIN COMBO HISTORY: 77 years-old Female Stroke acute strokelike symptoms COMPARISON: MRA head 01/07/2018, CT head 01/06/2018 TECHNIQUE: Multiplanar multisequence MRI of the brain was obtained both with and without the use of 6 mL Gadavist FINDINGS: Study is motion degraded. Large [id number] superintendent marine oil terminal localizer images demonstrate no gross abnormality. There is no restricted diffusion to suggest acute or subacute infarction. The midline structures including the corpus callosum, brainstem, optic chiasm, infundibulum, pituitary and pineal glands are unremarkable in the sagittal T1 series. There is no cerebellar tonsillar herniation. Degenerative changes are seen within the imaged cervical spine. There is no acute intracranial hemorrhage, midline shift, or hydrocephalus. No intracranial mass. Moderate cerebral atrophy. Asymmetric increased CSF space adjacent to the left frontal lobe which follows CSF signal on all sequences redemonstrated measuring up to approximately 5.0 x 1.1 cm may be secondary to asymmetric atrophy or arachnoid cyst. There are a few patchy areas of T2/FLAIR prolongation within the subcortical white matter suggesting some chronic microvascular ischemic changes, very mild. There is no abnormal intra-axial or extra-axial enhancement identified. Asymmetric thickening of the left calvarium is again noted. The carotid flow voids appear unremarkable. Thinning of the bilateral optic lenses. Mastoid air cells are generally clear. Mild mucosal thickening of the nasal turbinates and ethmoid air cells with leftward nasal bowing and spurring. Scalp, calvarium and soft tissues are unremarkable. IMPRESSION: 1. Motion degraded exam. 2. No acute intracranial abnormality identified. No evidence of acute infarction. 3. Atrophy with very mild chronic microvascular ischemic changes. The above report was generated using voice recognition software. It may contain grammatical, syntax or spelling errors. Electronically signed by: Benji Smith M.D. 01/07/2018 10:57 PM Dictated Date/Time: 01/07/2018 10:47 PM
--- NOTE | 2018-01-07 23:01 | DIAGNOSTIC IMAGING REPORT ---
CAROTID DOPPLER NECK ART CLINICAL HISTORY: 77 years-old Female with h/o facial droop. Acute strokelike symptoms COMPARISON: MRA of the head and neck same day TECHNIQUE: Multiple real time sonographic images of the carotid bifurcations were obtained assessing lawson scale, color Doppler and spectral wave form appearance FINDINGS: Blood pressures were not conducted secondary to patient cooperation. RIGHT INTERNAL CAROTID: The peak systolic velocity measured 50 cm/sec. The end diastolic velocity measured 14 cm/sec. The ICA to CCA ratio measured 0.9 which correlates with a stenosis of 0-50%. Mild plaquing of the right carotid bulb LEFT INTERNAL CAROTID: The peak systolic velocity measured 54 cm/sec. The end diastolic velocity measured 17 cm/sec. The ICA to CCA ratio measured 0.74 which correlates with a stenosis of 0-50%. Mild plaquing of the left carotid bulb There is normal antegrade vertebral flow bilaterally. IMPRESSION: 1. No hemodynamically significant stenosis or significant atherosclerotic plaquing. 2. Normal antegrade vertebral flow bilaterally. The above report was generated using voice recognition software. It may contain grammatical, syntax or spelling errors. Electronically signed by: Benji Smith M.D. 01/07/2018 11:00 PM Dictated Date/Time: 01/07/2018 10:58 PM
--- NOTE | 2018-01-07 23:14 | DIAGNOSTIC IMAGING REPORT ---
MRA NECK COMBO CLINICAL HISTORY: 77 years-old Female with Stroke. Acute strokelike symptoms COMPARISON STUDY: MRA of the head 01/07/2018, carotid ultrasound of same day, cervical spine CT 09/17/2015. TECHNIQUE: Axial 3-D epvc-on-wauwzo MR angiography of the neck is performed. Subsequently, following the IV administration of 6 cc of Gadavist coronal MR angiogram of the neck was performed to corroborate the findings. 3-D reformats are created and assessed. All measurements were calculated based on NASCET criteria. FINDINGS: The large field of view pig machine operator localizer images demonstrate no gross abnormality. Multinodular goiter is redemonstrated. Cystic foci are seen within the left thyroid lobe with slight deviation of the trachea and esophagus to the right. Remaining soft tissues are unremarkable. Study is motion degraded. The bilateral common and internal carotid arteries appear widely patent. The imaged bilateral subclavian arteries are also patent and within normal limits. The left vertebral artery is dominant. The distal V4 segment right vertebral artery is diminutive in size, nicely seen on series 1501. MRA is otherwise unremarkable without additional high-grade stenosis, proximal branch occlusion, aneurysm, or dissection. IMPRESSION: 1. Mildly motion degraded exam. 2. The distal V4 segment right vertebral artery is diminutive in size, likely a chronic finding with a dominant left vertebral artery. No definite acute vessel occlusion or definite high-grade stenosis identified. 3. MRA of the neck is otherwise unremarkable. 4. Multinodular goiter. The above report was generated using voice recognition software. It may contain grammatical, syntax or spelling errors. Electronically signed by: Benji Smith M.D. 01/07/2018 11:13 PM Dictated Date/Time: 01/07/2018 11:01 PM
[2018-01-08] VITALS (7 sets, daily range): BP systolic 101–132; BP diastolic 57–77; PULSE 61–77; TEMP 36.4–37.1; O2SAT 95–97
[2018-01-08] MEDS: GABAPENTIN 300 MG CAP PO SCH ×2 (05:50→08:23)
[2018-01-08] MEDS: CARBIDOPA/LEVODOPA 25/100MG TAB PO SCH ×4 (05:50→17:49)
[2018-01-08] MEDS: OXYBUTYNIN CHLORIDE 5 MG TAB PO SCH ×3 (05:50→17:45)
[2018-01-08] MEDS: ENTACAPONE 200 MG TAB PO SCH ×4 (05:50→17:45)
[2018-01-08] MEDS: HEPARIN SOD 5000 UNIT/0.5 ML CARP SQ SCH ×2 (05:51→14:00)
[2018-01-08] MEDS ORDERED: DOCUSATE SODIUM 100 MG CAP PO PRN (08:00)
[2018-01-08 08:22] LABS: CALCIUM 8.5 mg/dl (8.5-10.1); CREATININE 0.85 mg/dl (0.60-1.20)
[2018-01-08] MEDS: AMANTADINE HCL 100 MG CAP PO SCH (08:24)
[2018-01-08] MEDS: ATORVASTATIN 40 MG TAB PO SCH (08:25)
[2018-01-08] MEDS ORDERED: NEUPRO 2 MG/24 HR EXT SCH (09:00)
[2018-01-08] MEDS ORDERED: CLOPIDOGREL BISULFATE 75 MG TAB PO SCH (09:00)
[2018-01-08] MEDS: DOCUSATE SODIUM/SENNA 50/8.6MG TAB PO SCH (10:54)
[2018-01-08] MEDS ORDERED: DOCU-94 PO (11:33)
[2018-01-08] MEDS ORDERED: PLV75 PO (11:33)
--- NOTE | 2018-01-08 11:47 | Discharge Instructions ---
Discharge Instructions Date of Service Jan 08, 2018. Admission Reason for Admission: Dysarthria, Tia Discharge Discharge Diagnosis / Problem: TIA Discharge Goals Goal(s): Decrease discomfort Activity Recommendations Activity Limitations: per Instructions/Follow-up section . Instructions / Follow-Up Instructions / Follow-Up You were admitted because of facial droop and difficulty speaking. Based on the brain scans, heart scan and neck vessels scans, it appears that you may have had what's called a "transient ischemic attack" or mini-stroke. Often times these cannot be seen on imaging, however given that your symptoms have resolved and you are feeling well, we recommend you start a new medication called Plavix. This will replace your daily aspirin. Plavix works very similarly to aspirin, but it is a drug we use commonly after people experience a mini stroke. Risks are similar to aspirin, namely bleeding. Please be sure to read the insert on the packaging with regard to other side effects, although they are rare. As always, ask your pharmacist if you have any questions regarding this medication. Dr. Escobar would like to follow up with you in his clinic within 1-2 weeks. His office will be reaching out to you to schedule that appointment, but please also call his office to make sure. No other changes were made to your parkinson's meds -- if you have any questions regarding dosages, please call Dr. Escobar's office. We recommend that if you are experiencing constipation, to try taking a colace tablet 1-2 times per day, to help you make a soft stool once a day. Be well A Nasir Risk Factors for Stroke: You can reduce your chances of stroke by working with your medical provider to adopt a healthy lifestyle. Some specific ways to lower your chance of stroke are: * If you are a smoker, now is the time to stop smoking cigarettes * If you are diabetic, improve the control of your blood sugars * Avoid excessive amounts of alcohol * Control high blood pressure * Lose weight if you are overweight * Be sure to lead an active lifestyle * Eat a healthy diet low in salt, cholesterol and fat You should know about other risk factors for stroke that you are unable to control. These include: * Age 55 years or older * Male gender * Certain racial groups: , or / * Family History of Stroke, Mini stroke or Heart Attack * Sickle Cell Disease Follow Up: It is important for you to keep your follow up appointments with your medical provider. Current Hospital Diet Patient's current hospital diet: AHA Diet (Heart Healthy) Discharge Diet Recommended Diet: Regular Diet Diet Texture: Dental Soft (bite-sized) Pending Studies Studies pending at discharge: no Laboratory Results Hemoglobin A1c Test 01/06/18 21:00 Range/Units Estimated Average Glucose 103 mg/dl Hemoglobin A1c 5.2 4.5-5.6 % Lipid Panel Test 01/07/18 06:25 Range/Units Triglycerides Level 93 0-150 mg/dl Cholesterol Level 153 0-200 mg/dl HDL Cholesterol 39 mg/dl Cholesterol/HDL Ratio 3.9 LDL Cholesterol, Calculated 95 mg/dl Medical Emergencies . Who to Call and When: Medical Emergencies: Call 911 immediately if you experience any of the following warning signs and symptoms of Stroke: * Sudden numbness or weakness of the face, arm or leg, especially on one side of the body * Sudden confusion, trouble speaking or understanding * Sudden trouble seeing in one or both eyes * Sudden trouble walking, dizziness, loss of balance or coordination * Sudden severe headache with no cause Do not delay calling 911 if you experience any warning signs or symptoms of a stroke. Delay in seeking medical attention may affect what treatments can be given to you. . Non-Emergent Contact Non-Emergency issues call your: Primary Care Provider, Neurologist . . "Provider Documentation" section prepared by Iliana Best. . Stroke Core Measures Reason no t-PA for Stroke: Treatment not indicated Reason no antithrom by day 2: Treatment not indicated Reason no antithrom at D/C: Treatment not indicated Reason no statin at D/C: Treatment not indicated Reason no anticoag w/a fib: Treatment provided - N/A
--- NOTE | 2018-01-08 12:06 | Neurology Progress Notes ---
Neurology Progress Note Date of Service Jan 08, 2018. Subjective Follow-up for Parkinson's disease, possible TIA The patient does not have any specific complaints this morning. She has received her Sinemet and appears mildly dyskinetic, which is typical for her. No further episodes of mutism or speech arrest. The Patient's brain MRI and carotid ultrasound are unremarkable. No evidence of acute or subacute infarct. No evidence of hemodynamically significant stenosis. I reviewed the images as well as the radiologist's interpretation of her brain MRI and agree. Transthoracic echocardiogram completed. No cardioembolic source identified. Patient denies significant insomnia last night in spite of the recent Seroquel dosage reduction. Objective Date Time Temp Pulse Resp B/P (MAP) Pulse Ox O2 Delivery O2 Flow Rate FiO2 01/08/18 11:31 36.4 67 20 117/69 (85) 96 Room Air 01/08/18 08:00 96 Room Air 01/08/18 08:00 Room Air 01/08/18 07:30 37.1 71 18 132/71 (91) 95 Room Air 01/08/18 05:36 36.9 77 17 130/77 (94) 96 Room Air 01/08/18 04:05 Room Air 01/08/18 00:12 36.9 61 16 102/57 (72) 97 Room Air 01/08/18 00:00 Room Air 01/07/18 21:29 36.5 77 16 128/63 (84) 90 Room Air 01/07/18 20:00 Room Air 01/07/18 16:00 Room Air 01/07/18 15:11 36.4 82 18 101/56 (71) 95 01/07/18 12:30 Room Air Last 24 Hours Test 01/08/18 07:22 Sodium Level 142 mmol/L Potassium Level 4.0 mmol/L Chloride Level 111 mmol/L Carbon Dioxide Level 26 mmol/L Anion Gap 5.0 mmol/L Blood Urea Nitrogen 23 mg/dl Creatinine 0.85 mg/dl Est Creatinine Clear Calc Drug Dose 46.4 ml/min Estimated GFR () 75.5 Estimated GFR (Non- 65.2 BUN/Creatinine Ratio 27.2 Random Glucose 93 mg/dl Calcium Level 8.5 mg/dl Exam: The patient is lying comfortably in bed. Her speech is hypophonic. She is alert and oriented to person and place. She misses the exact date. Speech is otherwise fluent. She is able to name objects and repeat phrases. Attention and concentration are normal. Visual gutierrez full to confrontation. Visual acuity normal. Pupils equal round reactive to light and accommodation. Eye movements normal. There is no facial droop. There is no pronator drift with outstretched arms. Wmwjgh-ry-nops and uebr-af-phxh normal. The patient is mildly dyskinetic appearing. Current Inpatient Medications Medications (Trade) Dose Ordered Sig/Shreyas Route Start Time Stop Time Status Last Admin Dose Admin Heparin Sodium (Porcine) (Heparin Sq 5000 Unit/0.5ml) 5,000 unit Q8 SQ 01/07/18 06:00 02/06/18 05:59 01/08/18 05:51 5,000 UNIT Acetaminophen (Tylenol Tab) 650 mg Q4H PRN PO 01/06/18 23:30 02/05/18 23:29 Al Hydrox/Mg Hydrox/Simethicone (Maalox Max Susp) 15 ml Q4H PRN PO 01/06/18 23:30 02/05/18 23:29 Ondansetron HCl (Zofran Inj) 4 mg Q6H PRN IV 01/06/18 23:30 02/05/18 23:29 01/07/18 15:02 4 MG Atorvastatin Calcium (Lipitor Tab) 40 mg QAM PO 01/07/18 09:00 02/06/18 08:59 01/08/18 08:25 40 MG Miscellaneous Information (Pharmacist Discharge Med Rec Consult) 1 ea UD PRN N/A 01/06/18 23:30 02/05/18 23:29 Amantadine HCl (Symmetrel Cap) 100 mg Q12 PO 01/07/18 09:00 02/06/18 08:59 01/08/18 08:24 100 MG Clonazepam (Klonopin Tab) 2 mg HS PO 01/07/18 21:00 02/06/18 20:59 01/07/18 20:45 2 MG Gabapentin (Neurontin Cap) 300 mg BID@0600,2200 PO 01/07/18 06:00 02/06/18 05:59 01/08/18 08:23 300 MG Senna/Docusate Sodium (Senokot S Tab) 2 tab 1000 PO 01/07/18 10:00 02/06/18 09:59 01/08/18 10:54 2 TAB Diphenhydramine HCl (Benadryl Cap) 50 mg HS PO 01/07/18 21:00 02/06/18 20:59 01/07/18 20:45 50 MG Miscellaneous Information (Order Awaiting Action) 1 ea QS N/A 01/07/18 08:00 02/06/18 07:59 Oxybutynin Chloride (Ditropan Tab) 5 mg TID@0600,1400,1800 PO 01/07/18 06:00 02/06/18 05:59 01/08/18 05:50 5 MG Entacapone (Comtan) 200 mg QID@0600,1000,1400,1800 PO 01/07/18 06:00 02/06/18 05:59 01/08/18 10:55 200 MG Clopidogrel Bisulfate (plAVix TAB) 75 mg QAM PO 01/08/18 09:00 02/07/18 08:59 01/08/18 08:25 75 MG Lorazepam 0.5 mg/ Syringe 0.5 ml @ 0.5 mls/min ONE PRN IV 01/07/18 09:15 02/06/18 09:14 01/07/18 20:57 0.5 MLS/MIN Carbidopa/Levodopa (Sinemet 25/ 100MG Tab) 2 tab QID@0600,1000,1400,1800 PO 01/07/18 10:00 02/06/18 05:59 01/08/18 10:55 2 TAB Quetiapine Fumarate (seroQUEL TAB) 25 mg HS PO 01/07/18 21:00 02/06/18 20:59 01/07/18 20:46 25 MG Non-Formulary Medication (Non-Formulary Patient'S Own Med) 1 ea DAILY EXT 01/08/18 09:00 02/07/18 08:59 01/08/18 08:23 1 EA Docusate Sodium (coLACE CAP) 100 mg BID PRN PO 01/08/18 08:00 02/07/18 07:59 Polyethylene (Miralax Powder Packet) 17 gm DAILY PRN PO 01/07/18 18:00 02/06/18 17:59 Gadobutrol (Gadavist) 6 mmol UD PRN IV 01/07/18 22:00 01/11/18 21:59 Impression Advanced Parkinson's disease complicated by motor fluctuations and visual hallucinations. No evidence of recent stroke or embolic source on recent imaging evaluation. Patient's presentation consistent with either TIA or possibly a motor fluctuation related to her Parkinson's disease. Plan Continue with Plavix 75 milligrams per day Continue with reduced dosage of Seroquel, 25 milligrams at bedtime. Continue other medications for patient's Parkinson's disease. Follow-up with me in clinic
--- NOTE | 2018-01-08 12:35 | Pharmacy Progress Note ---
Pharmacist Stroke Counseling Date of Service Jan 08, 2018. Scope Pharmacy has been consulted to provide medication discharge counseling for this patient admitted with ischemic transient ischemic attack as per the Pharmacist Discharge Counseling for Stroke Patients Protocol. Medications on Discharge New Medications: Docusate Sodium (Colace) 100 Mg Cap 1 CAP PO BID for Constipation for 15 Days, #30 CAP Clopidogrel Bisulfate (Clopidogrel) 75 Mg Tab 75 MG PO QAM for 30 Days, #30 TAB Continued Medications: Amantadine Hcl (Symmetrel) 100 Mg Tab 1 TAB PO Q12 Carbidopa/Levodopa (Sinemet 25MG/100MG) Tab 2 TAB PO QID, 0 Refills PT TAKES 0600/1000/1400/1800 Clonazepam (Klonopin) 2 Mg Tab 2 MG PO HS Diphenhydramine Hcl (Benadryl Allergy) 25 Mg Tab 50 MG PO HS SLEEP AID Entacapone (Comtan) 200 Mg Tab 200 MG PO QID PT TAKES 0600/1000/1400/1800 Gabapentin (Neurontin) 300 Mg Cap 300 MG PO BID PT TAKE ONE TABLET AT 0600 AND ONE TABLET AT 2200 Oxybutynin Chloride (Ditropan) 5 Mg Tab 1 TAB PO TID 0600/1400/1800 Pimavanserin Tartrate (Nuplazid) 17 Mg Tab 17 MG PO BID 0600/1800 Quetiapine Fumarate (Seroquel) 25 Mg Tab 25 MG PO HS Rotigotine (Neupro) 1 Mg/24 Hr Dis 1 MG TOP DAILY TAKE 1000 Sennosides-Docusate Sodium (Stool Softener) 1 Tab Tab 2 TAB PO 1000 Discontinued Medications: Aspirin (Aspirin Ec) 81 Mg Tab 81 MG PO 0600 Action The above medications, specifically ones for stroke treatment/prophylaxis, have been reviewed in detail with the patient and/or patient customer loyalty representative(s) prior to discharge. This includes indication, common adverse reactions, drug interactions, and medication administration. Medication counseling has been employed using the teach-back method to ensure understanding. Outcome The patient and/or patient customer loyalty representative(s) have demonstrated understanding of the medications. Please note, they are aware that the pharmacist will call them within 72 hours post-discharge to confirm that the appropriate medications are being taken and answer any further medication related questions the patient might have at that time. Contact information Individual to be contacted: Jayy Relationship to patient (if applicable): Son Phone number: [phone] Best time to call: Any Additional comments: Reviewed medication changes: stopping aspirin and new medication (Plavix) directions for use, possible side effects, drug interactions, etc with patient, , and daughter in law Son, Jayy, was not present for the counselling but he is the linesperson Thank you for allowing pharmacy to be involved in the care of this patient. Please call [phone] or [phone] with any additional questions
--- NOTE | 2018-01-08 18:39 | Discharge Summary ---
Discharge Summary Date of Service Jan 08, 2018. Discharge Summary Admission Date: Jan 06, 2018 at 23:28 Discharge Date: Jan 08, 2018 Discharge Disposition: Home Principal Diagnosis: TIA Problems/Secondary Diagnoses: Advanced Parkinson's disease, with motor fluctuation Procedures: Head CT Chest X-ray Neck MRA Brain MRI Head MRA Carotid artery US Consultations: Neurology Medication Reconciliation New Medications: Docusate Sodium (Colace) 100 Mg Cap 1 CAP PO BID for Constipation for 15 Days, #30 CAP Clopidogrel Bisulfate (Clopidogrel) 75 Mg Tab 75 MG PO QAM for 30 Days, #30 TAB Continued Medications: Amantadine Hcl (Symmetrel) 100 Mg Tab 1 TAB PO Q12 Carbidopa/Levodopa (Sinemet 25MG/100MG) Tab 2 TAB PO QID, 0 Refills PT TAKES 0600/1000/1400/1800 Clonazepam (Klonopin) 2 Mg Tab 2 MG PO HS Diphenhydramine Hcl (Benadryl Allergy) 25 Mg Tab 50 MG PO HS SLEEP AID Entacapone (Comtan) 200 Mg Tab 200 MG PO QID PT TAKES 0600/1000/1400/1800 Gabapentin (Neurontin) 300 Mg Cap 300 MG PO BID PT TAKE ONE TABLET AT 0600 AND ONE TABLET AT 2200 Oxybutynin Chloride (Ditropan) 5 Mg Tab 1 TAB PO TID 0600/1400/1800 Pimavanserin Tartrate (Nuplazid) 17 Mg Tab 17 MG PO BID 0600/1800 Quetiapine Fumarate (Seroquel) 25 Mg Tab 25 MG PO HS Rotigotine (Neupro) 1 Mg/24 Hr Dis 1 MG TOP DAILY TAKE 1000 Sennosides-Docusate Sodium (Stool Softener) 1 Tab Tab 2 TAB PO 1000 Discontinued Medications: Aspirin (Aspirin Ec) 81 Mg Tab 81 MG PO 0600 Discharge Exam Pt sitting on side of the bed on interview of day of discharge, in better spirits, doing PT with therapist. Reports some constipation, but otherwise is feeling well, denies chest pain, dyspnea, or diarrhea. Pt ready and willing to go home. Reviewed brain imaging with pt and discussed new medication plavix. Answered all questions. ROS See HPI for pertinent positives and negatives. PE GENERAL: Awake, alert, in no distress. HENT: Normocephalic, atraumatic. Oropharynx unremarkable. Dentures in place. EYES: Normal conjunctiva. Sclera non-icteric. RESPIRATORY: Clear to auscultation. CARDIAC: Regular rate, normal rhythm. Extremities warm and well perfused. Pulses equal. ABDOMEN: Soft, non-distended. No tenderness to palpation. No rebound or guarding. No masses. LOWER EXTREMITIES: Calves are equal size bilaterally and non-tender. No edema. No discoloration. NEURO: Normal sensorium. No sensory or strength asymmetry noted, although pt is somewhat weak at baseline. Dyskinesia present. SKIN: No rash or jaundice noted. Hospital Course Ms. Villegas was admitted to the ER presenting with stroke like symptoms. Pt awoke from a nap on day of admission complaining of right sided facial droop and dysarthria. Upon morning after overnight admission, facial droop and dysarthria were resolved. Imaging done here includes: A CT of the head: atrophy and microangiopathic disease. No hemorrhage or acute process. An EKG reveals a normal sinus rhythm, 77 beats per minute. MRA head shows no flow related artifact within the distal right vertebral artery, normal anterior intracranial circulation. Echo shows normal EF 55-60%, grade I diastolic dysfunction. Carotid artery US: no hemodynamically significant stenosis or significant atherosclerotic plaquing, normal antegrade vertebral flow bilaterally. Brain MRI showed no acute infarct. Dr. Escobar, who is Ms. Villegas's neurologist reviewed the scans as well as her medications. Ms. Villegas is presumed to have suffered a TIA, and has been switched from aspirin daily to Plavix. Also suspected that some of symptoms could be from changes in the dose of seroquel. Dr. Escobar plans on seeing pt in his office in 1-2 weeks to follow up. Added colace Total Time Spent: Greater than 30 minutes This includes examination of the patient, discharge planning, medication reconciliation, and communication with other providers. Discharge Instructions Please refer to the electronic Patient Visit Report (Discharge Instructions) for additional information. Additional Copies To Christine Her C.R.NMichaelPMichael Resident Tracking Resident Involvement: Resident Care Provided Care Provided: Adult Hospital Medicine Reviewed: Pt Seen/Exam by Me History alert this am. denied any concerns. last BM 3 days ago Constitutional: denies: fever Respiratory: negative: short of breath Cardiovascular: denies chest pain General Appearance: no apparent distress Respiratory: lungs clear, no respiratory distress Cardiovascular: regular rate, rhythm Neurologic/Psychiatric: alert, oriented x 3 Skin Characteristics: other (no new focal deficit) Assessment/Plan Resident Physician Supervision Note: I independently interviewed and examined the patient and verified the mcqueen history and physical, reviewed labs and image studies, discussed the case with the resident Dr. Best and agree with the findings and care plan. Time spent in discharge 35 min
[2018-01-09] MEDS ORDERED: ROTIGOTINE TD SCH (09:00)
--- NOTE | 2018-01-11 14:15 | Pharmacy Progress Note ---
Pharmacist Post D/C Phone Note Date of phone call: Jan 11, 2018. Individual with whom pharmacist spoke to: Jayy (patient's son) The following questions were reviewed during the phone call with responses listed below each: Can you tell me the medications that you are currently taking as well as when and how you take each medication? - Medications Dose Route/Sig Max Daily Dose Days Date Category Dose Instructions Colace (Docusate Sodium) 100 Mg Cap 1 Cap PO BID 15 01/08/18 Rx Clopidogrel (Clopidogrel Bisulfate) 75 Mg Tab 75 Mg PO QAM 30 01/08/18 Rx Benadryl Allergy (Diphenhydramine Hcl) 25 Mg Tab 50 Mg PO HS 09/25/17 Reported SLEEP AID Nuplazid (Pimavanserin Tartrate) 17 Mg Tab 17 Mg PO BID 09/25/17 Reported 0600/1800 Ditropan (Oxybutynin Chloride) 5 Mg Tab 1 Tab PO TID 02/12/17 Reported 0600/1400/1800 Neupro (Rotigotine) 1 Mg/24 Hr Dis 1 Mg TOP DAILY 03/14/16 Reported TAKE 1000 Seroquel (Quetiapine Fumarate) 25 Mg Tab 25 Mg PO HS 05/27/15 Reported Neurontin (Gabapentin) 300 Mg Cap 300 Mg PO BID 05/27/15 Reported PT TAKE ONE TABLET AT 0600 AND ONE TABLET AT 2200 Klonopin (Clonazepam) 2 Mg Tab 2 Mg PO HS 05/27/15 Reported Comtan (Entacapone) 200 Mg Tab 200 Mg PO QID 05/27/15 Reported PT TAKES 0600/1000/1400/1800 Symmetrel (Amantadine HCl) 100 Mg Tab 1 Tab PO Q12 05/27/15 Reported Sinemet 25MG/100MG (Carbidopa/Levodopa) Tab 2 Tab PO QID 05/06/07 Reported PT TAKES 0600/1000/1400/1800 When have you missed any doses of your medications? - No What side effects are you having from your medications? - Constipation now turned into frequent bowel movements. Bottom is sore. Instructed family to hold colace for 48 hrs and then resume at once daily. If constipation re-occurs then increase back to twice daily. - She is not taking Sennakot S daily. What questions do you have about your medications? - None What problems are you having obtaining your medications? - None When is your next appointment with your primary care doctor? - 01/25/18 As per the Pharmacist Discharge Counseling for Stroke Patients Protocol, this phone call has been completed within 72 hours of discharge. Thank you for allowing us to be involved in the care of this patient.
== END 2018-01-08 17:56 | disposition home or self-care (01) | DRG 69 ==
LOC: EDBD 20:58 → C.EDA 21:00 → C.MED 23:28 → ENRESERV 23:59
PROVIDERS: ADMIT Family Medicine; ATTEND Family Medicine
DX: G45.9 Transient cerebral ischemic attack, unspecified (principal); G20 Parkinson's disease; R44.1 Visual hallucinations; Z86.73 Personal history of transient ischemic attack (TIA), and cerebral infarction without residual deficits; Z90.49 Acquired absence of other specified parts of digestive tract; Z79.82 Long term (current) use of aspirin; Z88.7 Allergy status to serum and vaccine

== ENCOUNTER 2018-02-10 22:03 | Inpatient (IN) | payer OTHER ==
[~2018-02-10] VITALS: Ht 162.6 cm; Wt 46.7 kg
[~2018-02-10 22:03] MED LIST changes: -ASPI81TA28 PO; -CALC600T PO; +PLV75 PO; -SENNTAB23 PO
[2018-02-10] MEDS ORDERED: SODIUM CHLORIDE 0.9% 1000ML 1,000 ML IV SCH (22:05)
--- NOTE | 2018-02-10 22:35 | DIAGNOSTIC IMAGING REPORT ---
HEAD WITHOUT CONTRAST (CT) CLINICAL HISTORY: 77 years-old Female presenting with Stroke. TECHNIQUE: Multidetector CT imaging of the head was performed without the use of intravenous contrast. IV contrast: None. A dose lowering technique was used consistent with the principles of ALARA (as low as reasonably achievable). COMPARISON: 01/06/2018. CT DOSE (mGy.cm): The estimated cumulative dose is 749.40 mGy.cm. FINDINGS: Intensive Care Specialist topogram: Unremarkable. Ventricles and sulci normal in size. 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 Brain parenchyma normal in appearance with preserved lawson-white differentiation. No mass effect or midline shift. No hemorrhage or acute territorial infarct. No extra-axial fluid collection. Paranasal sinuses and mastoid air cells clear. Calvarium intact. IMPRESSION: 1. No significant change compared to the prior study. No acute intracranial abnormality. No hemorrhage. Electronically signed by: Remington Cedeño M.D. 02/10/2018 10:34 PM Dictated Date/Time: 02/10/2018 10:31 PM
[2018-02-10] MEDS ORDERED: SET 2260-0500 IV ONE (22:45)
[2018-02-10] MEDS ORDERED: RECOMBINANT IV ONE (22:45)
[2018-02-10] MEDS ORDERED: RECOMBINANT IV SCH (22:45)
[2018-02-10] MEDS ORDERED: ALTEPLASE IV SCH (22:45)
[2018-02-10] MEDS ORDERED: ALTEPLASE IV ONE (22:45)
[2018-02-10 22:58] LABS: BASO % 0.3 %; BASO ABS # 0.02 K/uL (0-0.2); EOS % 0.7 %; EOS ABS # 0.05 K/uL (0-0.5); HEMOGLOBIN 14.7 g/dL (12.0-16.0); IG# 0.01 K/uL (0.00-0.02); LYMPH % 17.3 %; MEAN CELL VOLUME 89.2 fL (80-100); MEAN CORPUSCULAR HEMOGLOBIN 30.5 pg (25-34); MEAN CORPUSCULAR HGB CONC 34.2 g/dl (32-36); MEAN PLATELET VOLUME 9.4 fL (7.4-10.4); MONO % 9.4 %; MONO ABS # 0.71 K/uL (0.11-0.59); NEUT % 72.2 %; NEUT ABS # 5.43 K/uL (1.4-6.5); PLATELET COUNT 254 K/uL (130-400); RED CELL DISTRIBUTION WIDTH CV 13.5 % (11.5-14.5); RED CELL DISTRIBUTION WIDTH SD 44.1 fL (36.4-46.3); WHITE BLOOD COUNT 7.52 K/uL (4.8-10.8)
[2018-02-10 23:06] LABS: INR 1.1 (0.9-1.1); PTT PATIENT 28.2 SECONDS (21.0-31.0)
[2018-02-10 23:16] LABS: BLOOD UREA NITROGEN 26 mg/dl (7-18); CALCIUM 9.1 mg/dl (8.5-10.1); CARBON DIOXIDE 26 mmol/L (21-32); CREATININE 0.88 mg/dl (0.60-1.20); GLUCOSE 112 mg/dl (70-99); POTASSIUM 3.9 mmol/L (3.5-5.1); SODIUM 144 mmol/L (136-145)
[2018-02-10 23:21] LABS: CKMB 3.7 ng/ml (0.5-3.6)
[2018-02-10] MEDS ORDERED: CLOP1TAB15 PO (23:57)
[2018-02-10] MEDS ORDERED: ENTA200T PO (23:59)
[2018-02-11] MEDS ORDERED: SENNTAB23 PO (00:03)
--- NOTE | 2018-02-11 00:37 | EMERGENCY ROOM VISIT NOTE ---
History Report prepared by Logan: aDy Todd Under the Supervision of: Dr. Washington Canchola D.O. First contact with patient: 22:05 Chief Complaint: CVA SYMPTOMS Stated Complaint: STROKE/CVA Nursing Triage Summary: refer to triage note History of Present Illness The patient is a 77 year old female who presents to the Emergency Room with persistent right sided weakness starting CUSTOMER RESOLUTION SPECIALIST. The patient presents to the ED by EMS from home. Her last known well time was 1999. Per EMS patient was found by daughter she was unresponsive. She was unresponsive and had right sided facial droop and RUE weakness. The patient was here 2-3 weeks ago with altered mental status and diagnosed with a TIA. She was recently started on Plavix. She denies any headache, chest pain, or abdominal pain/shakes head no when asked. She has a history of Parkinson's. The history is limited secondary to the patient's aphasia. Source of History: patient, EMS History Limited By: aphasia Onset: CUSTOMER RESOLUTION SPECIALIST Position: other (right sided) Quality: other (weakness) Timing: other (persistent) Associated Symptoms: No headache, No chest pain, No abdominal pain Review of Systems Limited secondary to patient's aphasia. Past Medical & Surgical Medical Problems: (1) Constipation (2) Dysarthria (3) Parkinson's disease (4) TIA (transient ischemic attack) Surgical Problems: (1) Hx of appendectomy (2) Hx of cholecystectomy Family History Noncontributory secondary to age. Social History Smoking Status: Never Smoker Alcohol Use: none Drug Use: none Marital Status: Housing Status: lives with family Occupation Status: disabled Current/Historical Medications Scheduled Amantadine Hcl (Symmetrel), 1 TAB PO Q12 Carbidopa/Levodopa (Sinemet 25MG/100MG), 2 TAB PO QID Clonazepam (Klonopin), 2 MG PO HS Clopidogrel (Plavix), 75 MG PO 0600 Clopidogrel Bisulfate (Clopidogrel), 75 MG PO QAM Diphenhydramine Hcl (Benadryl Allergy), 50 MG PO HS Entacapone (Comtan), 200 MG PO QID Entacapone (Comtan), 200 MG PO 0600 Gabapentin (Neurontin), 300 MG PO BID Oxybutynin Chloride (Ditropan), 1 TAB PO TID Pimavanserin Tartrate (Nuplazid), 17 MG PO BID Quetiapine Fumarate (Seroquel), 25 MG PO HS Rotigotine (Neupro), 1 MG TOP 1000 Sennosides-Docusate Sodium (Stool Softener), 1 TAB PO 1000 Allergies Coded Allergies: Flu Virus Vaccine (Unverified Allergy, Mild, UNSURE, 02/11/18) Physical Exam Vital Signs Date Time Temp Pulse Resp B/P (MAP) Pulse Ox O2 Delivery O2 Flow Rate FiO2 02/11/18 00:00 71 18 166/92 98 Room Air 02/10/18 23:30 72 18 181/90 100 Room Air 02/10/18 23:15 69 18 159/84 100 Nasal Cannula 2.0 02/10/18 22:32 98 Room Air 02/10/18 22:21 73 02/10/18 22:20 36.1 90 18 179/91 97 Room Air Physical Exam GENERAL: Lying in stretcher, disheveled, chronically ill appearing, moderate distress, on nasal cannula EYE EXAM: normal conjunctiva. PERRL and EOM's intact. OROPHARYNX: no exudate, no erythema, lips, buccal mucosa, and tongue normal and mucous membranes are moist NECK: supple, no nuchal rigidity, no adenopathy, non-tender LUNGS: Clear to auscultation. Normal chest wall mechanics HEART: no murmurs, S1 normal and S2 normal ABDOMEN: abdomen soft, non-tender, normo-active bowel sounds, no masses, no rebound or guarding. BACK: Back is symmetrical on inspection and there is no deformity, no midline tenderness, no CVA tenderness. SKIN: no rashes and no bruising UPPER EXTREMITIES: upper extremities are grossly normal. LOWER EXTREMITIES: No pitting edema. NEURO EXAM: Eyes are open, able to intermittently moan and follow commands, no focal deficit in the upper or lower extremities, persistent twitching of the right side of face Medical Decision & Procedures ER Provider Diagnostic Interpretation: X-ray: I interpreted the following studies. Chest: Portable AP upright 1 view: no focal infiltrate, no pneumothorax. Radiology results as stated below per my review and the radiologist's interpretation: HEAD WITHOUT CONTRAST (CT) CLINICAL HISTORY: 77 years-old Female presenting with Stroke. TECHNIQUE: Multidetector CT imaging of the head was performed without the use of intravenous contrast. IV contrast: None. A dose lowering technique was used consistent with the principles of ALARA (as low as reasonably achievable). COMPARISON: 01/06/2018. CT DOSE (mGy.cm): The estimated cumulative dose is 749.40 mGy.cm. FINDINGS: Division Engineer topogram: Unremarkable. Ventricles and sulci normal in size. 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 Brain parenchyma normal in appearance with preserved lawson-white differentiation. No mass effect or midline shift. No hemorrhage or acute territorial infarct. No extra-axial fluid collection. Paranasal sinuses and mastoid air cells clear. Calvarium intact. IMPRESSION: 1. No significant change compared to the prior study. No acute intracranial abnormality. No hemorrhage. Electronically signed by: Remington Cedeño M.D. 02/10/2018 10:34 PM Dictated Date/Time: 02/10/2018 10:31 PM Laboratory Results 02/10/18 22:23 Red Blood Count 4.82, Mean Corpuscular Volume 89.2, Mean Corpuscular Hemoglobin 30.5, Mean Corpuscular Hemoglobin Concent 34.2, Mean Platelet Volume 9.4, Neutrophils (%) (Auto) 72.2, Lymphocytes (%) (Auto) 17.3, Monocytes (%) (Auto) 9.4, Eosinophils (%) (Auto) 0.7, Basophils (%) (Auto) 0.3, Neutrophils # (Auto) 5.43, Lymphocytes # (Auto) 1.30, Monocytes # (Auto) 0.71, Eosinophils # (Auto) 0.05, Basophils # (Auto) 0.02 02/10/18 21:50 Test 02/10/18 21:50 02/10/18 22:23 02/10/18 22:29 Anion Gap 6.0 mmol/L (3-11) Est Creatinine Clear Calc Drug Dose 37.2 ml/min Estimated GFR () 72.4 Estimated GFR (Non- 62.5 BUN/Creatinine Ratio 30.2 (10-20) Calcium Level 9.1 mg/dl (8.5-10.1) Magnesium Level 2.5 mg/dl (1.8-2.4) Total Creatine Kinase 112 U/L (26-192) Creatine Kinase MB 3.7 ng/ml (0.5-3.6) Creatine Kinase MB Ratio 3.3 (0-3.0) Troponin I < 0.015 ng/ml (0-0.045) White Blood Count 7.52 K/uL (4.8-10.8) Red Blood Count 4.82 M/uL (4.2-5.4) Hemoglobin 14.7 g/dL (12.0-16.0) Hematocrit 43.0 % (37-47) Mean Corpuscular Volume 89.2 fL (80-100) Mean Corpuscular Hemoglobin 30.5 pg (25-34) Mean Corpuscular Hemoglobin Concent 34.2 g/dl (32-36) Platelet Count 254 K/uL (130-400) Mean Platelet Volume 9.4 fL (7.4-10.4) Neutrophils (%) (Auto) 72.2 % Lymphocytes (%) (Auto) 17.3 % Monocytes (%) (Auto) 9.4 % Eosinophils (%) (Auto) 0.7 % Basophils (%) (Auto) 0.3 % Neutrophils # (Auto) 5.43 K/uL (1.4-6.5) Lymphocytes # (Auto) 1.30 K/uL (1.2-3.4) Monocytes # (Auto) 0.71 K/uL (0.11-0.59) Eosinophils # (Auto) 0.05 K/uL (0-0.5) Basophils # (Auto) 0.02 K/uL (0-0.2) RDW Standard Deviation 44.1 fL (36.4-46.3) RDW Coefficient of Variation 13.5 % (11.5-14.5) Immature Granulocyte % (Auto) 0.1 % Immature Granulocyte # (Auto) 0.01 K/uL (0.00-0.02) Prothrombin Time 11.3 SECONDS (9.0-12.0) Prothromb Time International Ratio 1.1 (0.9-1.1) Activated Partial Thromboplast Time 28.2 SECONDS (21.0-31.0) Partial Thromboplastin Ratio 1.1 Bedside Prothrombin Time INR 1.2 (0.9-1.1) Bedside Glucose 159 mg/dl (70-90) Laboratory results per my review. Medications Administered Medications (Trade) Dose Ordered Sig/Shreyas Route Start Time Stop Time Status Last Admin Dose Admin Sodium Chloride 1,000 ml @ 50 mls/hr Q20H IV 02/10/18 22:05 03/12/18 22:04 02/10/18 23:15 50 MLS/HR ECG Per My Interpretation Indication: weakness Rate (beats per minute): 71 Rhythm: sinus rhythm Findings: no ectopy, other (normal axis) ED Course ED COURSE: Vital signs were reviewed and showed hypertension. The patients medical record was reviewed The above diagnostic studies were performed and reviewed. ED treatments and interventions as stated above. 2205: Sodium Chloride 1000 ml @ 50 mls/hr IV. 2211: The patient was evaluated in room B1. A complete history and physical examination was performed. 2220: I discussed the patient's case with Dr. Moya, [facility] neurology telemedicine. He will evaluate the patient. 2244: I reevaluated the patient. Dr. Moya is evaluating the patient. 2350: Upon reevaluation, the patient is stable. I discussed my findings with the patient and family and they understand and agree with the treatment plan. Based on the patients age, coexisting illnesses, exam and lab findings the decision to treat as an inpatient was made. The patient remained stable while under my care. The patient will be evaluated for further management. 2356: I reviewed the patient's case with Dr. Lr, [facility] hospitalist. He will evaluate the patient for further management. Medical Decision Differential Diagnosis includes but is not limited to ischemic Stroke, hemorrhagic stroke, bells palsy, mass, neoplasm, migraine headache, seizure, subarachnoid hemorrhage, TIA, and transient global amnesia. Patient is a 77-year-old female who is brought in by EMS with last known well 8 PM for possible stroke. Per report she had a complete right-sided deficit and was a phasic. Upon presentation to the ER patient is nonverbal but nonfocal in the upper or lower extremities. CBC along with BMP and troponin was unremarkable. BSG was slightly elevated. INR was unremarkable. Straight cath was ordered but not obtained. CT head was negative. Chest x-ray unremarkable. I updated family at bedside. Tele-stroke was used and they do not believe that this consistent with a CVA and recommend an MRI. TPA was drawn up initially per the request of the [facility] stroke physician. Patient family were updated at bedside. Only focal deficit at this point is her speech. This is consistent with her previous presentation. She was updated and admitted to internal medicine for further workup. Medication Reconcilliation Current Medication List: was personally reviewed by me Blood Pressure Screening Patient's blood pressure: Elevated blood pressure Blood pressure disposition: Elevated BP felt to be situational Consults Time Called: 2214 Consulting Physician: Dr. Moya, [facility] neurology telemedicine Returned Call: [phone] I discussed the patient's case with him. He will evaluate the patient. Additional Consults: Time Called: [phone] Consulted Physician: Dr. Lr, [facility] hospitalist Returned Call: [phone] Additional Comments: I reviewed the patient's case with him. He will evaluate the patient for further management. Impression Primary Impression: Altered mental status Scribe Attestation The scribe's documentation has been prepared under my direction and personally reviewed by me in its entirety. I confirm that the note above accurately reflects all work, treatment, procedures, and medical decision making performed by me. Departure Information Dispostion Being Evaluated By Hospitalist Referrals Christine Her, C.R.N.P. (PCP) Forms WORK / SCHOOL INSTRUCTIONS, HOME CARE DOCUMENTATION FORM, IMPORTANT VISIT INFORMATION Patient Instructions My [facility] Stroke History Time Last Known Well 1999 Stroke t-PA Criteria Reviewed Does NOT meet criteria for t-PA Reason t-PA Not Given Treatment not indicated Problem Qualifiers Primary Impression: Altered mental status Altered mental status type: unspecified Qualified Codes: R41.82 - Altered mental status, unspecified
[2018-02-11] MEDS ORDERED: SODIUM CHLORIDE 0.9% 1000ML 1,000 ML IV SCH (01:22)
[2018-02-11] MEDS ORDERED: PHARMACIST DISCHARGE MED REC CONSULT PRN (01:30)
[2018-02-11] MEDS ORDERED: LORAZEPAM 2 MG/ML 1 ML VIAL IV STA (01:48)
--- NOTE | 2018-02-11 01:51 | History and Physical ---
History & Physical Date & Time of Service: Feb 11, 2018 at 01:33 Chief Complaint: Stroke/Cva Primary Care Physician: Christine Her, MicahRMichaelNMichaelPMichael History of Present Illness Source: patient, family Myers is a 77 year old female with a PMH of TIA, and Parkinsons disease that has presented with persistent R sided weakness prior to arrival. Per EMS she was found by her daughter unresponsive with a right sided facial droop and RUE weakness. Her last known well time was 8pm. She denies any headache, difficulty swallowing, lower extremity weakness, chest pain, palpitations, dizziness, pre-syncope The patient was here 2-3 weeks ago with altered mental status and was diagnosed with a TIA. She was recently started on Plavix. She has a history of Parkinsons disease and lives with her family. She had a normal head CT scan in the ED and her upper extremity weakness had resolved. Telestroke doctor was consulted who suggested a MRI of the brain. TPA was going to be administered but due to her improving upper extremity weakness it was decided to hold off on TPA She had an US of her carotids at her prior admission which was normal and she had an echo which showed borderline LVH, grade 1 DD, left atrial enlargement. She was planned to follow up with neurology as an outpatient. Past Medical/Surgical History Medical Problems: (1) Altered mental status (2) Altered mental status (3) Closed fracture of sternal end of clavicle (4) Constipation (5) Dysarthria (6) Fecal impaction (7) Nasal fracture (8) Parkinson's disease (9) Right rib fracture (10) TIA (transient ischemic attack) (11) Urinary frequency (12) UTI (urinary tract infection) Surgical Problems: (1) Hx of appendectomy (2) Hx of cholecystectomy Family History Patient reports no known family medical history. Social History Smoking Status: Never Smoker Smokeless Tobacco Use: No Alcohol Use: none Drug Use: none Marital Status: Housing status: lives with family Occupational Status: disabled Immunizations History of Influenza Vaccine: Unknown History of Tetanus Vaccine?: Unknown History of Pneumococcal: Unknown History of Hepatitis B Vaccine: Unknown Allergies Coded Allergies: Flu Virus Vaccine (Unverified Allergy, Mild, UNSURE, 02/11/18) Home Medications Scheduled Amantadine Hcl (Symmetrel), 1 TAB PO Q12 Atorvastatin (Lipitor), 40 MG PO QAM Carbidopa/Levodopa (Sinemet 25MG/100MG), 2 TAB PO QID Clonazepam (Klonopin), 2 MG PO HS Clopidogrel (Plavix), 75 MG PO 0600 Diphenhydramine Hcl (Benadryl Allergy), 50 MG PO HS Entacapone (Comtan), 200 MG PO QID Entacapone (Comtan), 200 MG PO 0600 Gabapentin (Neurontin), 300 MG PO BID Lisinopril (Zestril), 5 MG PO DAILY Oxybutynin Chloride (Ditropan), 1 TAB PO TID Pimavanserin Tartrate (Nuplazid), 17 MG PO BID Rotigotine (Neupro), 1 MG TOP 1000 Sennosides-Docusate Sodium (Stool Softener), 1 TAB PO 1000 Review of Systems Constitutional: No fever, No chills, No sweats Respiratory: No cough, No shortness of breath Cardiovascular: No chest pain, No edema, No palpitations Abdomen: No pain, No nausea, No vomiting Musculoskeletal: No joint pain, No muscle pain Genitourinary - Female: No dysuria, No urinary frequency, No urinary urgency, No urinary incontinence Neurologic: + paralysis, + weakness Physical Exam Vital Signs Date Time Temp Pulse Resp B/P (MAP) Pulse Ox O2 Delivery O2 Flow Rate FiO2 02/11/18 01:02 69 18 168/68 98 Room Air 02/11/18 00:30 71 18 173/93 98 Room Air 02/11/18 00:00 71 18 166/92 98 Room Air 02/10/18 23:30 72 18 181/90 100 Room Air 02/10/18 23:15 69 18 159/84 100 Nasal Cannula 2.0 02/10/18 22:32 98 Room Air 02/10/18 22:21 73 02/10/18 22:20 36.1 90 18 179/91 97 Room Air General Appearance: WD/WN, + mild distress, + pertinent finding (lips tremoring and patient appears old and frail) Head: normocephalic, atraumatic Eyes: normal inspection, PERRL ENT: pharynx normal, + pertinent finding (dentures in place) Neck: supple, no adenopathy, no JVD, no carotid bruits, trachea midline Respiratory/Chest: lungs clear, no respiratory distress, no accessory muscle use Cardiovascular: regular rate, rhythm, no murmur, normal peripheral pulses Abdomen/GI: normal bowel sounds, non tender, soft Extremities/Musculoskelatal: normal inspection, no calf tenderness, no pedal edema, non-tender Neurologic/Psych: director of strategic sourcing II-XII nml as tested, no motor/sensory deficits, oriented x 3, + pertinent finding (patient non aphasic but speaking very softly ) Skin: normal color, warm/dry, no rash Diagnostics Laboratory Results Results Past 24 Hours Test 02/10/18 21:50 02/10/18 22:23 02/10/18 22:29 02/11/18 00:55 Range/Units Sodium Level 144 136-145 mmol/L Potassium Level 3.9 3.5-5.1 mmol/L Chloride Level 113 98-107 mmol/L Carbon Dioxide Level 26 21-32 mmol/L Anion Gap 6.0 3-11 mmol/L Blood Urea Nitrogen 26 7-18 mg/dl Creatinine 0.88 0.60-1.20 mg/dl Est Creatinine Clear Calc Drug Dose 37.2 ml/min Estimated GFR () 72.4 Estimated GFR (Non- 62.5 BUN/Creatinine Ratio 30.2 10-20 Random Glucose 112 70-99 mg/dl Calcium Level 9.1 8.5-10.1 mg/dl Magnesium Level 2.5 1.8-2.4 mg/dl Total Creatine Kinase 112 26-192 U/L Creatine Kinase MB 3.7 0.5-3.6 ng/ml Creatine Kinase MB Ratio 3.3 0-3.0 Troponin I < 0.015 0-0.045 ng/ml White Blood Count 7.52 4.8-10.8 K/uL Red Blood Count 4.82 4.2-5.4 M/uL Hemoglobin 14.7 12.0-16.0 g/dL Hematocrit 43.0 37-47 % Mean Corpuscular Volume 89.2 80-100 fL Mean Corpuscular Hemoglobin 30.5 25-34 pg Mean Corpuscular Hemoglobin Concent 34.2 32-36 g/dl Platelet Count 254 130-400 K/uL Mean Platelet Volume 9.4 7.4-10.4 fL Neutrophils (%) (Auto) 72.2 % Lymphocytes (%) (Auto) 17.3 % Monocytes (%) (Auto) 9.4 % Eosinophils (%) (Auto) 0.7 % Basophils (%) (Auto) 0.3 % Neutrophils # (Auto) 5.43 1.4-6.5 K/uL Lymphocytes # (Auto) 1.30 1.2-3.4 K/uL Monocytes # (Auto) 0.71 0.11-0.59 K/uL Eosinophils # (Auto) 0.05 0-0.5 K/uL Basophils # (Auto) 0.02 0-0.2 K/uL RDW Standard Deviation 44.1 36.4-46.3 fL RDW Coefficient of Variation 13.5 11.5-14.5 % Immature Granulocyte % (Auto) 0.1 % Immature Granulocyte # (Auto) 0.01 0.00-0.02 K/uL Prothrombin Time 11.3 9.0-12.0 SECONDS Prothromb Time International Ratio 1.1 0.9-1.1 Activated Partial Thromboplast Time 28.2 21.0-31.0 SECONDS Partial Thromboplastin Ratio 1.1 Bedside Prothrombin Time INR 1.2 0.9-1.1 Bedside Glucose 159 70-90 mg/dl Urine Color DK YELLOW Urine Appearance CLEAR CLEAR Urine pH 6.0 4.5-7.5 Urine Specific [place] 1.023 1.000-1.030 Urine Protein NEG NEG Urine Glucose (UA) NEG NEG Urine Ketones TRACE NEG Urine Occult Blood NEG NEG Urine Nitrite NEG NEG Urine Bilirubin NEG NEG Urine Urobilinogen NEG NEG Urine Leukocyte Esterase MODERATE NEG Urine WBC (Auto) 10-30 0-5 /hpf Urine RBC (Auto) 0-4 0-4 /hpf Urine Hyaline Casts (Auto) 1-5 0-5 /lpf Urine Epithelial Cells (Auto) >30 0-5 /lpf Urine Bacteria (Auto) NEG NEG Test 02/11/18 01:22 Range/Units Microbiology Results 02/11/18 Urine Culture, Received Pending Diagnostic Radiology IMPRESSION: 1. No significant change compared to the prior study. No acute intracranial abnormality. No hemorrhage. EKG Rate (beats per minute): 71 Rhythm: sinus rhythm Findings: no ectopy, other (normal axis) Impression Assessment and Plan 77 year old female with a PMH of TIA and Parkinsons disease presented to [facility] with left sided weakness, R sided facial droop and aphasia. Stroke - order MRI - echo and carotids done at prior admission - consult speech, hold meds until cleared - IVF at maintenance rate - consult neurology - hold plavix - consult PT/OT - lipid and Hba1c done at prior admission. Both wnl - Blood pressure recommendations while in hospital 175/95-150/80 (MAPS 90-110) - Lopressor 5mg of systolic >180 and HR >60, hydralazine 10mg for systolic blood pressure >180 and HR <60 - neuro-checks q4 Parkinsons Dementia - hold sinemet - hold nuplazid - hold seroquel - hold amantadine Overactive Bladder - hold oxybutynin DVT - SCD FULL CODE Attending addendum: I have physically seen this patient, have supervised the medical residents activities, and agree with the H&P unless as otherwise noted. Assessment and Plan: Acute CVA-- Order MRI brain without contrast. Will not repeat echo and carotid Dopplers performed at previous admission. Consult speech therapy/physical therapy and Occupational Therapy. N.p.o. until assessed by speech. Normal saline at 100 mils per hour. Permissive hypertension. Neurochecks every 4 hours per protocol. Consult neurology. Parkinson's dementia-- Hold all oral medications until cleared by speech: Sinemet, Seroquel, amantadine and nuplazid. Resuscitation Status VTE Prophylaxis Will order VTE Prophylaxis: Yes
[2018-02-11] MEDS ORDERED: HydrALAZINE HCL 20 MG/ML VIAL IV. PRN (02:15)
[2018-02-11] MEDS ORDERED: METOPROLOL TARTRATE 1 MG/ML VIAL IV PRN (02:15)
[2018-02-11 02:45] VITALS: BP 134/73; PULSE 74; TEMP 37; O2SAT 97; BMI 17.7
[2018-02-11] MEDS: SODIUM CHLORIDE 0.9% 1000ML 1,000 ML IV SCH ×2 (03:39→14:07)
[2018-02-11] MEDS ORDERED: CLOPIDOGREL BISULFATE 75 MG TAB PO SCH (06:00)
--- NOTE | 2018-02-11 07:07 | DIAGNOSTIC IMAGING REPORT ---
CHEST ONE VIEW PORTABLE HISTORY: Stroke COMPARISON: Chest 01/06/2018. FINDINGS: The lungs are clear. Cardiac silhouette is normal in size. No pleural effusions. No pneumothorax. IMPRESSION: No acute process. Electronically signed by: Arash Veliz M.D. 02/11/2018 7:05 AM Dictated Date/Time: 02/11/2018 7:05 AM
--- NOTE | 2018-02-11 07:18 | DIAGNOSTIC IMAGING REPORT ---
Brain MRI WITHOUT CONTRAST HISTORY: Facial droop. Right arm paralysis. Stroke TECHNIQUE: Multiplanar multisequence MRI of the brain was performed without the use of contrast. COMPARISON STUDY: Head CT 02/10/2018. Brain MRI 01/07/2018. FINDINGS: No areas of restricted diffusion to suggest acute infarction. Bubbly secretions within the right maxillary sinus. The mastoid air cells are clear. The major vascular flow-voids are well-maintained. Mild atrophy and microvascular ischemic changes are again noted. No significant change in the prominence of the left frontal extra-axial space and left temporal bone thickening. There is no mass, hematoma, or midline shift. IMPRESSION: 1. No acute intracranial abnormality. 2. Bubbly secretions within the right maxillary sinus. This favors acute sinusitis. 3. No change in the prominence of the left frontal extra-axial space and left calvarial thickening. Electronically signed by: Arash Veliz M.D. 02/11/2018 7:16 AM Dictated Date/Time: 02/11/2018 7:12 AM
[2018-02-11 07:37] VITALS: BP 143/69; PULSE 70; TEMP 37.1; O2SAT 98
[2018-02-11 08:41] LABS: HEMOGLOBIN A1C 5.2 % (4.5-5.6)
[2018-02-11] MEDS ORDERED: ATORVASTATIN 40 MG TAB PO SCH (09:00)
[2018-02-11] MEDS ORDERED: GABAPENTIN 300 MG CAP PO SCH ×2 (09:00→22:00)
[2018-02-11] MEDS ORDERED: CARBIDOPA/LEVODOPA 25/100MG TAB PO SCH (09:00)
[2018-02-11] MEDS ORDERED: OXYBUTYNIN CHLORIDE 5 MG TAB PO SCH ×2 (09:00→14:00)
[2018-02-11] MEDS ORDERED: AMANTADINE HCL 100 MG CAP PO SCH ×2 (09:00→21:00)
[2018-02-11] MEDS ORDERED: PIMAVANSERIN TARTRATE 17 MG PO SCH (09:00)
[2018-02-11] MEDS ORDERED: NON-FORMULARY MEDICATION (Entacapone (Comtan) 200 MG) PO SCH (09:00)
--- NOTE | 2018-02-11 09:16 | Neurology Consultation ---
Neurology Consultation Date of Consultation: Feb 11, 2018. Attending Physician: Washington Bejarano D.O. Primary Care Physician: Christine Her C.RMichaelNPerry Reason for Consultation: TIA History of Present Illness Source: hospital records The patient is a 77-year-old female who follows with mt for moderate to advanced Parkinson's disease. She was admitted to the hospital last month for a TIA and was started on Plavix. She has been readmitted for evaluation of a another stroke-like episode. The patient was found by her daughter unresponsive , approximately 2 hours prior to her assessment in the emergency department. She was noted to have right-sided weakness and aphasia. Her symptoms significantly improved while in the emergency department and tPA was not considered necessary. A CT of the head was negative for hemorrhage or acute process. An electrocardiogram reveals a sinus rhythm, 71 beats per minute. A brain MRI was negative for acute or subacute stroke. I reviewed the images as well as the radiologist's interpretation of this test. Imaging completed during this patient's hospitalization last month was reviewed as well. A carotid ultrasound was negative for hemodynamically significant stenosis. An MRA of the head and neck was also completed. No flow appreciated at the distal right vertebral artery. No hemodynamically significant stenosis of the carotid system bilaterally. Her Parkinson's disease medications and Plavix are on hold. Past Medical/Surgical History Medical Problems: (1) Altered mental status Status: Acute (2) Altered mental status Status: Acute (3) Altered mental status Status: Acute (4) Right rib fracture Status: Acute (5) UTI (urinary tract infection) Status: Acute Family History Noncontributory Social History Smoking Status: Never smoker Drug Use: none Marital Status: Housing Status: lives with family Occupation Status: disabled Allergies Coded Allergies: Flu Virus Vaccine (Unverified Allergy, Mild, UNSURE, 02/11/18) Current Inpatient Medications Current Inpatient Medications Medications (Trade) Dose Ordered Sig/Shreyas Route Start Time Stop Time Status Last Admin Dose Admin Miscellaneous Information (Pharmacist Discharge Med Rec Consult) 1 ea UD PRN N/A 02/11/18 01:30 03/13/18 01:29 Metoprolol Tartrate (Lopressor Iv) 5 mg Q4H PRN IV 02/11/18 02:15 03/13/18 02:14 Hydralazine HCl (HydrALAZINE INJ) 10 mg PRN PRN IV. 02/11/18 02:15 03/13/18 02:14 Sodium Chloride 1,000 ml @ 90 mls/hr Q11H7M IV 02/11/18 03:15 03/13/18 03:14 02/11/18 03:39 90 MLS/HR Rotigotine (Neupro 2mg/24 Hr) 1 patch DAILY@1000 TD 02/11/18 10:00 03/13/18 09:59 Non-Formulary Medication (Entacapone (Comtan)) 200 mg 0600 PO 02/11/18 09:00 03/13/18 08:59 UNV Carbidopa/Levodopa (Sinemet 25/ 100MG Tab) 2 tab QID PO 02/11/18 09:00 03/13/18 08:59 UNV Review of Systems Constitutional: No fever chills Eyes: No vision loss or diplopia ENT: No hearing loss or vertigo Cardiovascular: No chest pain or palpitations Respiratory: No coughing or shortness of breath Neurological as per history of present illness Psychiatric: Significant for insomnia A full 10 point review of systems was obtained from this patient with pertinent positives and negatives described in the history of present illness and otherwise listed above. All remaining systems reviewed and are negative. Physical Exam Vital Signs (Past 24 Hrs): Date Time Temp Pulse Resp B/P (MAP) Pulse Ox O2 Delivery O2 Flow Rate FiO2 02/11/18 07:37 37.1 70 18 143/69 (93) 98 Room Air 02/11/18 02:45 37.0 74 16 134/73 97 Room Air 02/11/18 02:00 73 18 172/80 97 Room Air 02/11/18 01:02 69 18 168/68 98 Room Air 02/11/18 00:30 71 18 173/93 98 Room Air 02/11/18 00:00 71 18 166/92 98 Room Air 02/10/18 23:30 72 18 181/90 100 Room Air 02/10/18 23:15 69 18 159/84 100 Nasal Cannula 2.0 02/10/18 22:32 98 Room Air 02/10/18 22:21 73 02/10/18 22:20 36.1 90 18 179/91 97 Room Air Patient is a thin elderly female. She is lying comfortably in bed. She is hypophonic and bradykinetic. The patient is alert and oriented to person place and time. Recent and remote memory intact. Attention and concentration normal. Patient is able to name objects and repeat phrases. She exhibits a normal vocabulary. Visual gutierrez full to confrontation. Visual acuity normal. Pupils equal round react to light and accommodation. Eye movements normal. Facial sensation intact. There is no facial droop or facial weakness. Hearing intact. Palate elevates to midline. Shoulder shrug strength intact. Tongue protrudes to midline. Sensation intact in all four limbs. Deep tendon reflexes intact and symmetrical for the arms and legs. There is no dysdiadochokinesia or dysmetria of [id number] or heel to saavedra. Ophthalmoscopic examination reveals normal-appearing optic discs and posterior segments. Carotid pulses normal bilaterally, no bruits to auscultation. Gait and station cannot be tested due to safety concerns. Muscle strength and tone normal for all 4 limbs. No significant rigidity at this time. No atrophy. No resting tremor, dyskinesias, or other abnormal movements observed at this time. Laboratory Results Past 24 Hours: 02/10/18 22:23 Red Blood Count 4.82, Mean Corpuscular Volume 89.2, Mean Corpuscular Hemoglobin 30.5, Mean Corpuscular Hemoglobin Concent 34.2, Mean Platelet Volume 9.4, Neutrophils (%) (Auto) 72.2, Lymphocytes (%) (Auto) 17.3, Monocytes (%) (Auto) 9.4, Eosinophils (%) (Auto) 0.7, Basophils (%) (Auto) 0.3, Neutrophils # (Auto) 5.43, Lymphocytes # (Auto) 1.30, Monocytes # (Auto) 0.71, Eosinophils # (Auto) 0.05, Basophils # (Auto) 0.02 02/10/18 21:50 Test 02/10/18 21:50 02/10/18 22:23 02/10/18 22:29 02/11/18 00:55 Anion Gap 6.0 mmol/L (3-11) Est Creatinine Clear Calc Drug Dose 37.2 ml/min Estimated GFR () 72.4 Estimated GFR (Non- 62.5 BUN/Creatinine Ratio 30.2 (10-20) Calcium Level 9.1 mg/dl (8.5-10.1) Magnesium Level 2.5 mg/dl (1.8-2.4) Total Creatine Kinase 112 U/L (26-192) Creatine Kinase MB 3.7 ng/ml (0.5-3.6) Creatine Kinase MB Ratio 3.3 (0-3.0) Troponin I < 0.015 ng/ml (0-0.045) White Blood Count 7.52 K/uL (4.8-10.8) Red Blood Count 4.82 M/uL (4.2-5.4) Hemoglobin 14.7 g/dL (12.0-16.0) Hematocrit 43.0 % (37-47) Mean Corpuscular Volume 89.2 fL (80-100) Mean Corpuscular Hemoglobin 30.5 pg (25-34) Mean Corpuscular Hemoglobin Concent 34.2 g/dl (32-36) Platelet Count 254 K/uL (130-400) Mean Platelet Volume 9.4 fL (7.4-10.4) Neutrophils (%) (Auto) 72.2 % Lymphocytes (%) (Auto) 17.3 % Monocytes (%) (Auto) 9.4 % Eosinophils (%) (Auto) 0.7 % Basophils (%) (Auto) 0.3 % Neutrophils # (Auto) 5.43 K/uL (1.4-6.5) Lymphocytes # (Auto) 1.30 K/uL (1.2-3.4) Monocytes # (Auto) 0.71 K/uL (0.11-0.59) Eosinophils # (Auto) 0.05 K/uL (0-0.5) Basophils # (Auto) 0.02 K/uL (0-0.2) RDW Standard Deviation 44.1 fL (36.4-46.3) RDW Coefficient of Variation 13.5 % (11.5-14.5) Immature Granulocyte % (Auto) 0.1 % Immature Granulocyte # (Auto) 0.01 K/uL (0.00-0.02) Prothrombin Time 11.3 SECONDS (9.0-12.0) Prothromb Time International Ratio 1.1 (0.9-1.1) Activated Partial Thromboplast Time 28.2 SECONDS (21.0-31.0) Partial Thromboplastin Ratio 1.1 Estimated Average Glucose 103 mg/dl Hemoglobin A1c 5.2 % (4.5-5.6) Bedside Prothrombin Time INR 1.2 (0.9-1.1) Bedside Glucose 159 mg/dl (70-90) Urine Color DK YELLOW Urine Appearance CLEAR (CLEAR) Urine pH 6.0 (4.5-7.5) Urine Specific [place] 1.023 (1.000-1.030) Urine Protein NEG (NEG) Urine Glucose (UA) NEG (NEG) Urine Ketones TRACE (NEG) Urine Occult Blood NEG (NEG) Urine Nitrite NEG (NEG) Urine Bilirubin NEG (NEG) Urine Urobilinogen NEG (NEG) Urine Leukocyte Esterase MODERATE (NEG) Urine WBC (Auto) 10-30 /hpf (0-5) Urine RBC (Auto) 0-4 /hpf (0-4) Urine Hyaline Casts (Auto) 1-5 /lpf (0-5) Urine Epithelial Cells (Auto) >30 /lpf (0-5) Urine Bacteria (Auto) NEG (NEG) Impression TIA probably localizing to the left cerebral hemisphere. No evidence of acute or subacute stroke on MRI. No focal deficits on neurological examination. Recent admission for TIA, last month, no evidence for carotid embolic or cardioembolic source. History of moderate to severe Parkinson's disease. Patient is currently bradykinetic and hypophonic. She does experience moderate to severe dyskinesias related to her Parkinson's disease treatment regimen although she typically prefers to be a bit dyskinetic rather than bradykinetic. Plan Restart Plavix as well as patient's outpatient Parkinson's disease medication regimen. Discontinue Seroquel as this medication may increase the risk for stroke and TIA. Please contact me if I may be of further assistance.
[2018-02-11] MEDS ORDERED: ROTIGOTINE TD SCH (10:00)
[2018-02-11] MEDS ORDERED: ROTIGOTINE 1 MG TOP SCH (10:00)
[2018-02-11] MEDS: ENTACAPONE 200 MG TAB PO SCH ×2 (10:20→14:07)
[2018-02-11] MEDS ORDERED: AMANTADINE HCL 100 MG CAP PO ONE (10:22)
[2018-02-11] MEDS ORDERED: ATORVASTATIN 40 MG TAB PO ONE (10:22)
[2018-02-11] MEDS: CARBIDOPA/LEVODOPA 25/100MG TAB PO SCH ×2 (10:23→14:07)
[2018-02-11] MEDS ORDERED: GABAPENTIN 300 MG CAP PO ONE (10:45)
[2018-02-11 11:27] VITALS: BP 163/79; PULSE 73; TEMP 36.6; O2SAT 98
[2018-02-11] MEDS ORDERED: LPT40 PO (15:14)
[2018-02-11] MEDS ORDERED: LISI-729 PO (15:14)
[2018-02-11 15:28] VITALS: Ht 162.6 cm; Wt 46.7 kg
[2018-02-11 15:37] VITALS: BP_SYST 101; BP_SYST 163; BP_DIAS 79; PULSE 62; TEMP 36.6; O2SAT 97
[2018-02-11 16:00] VITALS: O2SAT 97
--- NOTE | 2018-02-11 16:43 | Discharge Instructions ---
Discharge Instructions Date of Service Feb 11, 2018. Admission Reason for Admission: Stroke Discharge Discharge Diagnosis / Problem: TIA Discharge Goals Goal(s): Improve disease control Activity Recommendations Activity Limitations: per Instructions/Follow-up section . Instructions / Follow-Up Instructions / Follow-Up During this admission, you were evaluated for a TIA (transient ischemic attack) which is commonly known as a "mini-stroke." As discussed, the exact reason why this happened is unknown. To decrease the chances of having another episode, we will be starting two new medications. Lipitor, 40 mg daily Lisinopril 5 mg daily As discused, the lipitor is a medication typically prescribed for cholesterol, but also used as a plaque stabilizing medication that helps to prevent plaques from splitting open and therefore triggering clot formation. Lisinopril is a blood pressure medication. This is a low dose of the medication , and as we discussed we want to help lower the blood pressure without making it too low. Dr. Escobar (neurology) also recommend that the seroquel be STOPPED due to potential increase in chance of stroke while on the medication. An appointment with [facility] neurology to serve as a second opinion will be arranged for you. You will be contacted about this appointment, likely to occur in mid-late February. If any of your symptoms worsen or return, please return to the ED for further evaluation. Risk Factors for Stroke: You can reduce your chances of stroke by working with your medical provider to adopt a healthy lifestyle. Some specific ways to lower your chance of stroke are: * If you are a smoker, now is the time to stop smoking cigarettes * If you are diabetic, improve the control of your blood sugars * Avoid excessive amounts of alcohol * Control high blood pressure * Lose weight if you are overweight * Be sure to lead an active lifestyle * Eat a healthy diet low in salt, cholesterol and fat You should know about other risk factors for stroke that you are unable to control. These include: * Age 55 years or older * Male gender * Certain racial groups: , or / * Family History of Stroke, Mini stroke or Heart Attack * Sickle Cell Disease Follow Up: It is important for you to keep your follow up appointments with your medical provider. Current Hospital Diet Patient's current hospital diet: Regular Diet Discharge Diet Recommended Diet: Regular Diet Pending Studies Studies pending at discharge: no Laboratory Results Hemoglobin A1c Test 02/10/18 22:23 Range/Units Estimated Average Glucose 103 mg/dl Hemoglobin A1c 5.2 4.5-5.6 % Lipid Panel Test 01/07/18 06:25 Range/Units Triglycerides Level 93 0-150 mg/dl Cholesterol Level 153 0-200 mg/dl HDL Cholesterol 39 mg/dl Cholesterol/HDL Ratio 3.9 LDL Cholesterol, Calculated 95 mg/dl Medical Emergencies . Who to Call and When: Medical Emergencies: Call 911 immediately if you experience any of the following warning signs and symptoms of Stroke: * Sudden numbness or weakness of the face, arm or leg, especially on one side of the body * Sudden confusion, trouble speaking or understanding * Sudden trouble seeing in one or both eyes * Sudden trouble walking, dizziness, loss of balance or coordination * Sudden severe headache with no cause Do not delay calling 911 if you experience any warning signs or symptoms of a stroke. Delay in seeking medical attention may affect what treatments can be given to you. . Non-Emergent Contact Non-Emergency issues call your: Primary Care Provider . . "Provider Documentation" section prepared by Melly Taveras. . Stroke Core Measures Reason no t-PA for Stroke: Treatment not indicated Reason no antithrom by day 2: Treatment provided - N/A Reason no antithrom at D/C: Treatment provided - N/A Reason no statin at D/C: Treatment provided - N/A Reason no anticoag w/a fib: Treatment not indicated
--- NOTE | 2018-02-11 17:24 | Discharge Summary ---
Discharge Summary Date of Service Feb 11, 2018. Discharge Summary Admission Date: Feb 11, 2018 at 01:56 Discharge Disposition: Home Principal Diagnosis: TIA Procedures: MRI brain: Brain MRI WITHOUT CONTRAST HISTORY: Facial droop. Right arm paralysis. Stroke TECHNIQUE: Multiplanar multisequence MRI of the brain was performed without the use of contrast. COMPARISON STUDY: Head CT 02/10/2018. Brain MRI 01/07/2018. FINDINGS: No areas of restricted diffusion to suggest acute infarction. Bubbly secretions within the right maxillary sinus. The mastoid air cells are clear. The major vascular flow-voids are well-maintained. Mild atrophy and microvascular ischemic changes are again noted. No significant change in the prominence of the left frontal extra-axial space and left temporal bone thickening. There is no mass, hematoma, or midline shift. IMPRESSION: 1. No acute intracranial abnormality. 2. Bubbly secretions within the right maxillary sinus. This favors acute sinusitis. 3. No change in the prominence of the left frontal extra-axial space and left calvarial thickening. Electronically signed by: Arash Veliz M.D. 02/11/2018 7:16 AM cardiac monitoring unremarkable last TIA admission ~4wks ago echo and carotids without significant findings Hemoglobin A1c Test 02/10/18 22:23 Range/Units Estimated Average Glucose 103 mg/dl Hemoglobin A1c 5.2 4.5-5.6 % Lipid Panel Test 01/07/18 06:25 Range/Units Triglycerides Level 93 0-150 mg/dl Cholesterol Level 153 0-200 mg/dl HDL Cholesterol 39 mg/dl Cholesterol/HDL Ratio 3.9 LDL Cholesterol, Calculated 95 mg/dl Consultations: neurology: Impression TIA probably localizing to the left cerebral hemisphere. No evidence of acute or subacute stroke on MRI. No focal deficits on neurological examination. Recent admission for TIA, last month, no evidence for carotid embolic or cardioembolic source. History of moderate to severe Parkinson's disease. Patient is currently bradykinetic and hypophonic. She does experience moderate to severe dyskinesias related to her Parkinson's disease treatment regimen although she typically prefers to be a bit dyskinetic rather than bradykinetic. Plan Restart Plavix as well as patient's outpatient Parkinson's disease medication regimen. Discontinue Seroquel as this medication may increase the risk for stroke and TIA. Please contact me if I may be of further assistance. <Electronically signed by Jeronimo Escobar MD> Medication Reconciliation New Medications: Lisinopril (Zestril) 5 Mg Tab 5 MG PO DAILY for 30 Days, #30 TAB Atorvastatin (Lipitor) 40 Mg Tab 40 MG PO QAM for 30 Days, #30 TAB Continued Medications: Amantadine Hcl (Symmetrel) 100 Mg Tab 1 TAB PO Q12 Carbidopa/Levodopa (Sinemet 25MG/100MG) Tab 2 TAB PO QID, 0 Refills PT TAKES 0600/1000/1400/1800 Clonazepam (Klonopin) 2 Mg Tab 2 MG PO HS Clopidogrel (Plavix) 75 Mg Tab 75 MG PO 0600, TAB Diphenhydramine Hcl (Benadryl Allergy) 25 Mg Tab 50 MG PO HS SLEEP AID Entacapone (Comtan) 200 Mg Tab 200 MG PO QID PT TAKES 0600/1000/1400/1800 Entacapone (Comtan) 200 Mg Tab 200 MG PO 0600, TAB Gabapentin (Neurontin) 300 Mg Cap 300 MG PO BID PT TAKE ONE TABLET AT 0600 AND ONE TABLET AT 2200 Oxybutynin Chloride (Ditropan) 5 Mg Tab 1 TAB PO TID 0600/1400/1800 Pimavanserin Tartrate (Nuplazid) 17 Mg Tab 17 MG PO BID 0600/1800 Rotigotine (Neupro) 1 Mg/24 Hr Dis 1 MG TOP 1000 TAKE 1000 Sennosides-Docusate Sodium (Stool Softener) 1 Tab Tab 1 TAB PO 1000 takes 1000 daily softgel Discontinued Medications: Clopidogrel Bisulfate (Clopidogrel) 75 Mg Tab 75 MG PO QAM for 30 Days, #30 TAB Quetiapine Fumarate (Seroquel) 25 Mg Tab 25 MG PO HS Discharge Exam Physical Exam: General Appearance: no apparent distress Eyes: EOMI ENT: hearing grossly normal Neck: trachea midline Respiratory/Chest: no respiratory distress, no accessory muscle use Extremities: normal inspection Neurologic/Psychiatric: dna sequencing associate II-XII nml as tested, alert, + pertinent finding (no focal neuro deficits) Skin: normal color Hospital Course recurrent TIA -no stroke -recent TIA - aspirin changed to plavix - similar sx --> resolved. initiate lisinopril (BPs have been quite variable - start @ 5mg, BMP next week, titrate as tolerated, discussed orthostasis), initiate atorvastatin 40mg (plaque stabilization) (follow up in office for tolerability) -family requests tertiary neurology evaluation -- asked MIA taylor to facilitate - although also discussed stroke management in detail with family -stable for home Total Time Spent: Less than 30 minutes This includes examination of the patient, discharge planning, medication reconciliation, and communication with other providers. Discharge Instructions Please refer to the electronic Patient Visit Report (Discharge Instructions) for additional information. Additional Copies To Jeronimo Escobar M.D.; Christine Her, C.R.NMichaelP.
--- NOTE | 2018-02-11 17:46 | ECHOCARDIOGRAM REPORT ---
*NOTICE TO RECEIVING REPUBLICAN AGENCY This information is strictly Confidential and protected under [place] law. [place] law prohibits you from making any further disclosure of this information unless further disclosure is expressly permitted by the written consent of the person to whom it pertains or is authorized by law. A general authorization for the release of medical or other information is not sufficient for this purpose. Hospital accepts no responsibility if the information is made available to any other person, INCLUDING THE PATIENT. Interpretation Summary * Name: CHASITY TOTH Study Date: 02/11/2018 06:47 AM BP: 134/73 mmHg * Patient Location: [id number].[id number]\E206\[id number]\1 HR: 67 * : 1940 (M/d/yyy) Gender: Female Height: 60 in * Age: 77 yrs Ethnicity: [place] Weight: 110 lb * Ordering Physician: Ubaldo Sahu * Referring Physician: Self, Referred * Performed By: Clarisa Parekh [facility] * * Reason For Study: STROKE * BSA: 1.4 m2 * -- Conclusions -- * 1. Normal left ventricular size and systolic function. EF 60-65%. No regional wall motion abnormalities. No left ventricular hypertrophy. Type 1 diastolic dysfunction. * 2. No visualized ASD or PFO. There was no visualized right to left inter atrial shunt following agitated saline injection. * 3. No significant valvular abnormalities visualized. * 4. Normal estimated right ventricular systolic pressure. * 5. Compared to prior study on 01/07/2018, reported findings are similar. Current study has better image quality. Procedure Details * A complete two-dimensional transthoracic echocardiogram was performed (2D, M-mode, Doppler and color flow Doppler). * A saline contrast injection was performed to assess for cardiac shunting. * The injection was performed through an intravenous line in the left arm. * The attending nurse who injected the saline contrast was DANILO FRIEDMAN, MIA. * A total of 10 cc of agitated saline was given. Left Ventricle * Normal left ventricular size and systolic function. EF 60-65%. No regional wall motion abnormalities. No left ventricular hypertrophy. Type 1 diastolic dysfunction. Right Ventricle * The right ventricle is normal in size and function. * The right ventricular systolic function is normal as assessed by tricuspid annular plane systolic excursion (TAPSE) (normal >1.5 cm). Atria * The left atrial size is normal. * Right atrial size is normal. * No visualized ASD or PFO. There was no visualized right to left inter atrial shunt following agitated saline injection. Mitral Valve * The mitral valve leaflets appear normal. There is no evidence of stenosis, fluttering, or prolapse. * There is trace mitral regurgitation. Tricuspid Valve * The tricuspid valve is not well visualized, but is grossly normal. * There is no tricuspid stenosis. * There is trace tricuspid regurgitation. Aortic Valve * The aortic valve is trileaflet. * No hemodynamically significant valvular aortic stenosis. * Trace aortic regurgitation. Pulmonic Valve * The pulmonary valve is inadequately visualized, but the Doppler data is adequate for interpretation. * There is no pulmonic valvular stenosis. * There is no significant pulmonary regurgitation. Great Vessels * The aortic root is normal size. Pericardium/Pleural * There is no pericardial effusion. Great Vessels * Normal inferior vena cava size and collapsability with sniff indicates a normal right atrial pressure of 3 mmHg MMode 2D Measurements and Calculations IVSd 1.0 cm LVIDd 4.1 cm LVIDs 2.7 cm LVPWd 0.86 cm IVS/LVPW 1.2 FS 35.3 % EDV(Teich) 76.1 ml ESV(Teich) 26.5 ml EF(Teich) 65.1 % EDV(cubed) 71.2 ml ESV(cubed) 19.3 ml EF(cubed) 72.9 % LV mass(C)d 122.0 grams LV mass(C)dI 84.2 grams/m\S\2 SV(Teich) 49.6 ml SI(Teich) 34.2 ml/m\S\2 SV(cubed) 51.9 ml SI(cubed) 35.8 ml/m\S\2 Ao root diam 2.9 cm Ao root area 6.4 cm\S\2 Doppler Measurements and Calculations MV E max lawson 79.3 cm/sec MV A max lawson 90.6 cm/sec MV E/A 0.88 MV P1/2t max lawson 77.6 cm/sec MV P1/2t 58.2 msec MVA(P1/2t) 3.8 cm\S\2 MV dec slope 390.5 cm/sec\S\2 MV dec time 0.16 sec Ao V2 max 124.1 cm/sec Ao max PG 6.2 mmHg Ao max PG (full) 2.8 mmHg LV V1 max PG 3.3 mmHg LV V1 max 91.1 cm/sec TR max lawson 251.5 cm/sec RVSP(TR) 28.3 mmHg RAP systole 3.0 mmHg
--- NOTE | 2018-02-11 18:01 | Pharmacy Progress Note ---
Pharmacist Stroke Counseling Date of Service Feb 11, 2018. Scope Pharmacy has been consulted to provide medication discharge counseling for this patient admitted with ischemic stroke/hemorrhagic stroke/ transient ischemic attack as per the Pharmacist Discharge Counseling for Stroke Patients Protocol. Medications on Discharge New Medications: Lisinopril (Zestril) 5 Mg Tab 5 MG PO DAILY for 30 Days, #30 TAB Atorvastatin (Lipitor) 40 Mg Tab 40 MG PO QAM for 30 Days, #30 TAB Continued Medications: Amantadine Hcl (Symmetrel) 100 Mg Tab 1 TAB PO Q12 Carbidopa/Levodopa (Sinemet 25MG/100MG) Tab 2 TAB PO QID, 0 Refills PT TAKES 0600/1000/1400/1800 Clonazepam (Klonopin) 2 Mg Tab 2 MG PO HS Clopidogrel (Plavix) 75 Mg Tab 75 MG PO 0600, TAB Diphenhydramine Hcl (Benadryl Allergy) 25 Mg Tab 50 MG PO HS SLEEP AID Entacapone (Comtan) 200 Mg Tab 200 MG PO QID PT TAKES 0600/1000/1400/1800 Entacapone (Comtan) 200 Mg Tab 200 MG PO 0600, TAB Gabapentin (Neurontin) 300 Mg Cap 300 MG PO BID PT TAKE ONE TABLET AT 0600 AND ONE TABLET AT 2200 Oxybutynin Chloride (Ditropan) 5 Mg Tab 1 TAB PO TID 0600/1400/1800 Pimavanserin Tartrate (Nuplazid) 17 Mg Tab 17 MG PO BID 0600/1800 Rotigotine (Neupro) 1 Mg/24 Hr Dis 1 MG TOP 1000 TAKE 1000 Sennosides-Docusate Sodium (Stool Softener) 1 Tab Tab 1 TAB PO 1000 takes 1000 daily softgel Discontinued Medications: Clopidogrel Bisulfate (Clopidogrel) 75 Mg Tab 75 MG PO QAM for 30 Days, #30 TAB Quetiapine Fumarate (Seroquel) 25 Mg Tab 25 MG PO HS Action The above medications, specifically ones for stroke prophylaxis, have been reviewed in detail with the patient and patient sales solutions representative prior to discharge. This includes indication, common adverse reactions, drug interactions, and medication administration. Medication counseling has been employed using the teach-back method to ensure understanding. Outcome The patient and patient sales solutions representative have demonstrated understanding of the medications. Please note, they are aware that the pharmacist will call them within 72 hours post-discharge to confirm that the appropriate medications are being taken and answer any further medication related questions the patient might have at that time. Contact information Individual to be contacted: Maximo Hope Relationship to patient (if applicable): Son Phone number: [phone] Best time to call: n/a Additional comments: Spoke with patient and her caregiver. Son is on Lipitor so familiar with drug. Patient does not have any problems with Plavix (has been on x 1 month). Thank you for allowing pharmacy to be involved in the care of this patient. Please call [phone] with any additional questions
[2018-02-11] MEDS ORDERED: CLONAZEPAM 1 MG TAB PO SCH ×2 (21:00)
[2018-02-11] MEDS ORDERED: QUETIAPINE FUMARATE 25 MG TAB PO SCH (21:00)
[2018-02-12] MEDS ORDERED: ATORVASTATIN 40 MG TAB PO SCH (09:00)
--- NOTE | 2018-02-15 15:35 | Pharmacy Progress Note ---
Pharmacist Post D/C Phone Note Date of phone call: Feb 15, 2018. The patient and/or patient livestock sales representative(s) were unable to be reached for a follow-up phone call within the 72 hour time frame. Discharge counseling pharmacist contact information has already been provided to the patient should questions arise. Thank you for allowing us to be involved in the care of this patient.
== END 2018-02-11 18:11 | disposition home or self-care (01) | DRG 69 ==
LOC: EDBD 22:03 → C.EDB 22:04 → C.2E 02-11 01:56 → ENRESERV 02-11 02:12
PROVIDERS: ADMIT Hospitalist; ATTEND Family Medicine
DX: G45.9 Transient cerebral ischemic attack, unspecified (principal); R47.01 Aphasia; R29.810 Facial weakness; G83.21 Monoplegia of upper limb affecting right dominant side; G31.83 Neurocognitive disorder with Lewy bodies; F02.80 Dementia in other diseases classified elsewhere, unspecified severity, without behavioral disturbance, psychotic disturbance, mood disturbance, and anxiety; Z79.02 Long term (current) use of antithrombotics/antiplatelets; Z79.899 Other long term (current) drug therapy; Z86.73 Personal history of transient ischemic attack (TIA), and cerebral infarction without residual deficits